=== PATIENT | female | born 1990 | race Caucasian/White ===

== ENCOUNTER 2021-04-07 09:19 | Outpatient (REF) | payer OTHER, SELFPAY ==
[2021-04-07 10:43] LABS: MANUAL DIFF FLAG NO
[2021-04-07 10:48] LABS: Basophils Percent Auto 0.7 % (0-2); Eosinophils Absolute Auto 0.2 X10*3/uL (0.0-0.4); Eosinophils Percent Auto 2.5 % (0-4); Hematocrit 40.3 % (37-47); Hemoglobin 13.5 g/dl (12.0-16.0); Imm Gran Abs Auto 0.02 X10*3/uL (0.00-0.03); Imm Gran Pct Auto 0.3 % (0.0-0.4); Lymphocytes Absolute Auto 2.1 X10*3/uL (1.2-4.9); Lymphocytes Percent Auto 34.8 % (20-40); Mean Corpuscular HGB Conc 33.5 g/dl (31.0-35.0); Mean Corpuscular Hemoglobin 29.3 pg (27.0-33.0); Mean Corpuscular Volume 87.6 fL (80-98); Mean Platelet Volume 10.5 fL (9.4-12.3); Monocytes Absolute Auto 0.3 X10*3/uL (0.1-1.2); Monocytes Percent Auto 5.6 % (2-11); Neutrophils Absolute Auto 3.3 X10*3/uL (2.0-8.3); Neutrophils Percent Auto 56.1 % (45-73); Platelet Count 287 X10*3/uL (160-400); Red Cell Distribution Width 13.2 % (11.0-16.0); White Blood Count 5.9 X10*3/uL (4.8-10.8)
[2021-04-07 10:55] LABS: Estimated Average Glucose 97 mg/dL; Hemoglobin A1C 111.9952 umol/L
[2021-04-07 11:05] LABS: Alanine Aminotransferase 15 U/L (0-31); Albumin Level 4.8 g/dL (3.5-5.0); Alkaline Phosphatase 85 U/L (39-117); Anion Gap 15 (12-20); Aspartate Amino Transferase 20 U/L (5-31); Bilirubin Total 0.5 mg/dL (0.0-1.0); Blood Urea Nitrogen 10 mg/dL (9-16); C Reactive Protein 0.38 mg/dL (< or = 0.50); Carbon Dioxide 23 mmol/L (22-29); Chloride 101 mmol/L (96-108); Cholesterol 258 mg/dL; Estimated Glomerular Filt Rate > 60; Glucose Random 85 mg/dL (60-115); HDL Cholesterol 49 mg/dL; LDL Cholesterol Calculated 189 mg/dl; Potassium 4.3 mmol/L (3.3-5.1); Sodium 135 mmol/L (135-145); Triglycerides 103 mg/dL
[2021-04-07 11:29] LABS: Vitamin D 25-OH Total 28.2 ng/mL (>30)
[2021-04-07 11:38] LABS: Erythrocyte Sedimentation Rate 16 MM/HR (0-20)
[2021-04-09 08:13] LABS: HBsAGNum1 0.17 S/CO (0.00-0.99); Hepatitis B Surface Antigen Negative (Negative)
[2021-04-09 08:14] LABS: ~HepC Num1 0.23 S/CO (0.00-0.79); ~Hepatitis C Antibody Nonreactive (Nonreactive)
[2021-04-09 08:29] LABS: ~Hepatitis B Surface Antibody REACTIVE (Nonreactive)
[2021-04-09 08:42] LABS: Folate 9.4 ng/mL (> or = 4.0); Vitamin B12 425 pg/mL (200-900)
[2021-04-09 09:35] LABS: HIV AB/AG Nonreactive (Nonreactive); HIV Num 1 0.04 S/CO (0.00-0.99)
[2021-04-09 23:32] LABS: Anti Nuclear Antibody Pattern Mitotic, Centrosome; Anti Nuclear Antibody Screen POSITIVE (NEGATIVE)
== END 2021-04-07 09:20 | disposition home or self-care (01) ==
LOC: HO.LAB 09:19
PROVIDERS: PCP Internal Medicine; Visit Provider Internal Medicine
DX: F32.1 Major depressive disorder, single episode, moderate (principal); F51.04 Psychophysiologic insomnia; M54.41 Lumbago with sciatica, right side; R53.82 Chronic fatigue, unspecified
CPT/HCPCS: 36415; 80053; 80061; 82306; 82607; 82746; 83036; 84443; 85025; 85652; 86038; 86039; 86140; 86706; 86803; 87340; 87389

== ENCOUNTER 2022-09-20 10:40 | Emergency (ER) | payer OTHER, SELFPAY ==
[2022-09-20 10:55] VITALS: BP 111/60; PULSE 73; RESP 16; TEMP 36.7; O2SAT 97; BMI 38.7
--- NOTE | 2022-09-20 11:26 | ED_ITS ---
HPI - General Adult General Chief complaint: General Medical Stated complaint: Inhaled Diesel Fumes Time Seen by Provider: 09/20/22 11:16 Source: patient and family Mode of arrival: ambulatory Limitations: no limitations History of Present Illness HPI narrative: 32-year-old female came in after patient smelled diesel fuel inhalation at work. Came in for evaluation after fell dizzy and almost going to pass out after she smelled the exhaust of diesel operating generator at work, patient was at her small office with no window in the room, patient had to go outside felt slightly better came in for further evaluation of her symptoms. Related Data Allergies Allergy/AdvReac Type Severity Reaction Status Date / Time No Known Allergies Allergy Verified 09/20/22 11:25 Review of Systems Review of Systems: All other systems are reviewed and are negative Constitutional: Reports as per HPI and Reports no additional constitutional complaints Eyes: Reports as per HPI and Reports no additional eye complaints Reports system reviewed and no additional complaints, except as documented Cardiovascular: Reports as per HPI and Reports no additional cardiovascular complaints Respiratory: Reports as per HPI and Reports no additional respiratory complaints Gastrointestinal: Reports as per HPI and Reports no additional gastrointestinal complaints Genitourinary: Reports no additional female genitourinary complaints Musculoskeletal: Reports no additional musculoskeletal complaints Skin/Breast: Reports system reviewed and no additional complaints, except as docu Psychiatric: Reports no additional psychiatric complaints Endocrine: Reports no additional endocrine complaints Hematologic/Lymphatic: Reports no additional hematologic/lymphatic complaints Allergic/Immunologic: Reports no additional allergic/immunologic complaints Reports system reviewed and no additional complaints, except as documented and Reports Abnormal speech present [facility] Social History Social History Advance Directives: No Advance Directives Information Provided: No Physical Exam ED Vital Signs: Vital Signs - 24 hr 09/20/22 10:55 Temperature 98.0 F Pulse Rate 73 Respiratory Rate 16 Blood Pressure 111/60 Pulse Oximetry 97 Oxygen Delivery Method Room Air BMI result Body Mass Index 38.7 Vital signs have been reviewed as appeared to be correct. Blood pressure normal. Heart rate normal. Respiration rate normal. Temperature normal. Oxygen saturation normal. Appearance: Alert. Oriented X3. No acute distress. Head: Normal external exam. Normocephalic. Atraumatic. No Lilly signs noted. No raccoon eyes noted Eyes: PERRLA. EOMI. Conjunctiva and sclera normal. Eyelids normal. ENT: TM's Normal. Pharynx normal. Uvula midline. Moist mucous membranes. No trismus noted. No drooling noted. No muffled voice noted. Neck: Normal inspection. Neck supple. FROM. No adenopathy. Thyroid Normal. No meningeal signs. No neck mass noted. CVS: Normal heart rate and rhythm. Heart sound normal. No murmurs noted. Pulses normal throughout. Respiratory: No respiratory distress. Painless inspiration. Breath sounds normal. No wheezes/rales/rhonchi noted. Chest nontender. No accessory muscle usage noted or decreased air movement noted. Abdomen: Soft and nontender. Bowel sounds normal in all 4 quadrants. No distention noted. No organomegaly noted. No visible injury noted. Back: No CVA tenderness. Full range of motion noted. Skin: Skin warm and dry. Normal skin color. Normal skin turgor. No rashes/lesions/lacerations noted. Extremities: No lower extremity edema. Extremities exhibit normal range of motion. Extremities nontender. Neuro: Oriented X 3. Cranial nerve exam: II-XII are grossly intact No motor deficit. No sensory deficit. Reflexes normal. Course Course Course Narrative: 32-year-old female came in for evaluation of dizziness after inhalation of diesel generator exhaust, normal carbon monoxide was no smoke inhalation, patient has been asymptomatic while she was in the emergency department on 2 L of nasal cannula. No respiratory distress no difficulty breathing. Medical Decision Making Differential Diagnosis Differential Diagnoses: The differential diagnosis associated with the presentation includes (Carbon monoxide poison, suffocation, irritation of upper respiratory track.) Discharge Plan Discharge Clinical Impression: Inhalation injury due to chemical Patient Disposition: Home, Self-Care Instructions: Smoke Inhalation (ED)
[2022-09-20 12:19] LABS: Carbon Monoxide Refer to POC result
[2022-09-20 12:19] LABS: MANUAL DIFF FLAG NO
[2022-09-20 12:21] LABS: Basophils Absolute Auto 0.1 X10*3/uL (0.0-0.2); Basophils Percent Auto 0.8 % (0-2); Eosinophils Absolute Auto 0.1 X10*3/uL (0.0-0.4); Hematocrit 38.7 % (37.0-47.0); Hemoglobin 13.1 g/dl (12.0-16.0); Imm Gran Abs Auto 0.01 X10*3/uL (0.00-0.03); Imm Gran Pct Auto 0.2 % (0.0-0.4); Lymphocytes Absolute Auto 2.1 X10*3/uL (1.2-4.9); Lymphocytes Percent Auto 33.6 % (20-40); Mean Corpuscular HGB Conc 33.9 g/dl (31.0-35.0); Mean Corpuscular Hemoglobin 29.3 pg (27.0-33.0); Mean Corpuscular Volume 86.6 fL (80.0-98.0); Monocytes Absolute Auto 0.4 X10*3/uL (0.1-1.2); Monocytes Percent Auto 6.9 % (2-11); Neutrophils Absolute Auto 3.5 x10*3/uL (2.0-8.3); Neutrophils Percent Auto 56.5 % (45-73); Platelet Count 274 X10*3/uL (160-400); Red Blood Count 4.47 X10*6/uL (4.20-5.50); White Blood Count 6.1 X10*3/uL (4.8-10.8)
[2022-09-20 12:22] LABS: Carbon Monoxide POC 2.6 %
[2022-09-20 12:38] LABS: Anion Gap 10 (12-20); Blood Urea Nitrogen 10 mg/dL (9-16); Calcium 9.5 mg/dL (8.4-10.2); Carbon Dioxide 28 mmol/L (22-29); Chloride 106 mmol/L (96-108); Creatinine Clr Calc Pharmacy 113.1; Estimated Glomerular Filt Rate > 60; Glucose Random 89 mg/dL (60-115); Potassium 4.2 mmol/L (3.3-5.1); Sodium 140 mmol/L (135-145)
[2022-09-20 12:42] LABS: HCG Quantitative < 2 mIU/mL
[2022-09-20 13:29] VITALS: BP 116/81; PULSE 71; RESP 18; O2SAT 96
== END 2022-09-20 13:32 | disposition home or self-care (01) ==
PROVIDERS: Emergency Provider Emergency Medicine
DX: T58.01XA Toxic effect of carbon monoxide from motor vehicle exhaust, accidental (unintentional), initial encounter (principal); Y92.9 Unspecified place or not applicable; Z79.899 Other long term (current) drug therapy
CPT/HCPCS: 36415; 80048; 82375; 84702; 85025; 99283

== ENCOUNTER 2023-03-02 21:45 | Observation (INO) | payer OTHER, SELFPAY ==
--- NOTE | ~2023-03-02 | US_ITS ---
EXAMINATION: US ABDOMEN LIMITED CLINICAL INFORMATION: Cholecystitis. COMPARISON: None available. TECHNIQUE: Real-time imaging of the right upper quadrant abdominal viscera. FINDINGS: PANCREAS: Most of the pancreas obscured by overlying gas.. LIVER: The liver is normal in size. The liver contour is normal. Parenchymal echogenicity is increased.. No focal hepatic lesion. There is no intrahepatic biliary duct dilatation seen. GALLBLADDER: There are multiple echogenic gallstones and echogenic bile in the neck of the gallbladder. Gallbladder wall thickness measures 0.3-1.2). No pericholecystic fluid seen. COMMON BILE DUCT: Normal in caliber measuring 0.5 cm in diameter. RIGHT KIDNEY: Normal. No hydronephrosis. No renal calculi or focal parenchymal lesions. The kidney measures 10.1 cm in maximum dimension. FREE FLUID: None. US/US abdomen limited IMPRESSION: 1. Cholelithiasis with echogenic bile in the neck of the gallbladder. There is mild wall thickening. No pericholecystic fluid collection. 2. Rest of the limited right upper quadrant ultrasound is unremarkable..
--- NOTE | ~2023-03-02 | CT_ITS ---
EXAMINATION: CT ABDOMEN AND PELVIS WITH CONTRAST CLINICAL INFORMATION: Abdominal pain COMPARISON: None available. TECHNIQUE: Multidetector volumetric images were obtained from the superior aspect of the liver through the pubic symphysis following administration 85 mL of Omnipaque 350 intravenous contrast. Sagittal and coronal reformatted images were obtained on the technologist's workstation. Oral contrast: No This CT examination was performed using dose optimization techniques as appropriate, variously including the following: *Automated exposure control *Adjustment of mA and/or kV according to patient size (this includes techniques or standardized protocols for targeted exams where dose is matched to indication/reason for exam; i.e. extremities or head) *Use of iterative reconstruction technique DLP: 654 mGy-cm FINDINGS: LUNG BASES: There is dependent bibasilar atelectasis. The heart size is normal.. LIVER, GALLBLADDER, AND BILIARY TREE: The liver is normal in size, shape, and attenuation. No focal hepatic lesion or biliary ductal dilatation is present. The gallbladder is distended with diffuse gallbladder wall thickening and pericholecystic fluid collection. The enhancing 1 cm nodule in the neck of the gallbladder. No radiopaque calculi seen. The CBD is normal caliber. PANCREAS: Unremarkable. SPLEEN: Unremarkable. ADRENAL GLANDS: Unremarkable. KIDNEYS AND URETERS: The kidneys are normal in size, shape, and attenuation. No hydronephrosis, hydroureter, or calculi seen. No perinephric stranding. BLADDER: Unremarkable. GASTROINTESTINAL TRACT: There is scattered stool and gas seen throughout the colon without distention. The small bowel loops are normal caliber. Appendix is not visualized. No free air or free fluid seen. ABDOMINAL WALL: No significant hernia is appreciated. LYMPH NODES: Normal. VASCULAR: Unremarkable. PELVIC VISCERA: Unremarkable. OSSEOUS STRUCTURES: Unremarkable. CT/CT abdomen pelvis w IV con IMPRESSION: Suspect acalculus cholecystitis. In addition there is enhancing nodule in neck of the gallbladder wall. Mild constipation without obstruction. Appendix is not seen. Fleischner guidelines were followed.
[2023-03-02 21:51] VITALS: BP 126/84; PULSE 83; RESP 18; TEMP 36.8; O2SAT 96; BMI 37.6
[2023-03-02 22:12] LABS: MANUAL DIFF FLAG NO
[2023-03-02 22:15] LABS: Basophils Absolute Auto 0.1 X10*3/uL (0.0-0.2); Basophils Percent Auto 0.4 % (0-2); Eosinophils Percent Auto 0.1 % (0-4); Hematocrit 40.9 % (37.0-47.0); Hemoglobin 14.1 g/dl (12.0-16.0); Imm Gran Abs Auto 0.04 X10*3/uL (0.00-0.03); Imm Gran Pct Auto 0.3 % (0.0-0.4); Lymphocytes Absolute Auto 1.4 X10*3/uL (1.2-4.9); Lymphocytes Percent Auto 10.8 % (20-40); Mean Corpuscular HGB Conc 34.5 g/dl (31.0-35.0); Monocytes Absolute Auto 0.4 X10*3/uL (0.1-1.2); Monocytes Percent Auto 2.7 % (2-11); Neutrophils Absolute Auto 11.1 x10*3/uL (2.0-8.3); Neutrophils Percent Auto 85.7 % (45-73); Platelet Count 371 X10*3/uL (160-400); Red Blood Count 4.87 X10*6/uL (4.20-5.50); Red Cell Distribution Width 13.1 % (11.0-16.0); White Blood Count 12.9 X10*3/uL (4.8-10.8)
[2023-03-02 22:18] LABS: Appearance Urine Clear; Color Urine Yellow; Glucose Urine UA Negative (Negative); Leukocyte Esterase Urine Negative (Negative); Nitrite Urine Negative (Negative); PH 5.5 (5.0-9.0); Specific Gravity - Urine 1.025 (1.005-1.025); UMIC TRIGGER UACC YES; Urine Blood Moderate (2+) (Negative); Urine Ketones 80 mg/dL (Negative); Urine Protein Trace mg/dL (Neg-Trace)
[2023-03-02 22:20] LABS: UPreg QC Valid YES; Urine Pregnancy NEGATIVE (NEGATIVE)
[2023-03-02 22:23] LABS: Bacteria Urine None Seen (None Seen); Squamous Epithelial Cell Urine 0-2 /HPF (0-2); WBC Urine 0-5 /HPF (0-5)
[2023-03-02 22:39] LABS: Alanine Aminotransferase 17 U/L (0-31); Albumin Level 4.4 g/dL (3.5-5.0); Alkaline Phosphatase 111 U/L (39-117); Anion Gap 17 (12-20); Aspartate Amino Transferase 21 U/L (5-31); Bilirubin Total 0.5 mg/dL (0.0-1.0); Blood Urea Nitrogen 6 mg/dL (9-16); Calcium 10.2 mg/dL (8.4-10.2); Carbon Dioxide 22 mmol/L (22-29); Chloride 99 mmol/L (96-108); Creatinine Clr Calc Pharmacy 91.6; Estimated Glomerular Filt Rate > 60; Glucose Random 123 mg/dL (60-115); Potassium 4.4 mmol/L (3.3-5.1); Sodium 134 mmol/L (135-145); Total Protein 8.6 g/dL (6.5-8.0)
[2023-03-03] VITALS (21 sets, daily range): BP systolic 104–144; BP diastolic 61–88; PULSE 68–99; RESP 14–20; TEMP 36.1–37.3; O2SAT 92–99
--- NOTE | 2023-03-03 03:29 | ED_ITS ---
HPI - Abdominal Pain General Chief Complaint: Abdominal Pain Stated Complaint: abd pain/constipated/dehydrated Time Seen by Provider: 03/03/23 02:48 History of Present Illness HPI narrative: Patient is a 32-year-old female present today with having abdominal pain. The abdominal pain is diffuse over the entire abdomen. Had a history of IBS. Also had some nausea vomiting. No diarrhea. No fever no chills. Patient does not think she is . No pain on urination. Patient denies any flank pain. No cough no congestion officer symptoms no chest pain. No history of abdominal surgery in the past. question related to fatty food prior to a pain started. Related Data Allergies Allergy/AdvReac Type Severity Reaction Status Date / Time No Known Allergies Allergy Verified 09/20/22 11:25 Review of Systems Review of Systems Positive abdominal pain Yes all other systems are reviewed and are negative PMFSH Past Medical History Attestation statement: The following information was validated with the patient. Social History Social History Alcohol intake: never Smoked in Last 30 Days: No Use of substances other than those prescribed or required for medical reasons: No Advance Directives: No Advance Directives Information Provided: No Patient : No Physical Exam ED Vital Signs: Vital Signs - 24 hr 03/02/23 21:51 03/03/23 02:30 03/03/23 03:39 Temperature 98.2 F 98.4 F Pulse Rate 83 68 Respiratory Rate 18 18 16 Blood Pressure 126/84 144/86 H Pulse Oximetry 96 99 Oxygen Delivery Method Room Air Room Air 03/03/23 05:33 03/03/23 05:34 03/03/23 06:19 Temperature 98.7 F 98.4 F 98.3 F Pulse Rate 77 74 72 Respiratory Rate 16 18 Blood Pressure 142/78 H 135/77 122/78 Pulse Oximetry 99 97 Oxygen Delivery Method Room Air Room Air BMI result Body Mass Index 37.6 Appearance: Alert. Oriented X3. No acute distress. Eyes: Pupils equal, round and reactive to light. ENT: Pharynx normal. Neck: Normal inspection. Neck supple. No lymph nodes noted. No crepitus CVS: Normal heart rate and rhythm. Pulses normal. Normal S1 and S2 Respiratory: No respiratory distress. Breath sounds normal. No Wheezing. No rales Abdomen: Soft, mild epigastric pain, no rebound, no guarding. No rigidity. No distention. good BS x4 Skin: Skin warm and dry. Normal skin color. Normal skin turgor. Extremities: No lower extremity edema. Neurovascular intact to all extremities. No Lacerations. No Rash Neuro: Oriented X 3. No motor deficit. No sensory deficit. Moving all extermities. No slurred speech Medical Decision Making Medical Decision Making [facility] Narrative: positive abdominal pain diffuse over the entire abdomen history of IBS. Patient's LFTs were normal. CT scan showed possible acalculous cholecystitis. Patient's ultrasound is consistent with having cholecystitis. Antibiotic was started. Cultures obtained. Patient's case discussed with surgery. Will admit patient for possible surgery. Patient's urine showed no signs of infection. test was negative unlikely to be related issues. Differential Diagnosis Differential Diagnoses: The differential diagnosis associated with the presentation includes obstruction, abscess, perforation, diverticulitis, cholecystitis Admission/Observation Consideration of admission/observation: Escalation of care including admission/observation considered Consult Healthcare Provider Management of the patient was discussed with: Founding Partner surgery Lab Data [facility] Lab Attestation statement: I reviewed the patient's lab results. 03/02/23 22:07 03/02/23 22:07 Labs: Lab Results 03/02/23 03/02/23 03/02/23 Range/Units 22:05 22:05 22:07 WBC 12.9 H (4.8-10.8) X10*3/uL RBC 4.87 (4.20-5.50) X10*6/uL Hgb 14.1 (12.0-16.0) g/dl Hct 40.9 (37.0-47.0) % MCV 84.0 (80.0-98.0) fL MCH 29.0 (27.0-33.0) pg MCHC 34.5 (31.0-35.0) g/dl RDW 13.1 (11.0-16.0) % Plt Count 371 D (160-400) X10*3/uL MPV 10.0 (9.4-12.3) fL Immature Gran % (Auto) 0.3 (0.0-0.4) % Neut % (Auto) 85.7 H (45-73) % Lymph % (Auto) 10.8 L (20-40) % [place] % (Auto) 2.7 (2-11) % Eos % (Auto) 0.1 (0-4) % Baso % (Auto) 0.4 (0-2) % Lymph # (Auto) 1.4 (1.2-4.9) X10*3/uL [place] # (Auto) 0.4 (0.1-1.2) X10*3/uL Eos # (Auto) 0.0 (0.0-0.4) X10*3/uL Baso # (Auto) 0.1 (0.0-0.2) X10*3/uL Abs Immat Gran (auto) 0.04 H (0.00-0.03) X10*3/uL Absolute Neuts (auto) 11.1 H (2.0-8.3) x10*3/uL Absolute Nucleated RBC 0.000 (0.0-0.012) X10*3/uL Nucleated RBC % (auto) 0.0 (0.0-0.2) /100WBC Sodium (135-145) mmol/L Potassium (3.3-5.1) mmol/L Chloride (96-108) mmol/L Carbon Dioxide (22-29) mmol/L Anion Gap (12-20) BUN (9-16) mg/dL Creatinine (0.5-1.4) mg/dL Estim Creat Clear Calc Estimated GFR Random Glucose (60-115) mg/dL Calcium (8.4-10.2) mg/dL Total Bilirubin (0.0-1.0) mg/dL AST (5-31) U/L ALT (0-31) U/L Alkaline Phosphatase (39-117) U/L Total Protein (6.5-8.0) g/dL Albumin (3.5-5.0) g/dL Urine Color Yellow Urine Appearance Clear Urine pH 5.5 (5.0-9.0) Ur Specific [place] 1.025 (1.005-1.025) Urine Protein Trace (Neg-Trace) mg/dL Urine Glucose (UA) Negative (Negative) mg/dL Urine Ketones 80 (Negative) mg/dL Urine Blood Moderate (2+) H (Negative) Urine Nitrite Negative (Negative) Ur Leukocyte Esterase Negative (Negative) Urine RBC 11-20 H (0-2) /HPF Urine WBC 0-5 (0-5) /HPF Ur Squamous Epith Cells 0-2 (0-2) /HPF Urine Bacteria None Seen (None Seen) Hyaline Casts 3-5 (0-2) /LPF Urine Test NEGATIVE (NEGATIVE) 03/02/23 Range/Units 22:07 WBC (4.8-10.8) X10*3/uL RBC (4.20-5.50) X10*6/uL Hgb (12.0-16.0) g/dl Hct (37.0-47.0) % MCV (80.0-98.0) fL MCH (27.0-33.0) pg MCHC (31.0-35.0) g/dl RDW (11.0-16.0) % Plt Count (160-400) X10*3/uL MPV (9.4-12.3) fL Immature Gran % (Auto) (0.0-0.4) % Neut % (Auto) (45-73) % Lymph % (Auto) (20-40) % [place] % (Auto) (2-11) % Eos % (Auto) (0-4) % Baso % (Auto) (0-2) % Lymph # (Auto) (1.2-4.9) X10*3/uL [place] # (Auto) (0.1-1.2) X10*3/uL Eos # (Auto) (0.0-0.4) X10*3/uL Baso # (Auto) (0.0-0.2) X10*3/uL Abs Immat Gran (auto) (0.00-0.03) X10*3/uL Absolute Neuts (auto) (2.0-8.3) x10*3/uL Absolute Nucleated RBC (0.0-0.012) X10*3/uL Nucleated RBC % (auto) (0.0-0.2) /100WBC Sodium 134 L (135-145) mmol/L Potassium 4.4 (3.3-5.1) mmol/L Chloride 99 (96-108) mmol/L Carbon Dioxide 22 (22-29) mmol/L Anion Gap 17 (12-20) BUN 6 L (9-16) mg/dL Creatinine 0.85 (0.5-1.4) mg/dL Estim Creat Clear Calc 91.6 Estimated GFR > 60 Random Glucose 123 H (60-115) mg/dL Calcium 10.2 D (8.4-10.2) mg/dL Total Bilirubin 0.5 (0.0-1.0) mg/dL AST 21 (5-31) U/L ALT 17 (0-31) U/L Alkaline Phosphatase 111 (39-117) U/L Total Protein 8.6 H (6.5-8.0) g/dL Albumin 4.4 (3.5-5.0) g/dL Urine Color Urine Appearance Urine pH (5.0-9.0) Ur Specific [place] (1.005-1.025) Urine Protein (Neg-Trace) mg/dL Urine Glucose (UA) (Negative) mg/dL Urine Ketones (Negative) mg/dL Urine Blood (Negative) Urine Nitrite (Negative) Ur Leukocyte Esterase (Negative) Urine RBC (0-2) /HPF Urine WBC (0-5) /HPF Ur Squamous Epith Cells (0-2) /HPF Urine Bacteria (None Seen) Hyaline Casts (0-2) /LPF Urine Test (NEGATIVE) Medications Administered Discontinued Medications Generic Name Dose Route Start Last Admin Trade Name Freq PRN Reason Stop Dose Admin Hydromorphone HCl 0.5 mg 03/03/23 03:22 03/03/23 03:39 Hydromorphone Hcl 0.5 Mg/0.5 Ml Syringe IVPUSH 03/03/23 03:23 0.5 mg ONCE ONE Administration Protocol Sodium Chloride 1,000 mls @ 999 mls/hr 03/03/23 03:30 03/03/23 05:44 Ns IV 03/03/23 04:30 Infused .Q1H1M ROB Infusion Ceftriaxone Sodium 2 gm/ 50 mls @ 100 mls/hr 03/03/23 04:51 03/03/23 05:42 Sodium Chloride IV 03/03/23 05:20 100 mls/hr ONCE ONE Administration Iohexol 85 ml 03/03/23 04:05 03/03/23 04:05 Iohexol 350 Mg/Ml 100 Ml Infus..Btl IV 03/03/23 04:06 85 ml ONCE ONE Administration Ondansetron HCl 4 mg 03/03/23 03:22 03/03/23 03:38 Ondansetron Hcl 4 Mg/2 Ml Vial IVPUSH 03/03/23 03:23 4 mg ONCE ONE Administration Discharge Plan Discharge Clinical Impression: Cholecystitis Patient Disposition: Admitted As Inpatient
[2023-03-03] MEDS: ondansetron HCL 4 MG/2 ML VIAL IVPUSH (03:38)
[2023-03-03] MEDS: HYDROmorphone HCl 0.5 MG/0.5 ML SYRINGE IVPUSH ×2 (03:39→07:29)
[2023-03-03] MEDS: 0.9 % Sodium Chloride 1,000 ML 999 ML IV (03:39)
[2023-03-03] MEDS: iohexoL 350 MG/ML 100 ML INFUS..BTL 85 ML IV (04:05)
[2023-03-03] MEDS: cefTRIAXone sodium 2 GM in 0.9 % Sodium Chloride 50 ML IV (05:42)
--- NOTE | 2023-03-03 05:48 | PC.NURSE ---
patient is having all labs to be drawn and patient will receive all antibiotics patient pain was to a 09/17 patient will continue to be monitored for safety
--- NOTE | 2023-03-03 06:33 | PC.NURSE ---
patient had all labs and blood work to be sent to the lab patient was able to tolerate all meds that was ordered with no issues
--- NOTE | 2023-03-03 07:36 | PHA.MEDREC ---
Pharmacy Consult ? Medication Reconciliation Pharmacy has completed the medication reconciliation.
--- NOTE | 2023-03-03 08:00 | PC.NURSE ---
patient a&ox3, lungs clear, pt c/o 01/15 abd pain- pt medicated for pain per order, pt has been NPO since yesterday morning per pt, pt is aware she is to continue to be NPO for OR. vitals stable, family at bedside, call hill within reach, will continue to monitor.
--- NOTE | 2023-03-03 08:33 | PM.HPGS ---
History of Present Illness History of Present Illness Date of Service: 03/03/23 Chief complaint: abd pain/constipated/dehydrated Narrative: Destinee Alexander is a 32 year old female who presented to the ED with complaints of abdominal pain. She reports she developed some mild central abdominal pain on . This was associated with bloating and constipation. She was recently diagnosed with IBS and she attributed the pain to that. The pain became different yesterday morning and migrated to the epigastric region and she vomited multiple times last night. She was unable to tolerate even water prompting her to seek care in the ED. Work up included CT scan/ABD US which showed gallstones, gallbladder wall thickening and stone/sludge in the gallbladder neck. She had a leukocytosis of 12.9. LFTs WNL. She reports continued pain this morning but somewhat improved following pain meds. Review of Systems Constitutional: Constitutional: Denies chills and Denies fever(s) ENT: Denies dizziness Cardiovascular: Cardiovascular: Denies dyspnea Respiratory: Respiratory: Denies cough and Denies dyspnea Gastrointestinal: Gastrointestinal: Reports as per HPI, Denies diarrhea and Denies hematemesis Genitourinary: Genitourinary: Denies dysuria Integumentary/Breasts: Skin/Breast: Denies rash and Denies jaundice Neurologic: Denies dizziness PMFSH Past Medical History Medical History (Updated 03/03/23 @ 08:41 by Anali Betancourt PA-C) IBS (irritable bowel syndrome) Social History Social History Alcohol intake: never Smoked in Last 30 Days: No Use of substances other than those prescribed or required for medical reasons: No Advance Directives: No Advance Directives Information Provided: No Patient : No Meds Allergies Allergy/AdvReac Type Severity Reaction Status Date / Time No Known Allergies Allergy Verified 09/20/22 11:25 Home Medications Medication Instructions Recorded Confirmed Last Taken Type omeprazole 20 mg capsule,delayed 20 mg PO DAILY@0630 03/03/23 03/03/23 03/02/23 History release Physical Exam Vital Signs: Vital Signs: Last Vital Signs Temp 98.4 F 03/03/23 07:29 Pulse 84 03/03/23 07:29 Resp 18 03/03/23 07:29 BP 108/63 03/03/23 07:29 Pulse Ox 95 03/03/23 07:29 O2 Del Method Room Air 03/03/23 07:29 BMI result Body Mass Index 37.6 Const: General: comfortable, no acute distress and alert Orientation/consciousness: patient oriented x3 Resp: Effort & Inspection: normal respiratory effort Cardio: Rate: regular rate GI: Inspection: No distended Palpation (GI): Soft to palpation, Tenderness to palpation present (GI) in the epigastrum (moderate); Almanzar's sign negative and with no rebound tenderness, no guarding and not rigid Percussion: Yes normal to percussion Skin: General skin exam: no rashes or lesions noted Neuro: General: patient oriented x3 and moves all extremities Extrem: General: Yes no clubbing, cyanosis or edema Results Results Labs: Short CBC 03/02/23 Range/Units 22:07 WBC 12.9 H (4.8-10.8) X10*3/uL Hgb 14.1 (12.0-16.0) g/dl Hct 40.9 (37.0-47.0) % Plt Count 371 D (160-400) X10*3/uL BMP 03/02/23 22:07 Sodium 134 L Potassium 4.4 Chloride 99 Carbon Dioxide 22 BUN 6 L Creatinine 0.85 Calcium 10.2 D Liver Function 03/02/23 Range/Units 22:07 Total Bilirubin 0.5 (0.0-1.0) mg/dL AST 21 (5-31) U/L ALT 17 (0-31) U/L Alkaline Phosphatase 111 (39-117) U/L Albumin 4.4 (3.5-5.0) g/dL Urine 03/02/23 03/02/23 Range/Units 22:05 22:05 Urine Color Yellow Urine Appearance Clear Urine pH 5.5 (5.0-9.0) Ur Specific [place] 1.025 (1.005-1.025) Urine Protein Trace (Neg-Trace) mg/dL Urine Glucose (UA) Negative (Negative) mg/dL Urine Test NEGATIVE (NEGATIVE) Abdomen CT scan report/results: report reviewed and image reviewed Assessment and Plan (1) Acute calculous cholecystitis: Status: Acute Plan 32 year old female who presented with epigastric abd pain, vomiting with epigastric tenderness and imaging showing gallbladder wall thickening. Clinical picture suggestive of acute cholecystitis. She continues to have pain this morning despite antibiotics and analgesics. Given the gallstone lodged at the gallbladder neck, it was recommended to proceed with laparoscopic cholecystitis, possible open. Risks, benefits, alternatives of the procedure were reviewed with the patient including but not limited to bleeding, infection, numbness, pain, poor healing, injury to the liver, bowel or bile ducts, leak, retained stones. The patient understands and wishes to proceed.? Arrangements will be made for this.?All questions were answered. Cont NPO status, IVF. Time Spent With Patient Time: Total time managing care of this patient today ____ minutes. Quality Stroke Does the patient have a stroke diagnosis?: No VTE Prior VTE?: No VTE Risk Level:: Surgical - low VTE Device Contraindication: N/A - Device Ordered VTE Drug Contraindication: Treatment Not Indicated Procedures Date of Service Date of Service: 03/03/23
[2023-03-03] MEDS: Lactated Ringers 1,000 ML 100 ML IVCONT (09:19)
--- NOTE | 2023-03-03 09:36 | PC.NURSE ---
LR administered per provider order, pt's pain reassessed stating pain decreased to 3/10, pt lying comfortably in bed, call hill placed within reach.
[2023-03-03] MEDS: Morphine Sulfate 4 MG/ML CARTRIDGE IVPUSH (10:15)
--- NOTE | 2023-03-03 10:20 | PC.NURSE ---
pt alert and oriented, pt had a pain increase from 3/10 to an 8/10, pain medications administered per provider order, pt tolerated medication administration well, will continue to monitor.
--- NOTE | 2023-03-03 11:48 | PC.NURSE ---
pt to OR with OR transport at [id number]
--- NOTE | 2023-03-03 12:58 | HO.ANESPROP2 ---
HPI - Anesthesia Eval Consult details Narrative: for emergency cholycystectomy PMFSH Active Problems Active Problems: All Active Problems (Updated 03/03/23 @ 11:58 by Valeria Galindo) Cholecystitis (Acute) Acute calculous cholecystitis (Acute) Past Medical History Medical History (Updated 03/03/23 @ 11:58 by Valeria Galindo) Environmental allergies IBS (irritable bowel syndrome) Family History Family history of problems with anesthesia: No Surgical History Surgical History (Updated 03/03/23 @ 11:58 by Valeria Galindo) No pertinent past surgical history History of Problems with Anesthesia: No Social History Social History Alcohol intake: never Patient Tobacco Use Status: Never used Tobacco Smoked in Last 30 Days: No Use of substances other than those prescribed or required for medical reasons: No Are you DNR?: No Advance Directives: No Advance Directives Information Provided: No Patient : No Meds Allergies Allergy/AdvReac Type Severity Reaction Status Date / Time No Known Allergies Allergy Verified 03/03/23 11:58 Active Medications: Current Medications Lactated Ringer's (Lr) 1,000 mls @ 100 mls/hr IVCONT .Q10H ROB Last Admin: 03/03/23 09:19 Dose: 100 mls/hr Morphine Sulfate (Morphine Sulfate 4 Mg/Ml Cartridge) 4 mg IVPUSH Q4H PRN; Protocol PRN Reason: Pain, Severe (Pain Scale 7-10) Last Admin: 03/03/23 10:15 Dose: 4 mg Home Medications Medication Instructions Recorded Confirmed Last Taken Type omeprazole 20 mg capsule,delayed 20 mg PO DAILY@0630 03/03/23 03/03/23 03/02/23 History release Exam Exam Date and Time: March 03, 2023 1258 Height,Weight and Vital Signs: Height 5 ft Weight 87.4 kg Last Vital Signs Temp 99.1 F 03/03/23 11:58 Pulse 85 03/03/23 11:58 Resp 16 03/03/23 11:58 BP 122/80 03/03/23 11:58 Pulse Ox 95 03/03/23 11:58 O2 Del Method Room Air 03/03/23 11:58 Pertinent Lab Results Pertinent Lab Results: Laboratory Tests 03/02/23 03/02/23 03/02/23 22:05 22:05 22:07 WBC 12.9 H RBC 4.87 Hgb 14.1 Hct 40.9 MCV 84.0 MCH 29.0 MCHC 34.5 RDW 13.1 Plt Count 371 D MPV 10.0 Immature Gran % (Auto) 0.3 Neut % (Auto) 85.7 H Lymph % (Auto) 10.8 L Wagoner % (Auto) 2.7 Eos % (Auto) 0.1 Baso % (Auto) 0.4 Lymph # (Auto) 1.4 Wagoner # (Auto) 0.4 Eos # (Auto) 0.0 Baso # (Auto) 0.1 Abs Immat Gran (auto) 0.04 H Absolute Neuts (auto) 11.1 H Absolute Nucleated RBC 0.000 Nucleated RBC % (auto) 0.0 Sodium Potassium Chloride Carbon Dioxide Anion Gap BUN Creatinine Estim Creat Clear Calc Estimated GFR Random Glucose Lactic Acid Calcium Total Bilirubin AST ALT Alkaline Phosphatase Total Protein Albumin Urine Color Yellow Urine Appearance Clear Urine pH 5.5 Ur Specific Wild Horse 1.025 Urine Protein Trace Urine Glucose (UA) Negative Urine Ketones 80 Urine Blood Moderate (2+) H Urine Nitrite Negative Ur Leukocyte Esterase Negative Urine RBC 11-20 H Urine WBC 0-5 Ur Squamous Epith Cells 0-2 Urine Bacteria None Seen Hyaline Casts 3-5 Urine Test NEGATIVE 03/02/23 03/03/23 22:07 06:17 WBC RBC Hgb Hct MCV MCH MCHC RDW Plt Count MPV Immature Gran % (Auto) Neut % (Auto) Lymph % (Auto) Wagoner % (Auto) Eos % (Auto) Baso % (Auto) Lymph # (Auto) Wagoner # (Auto) Eos # (Auto) Baso # (Auto) Abs Immat Gran (auto) Absolute Neuts (auto) Absolute Nucleated RBC Nucleated RBC % (auto) Sodium 134 L Potassium 4.4 Chloride 99 Carbon Dioxide 22 Anion Gap 17 BUN 6 L Creatinine 0.85 Estim Creat Clear Calc 91.6 Estimated GFR > 60 Random Glucose 123 H Lactic Acid 1.0 Calcium 10.2 D Total Bilirubin 0.5 AST 21 ALT 17 Alkaline Phosphatase 111 Total Protein 8.6 H Albumin 4.4 Urine Color Urine Appearance Urine pH Ur Specific Wild Horse Urine Protein Urine Glucose (UA) Urine Ketones Urine Blood Urine Nitrite Ur Leukocyte Esterase Urine RBC Urine WBC Ur Squamous Epith Cells Urine Bacteria Hyaline Casts Urine Test Airway Mallampati Class: I TM Dist: >3cm Neck ROM: Full Loose/Missing/Broken Teeth: No Heart: rr Lungs: cta Assessment and Plan Final Anesthetic Review Family History of Problems with Anesthesia: No History of Problems with Anesthesia: No NPO: Yes ASA Class: I and Emergency Final Preanesthetic Review: No Changes in Pt Med Stat, Meds/Allgs Chart Reviewed and Consent Obtained/Reviewed Patient Risk: Low Procedure Risk: Low Anesthetic Plan Anesthetic Plan: GA Disposition: Standard PACU
--- NOTE | 2023-03-03 13:33 | W.PM.OPN ---
Operative Note Operative Note Date of Service: 03/03/23 Narrative: Preoperative diagnosis: [] Acute cholecystitis Postop diagnosis: [] Acute phlegmonous cholecystitis Procedure [] laparoscopic cholecystectomy Surgeon: [] Chai Transmitter Engineer In Charge: [] khanh Betancourt Type of Anesthesia: [] General Indication for surgery: [] Large thickened phlegmonous inflamed gallbladder. Markedly intrahepatic gallbladder. Corpulent abdomen. Findings: [] Patient is brought to the operating room, placed on the operating table in a supine position, and after adequate level of general anesthesia was induced, the patient's abdomen was prepped and draped in usual sterile fashion. Using a supraumbilical curvilinear incision, Wiley technique was used to insufflate the abdominal cavity to 15 mm of CO2. Upper midline and right subcostal ports were placed under direct laparoscopic view, and the patient was placed in reverse Trendelenburg position, and tilted to the left. A markedly turgid phlegmonous cholecystitis was encountered which required decompressive aspiration in order to grasp the gallbladder with laparoscopic graspers. Gallbladder was retracted superiorly and laterally. Soft omental and gastric adhesions were swept off the gallbladder, where it is hilum was approached. Cystic artery and cystic duct were identified, skeletonized circumferentially and traced directly to the gallbladder. Critical view was obtained. Each was clipped proximally x2, distally x1, and transected. Gallbladder which was very intrahepatic was then cauterized from the gallbladder fossa using Bovie. Specimen was placed in an Endo-Catch bag, and retrieved through the umbilical port. Abdominal cavity was copiously irrigated, and secured hemostasis. All ports were removed under direct laparoscopic view. Wounds were closed in the following manner; umbilical wound has fascia reapproximated using interrupted 0 Vicryl sutures. Skin wounds were closed using subcuticular 4-0 Vicryl sutures followed by Steri-Strips and sterile dressings. Wounds were infiltrated 0.5% Marcaine at completion. Sponge, needle, and instrument counts were reported to be correct. Patient tolerated the procedure well and emerged from anesthesia stable condition. EBL minimal
--- NOTE | 2023-03-10 09:20 | PM.DS ---
DS: Providers Provider Date of Service: 03/03/23 Date of admission: 03/03/23 13:39 Date of discharge: 03/03/23 Primary care physician: [facility] Attending physician on admission: Simon Paula Attending physician on discharge: Simon Paula DS: Diagnosis Discharge Diagnosis (1) Acute calculous cholecystitis: Status: Acute DS: Summary Hospital Course Hospital Course: HPI AT ADMISSION: Destinee Alexander is a 32 year old female who presented to the ED with complaints of abdominal pain. She reports she developed some mild central abdominal pain on . This was associated with bloating and constipation. She was recently diagnosed with IBS and she attributed the pain to that. The pain became different yesterday morning and migrated to the epigastric region and she vomited multiple times last night. She was unable to tolerate even water prompting her to seek care in the ED. Work up included CT scan/ABD US which showed gallstones, gallbladder wall thickening and stone/sludge in the gallbladder neck. She had a leukocytosis of 12.9. LFTs WNL. She reports continued pain this morning but somewhat improved following pain meds. HOSPITAL COURSE: She was admitted to the surgical service for further treatment of the acute cholecystitis. It was recommended to proceed with laparoscopic cholecystectomy possible open. She was added onto the OR schedule. On 03/03/23, a laparoscopic cholecystectomy was performed by Dr. Paula without complication. Operative findings showed a large, thickened, phlegmonous inflamed gallbladder that was markedly intrahepatic. The patient tolerated the procedure well. She was doing well in recovery with good pain control and tolerating a diet. She felt ready for discharge. She was discharged to home in stable condition on 03/03/23. She is to follow up in the office in 1 week. Status at Discharge Functional status at discharge: independent ambulation Time Spent with Patient Time attestation: Total time managing care of this patient today ____ minutes. Discharge coordination time: Less than 30 minutes Quality: Safe Use of Opioids Does Pt have an Active Cancer Diagnosis on the Problem List?: No Quality: Stroke Does the patient have a stroke diagnosis?: No Physical Exam Vital Signs: Vital Signs: Last Vital Signs Temp 97 F 03/03/23 16:07 Pulse 86 03/03/23 16:07 Resp 14 03/03/23 16:07 BP 121/83 03/03/23 16:07 Pulse Ox 96 03/03/23 16:07 O2 Del Method Room Air 03/03/23 16:07 O2 Flow Rate 2 03/03/23 14:34 BMI result Body Mass Index 37.6 Const: General: comfortable, no acute distress and alert Orientation/consciousness: patient oriented x3 Resp: Effort & Inspection: normal respiratory effort GI: Inspection: No distended and Yes incision (clean, intact) Palpation (GI): Soft to palpation, Tenderness to palpation present (GI) (mild incisional), no guarding and not rigid Percussion: Yes normal to percussion Skin: General skin exam: no rashes or lesions noted Neuro: General: patient oriented x3 and moves all extremities DS: Data Data Completed and Pending Completed studies during hospitalization [Text1]: Pending at discharge 03/03/23 13:18 Surgical [PTH] Routine Discharge Plan Discharge Anticipated Discharge Date/Time: 03/03/23 13:45 Patient Disposition: Home, Self-Care Referrals: [facility] [Primary Care Provider] - 1 Week Simon Paula MD [Physician] - 1 Week Discharge Medications: New docusate sodium [Colace] 100 mg capsule 100 mg PO BID PRN (Reason: constipation) Qty: 30 0RF oxycodone-acetaminophen [Percocet] 5-325 mg tablet 1 tab PO Q4H PRN (Reason: pain (scale score 7-10)) Qty: 20 0RF Rx Instructions: Partial Fill upon patient request. Continued omeprazole 20 mg capsule,delayed release(DR/EC) 20 mg PO DAILY@0630 Discharge Orders: Discharge Order (Routine); Ordered 03/03/23 Ordered By: Anali Betancourt Diet: Low fat, low cholesterol Activity on Discharge: No heavy lifting Stand Alone Forms: Patient Portal Discharge page Activity Restrictions/Additional Instructions: Apply an ice pack for short intervals (20 minutes on, followed by at least 20 minutes off) for the first 2 days. Do not apply heat. Do not use creams, lotions, or topical antibiotics. These can cause infection or allergic reaction. Ok to shower 48 hours after your surgery. Remove dressings in 2 days and replace as needed. You have steri strips (small white cloth strips) covering your incision- these will fall off ~1 week. Follow up in office with Dr. Paula in 1 week. ([phone]) No heavy lifting (>10lbs) or strenuous activity! Call Your Doctor If: -Your temperature exceeds 101.5? F -You experience excessive pain or swelling -You have an unexpected reaction to medication -You have excessive bleeding -You experience continued vomiting/nausea -Your incision begins to separate -Your incision shows signs of infection such as increased redness, swelling, excessive pain, drainage (light blood or clear fluid is normal) or heat Care Plan Goals: Return to baseline health and resume normal activities following recovery period. Health Concerns: acute cholecystitis Plan of Treatment: s/p laparoscopic cholecystectomy Pain control; ice pack to incisions for 2 days Follow up in office in 1 week Assessment: Doing well post op Patient Instructions: Laparoscopic Cholecystectomy (DC) Discharge Date/Time: 03/03/23 16:43
== END 2023-03-03 16:43 | disposition home or self-care (01) ==
LOC: HO.ED 03-03 13:41 → HO.EDOVER 03-03 13:44 → HO.S3 03-03 14:44
PROVIDERS: Surgery; Admitting Provider Physician Assistant Surgical; Emergency Provider Emergency Medicine Emergency Medical Services; Visit Provider Physician Assistant Surgical
PROC: 0FT44ZZ Resection of Gallbladder, Percutaneous Endoscopic Approach (ICD-10-PCS; CPT 47562; principal; 2023-03-03 12:30)
DX: K80.00 Calculus of gallbladder with acute cholecystitis without obstruction (principal); R10.9 Unspecified abdominal pain
CPT/HCPCS: 47562; 36415; 74177; 76705; 80053; 81001; 81025; 83605; 85025; 87040; 88304; 96361; 96365; 96375; 96376; 99221; 99285; J0131; J0690; J0696; J1170; J2250; J2270; J2405; J3010; Q9967

== ENCOUNTER → 2023-03-12 13:50 | Outpatient (BNVA) | payer OTHER, SELFPAY | PROVIDERS: Visit Provider Surgery ==

== ENCOUNTER 2024-08-13 12:11 | Outpatient (REF) | payer OTHER, SELFPAY ==
[2024-08-13 13:11] LABS: MANUAL DIFF FLAG NO
[2024-08-13 13:20] LABS: Basophils Absolute Auto 0.1 X10*3/uL (0.0-0.2); Basophils Percent Auto 1.2 % (0-2); Eosinophils Absolute Auto 0.4 X10*3/uL (0.0-0.4); Eosinophils Percent Auto 6.8 % (0-4); Hematocrit 39.4 % (37.0-47.0); Hemoglobin 13.7 g/dl (12.0-16.0); Imm Gran Abs Auto 0.01 X10*3/uL (0.00-0.03); Imm Gran Pct Auto 0.2 % (0.0-0.4); Lymphocytes Absolute Auto 2.2 X10*3/uL (1.2-4.9); Lymphocytes Percent Auto 36.7 % (20-40); Mean Corpuscular HGB Conc 34.8 g/dl (31.0-35.0); Mean Corpuscular Hemoglobin 30.2 pg (27.0-33.0); Mean Corpuscular Volume 86.8 fL (80.0-98.0); Mean Platelet Volume 10.4 fL (9.4-12.3); Monocytes Absolute Auto 0.4 X10*3/uL (0.1-1.2); Monocytes Percent Auto 6.1 % (2-11); Neutrophils Absolute Auto 2.9 x10*3/uL (2.0-8.3); Platelet Count 328 X10*3/uL (160-400); Red Blood Count 4.54 X10*6/uL (4.20-5.50); Red Cell Distribution Width 13.2 % (11.0-16.0); White Blood Count 5.9 X10*3/uL (4.8-10.8)
[2024-08-13 13:35] LABS: Estimated Average Glucose 108 mg/dL; Hemoglobin A1C 124.7733 umol/L; Hemoglobin A1c % 5.4 % (<6.0); Total Hemoglobin (HGBA1C) 3486.9981 umol/L
[2024-08-13 13:42] LABS: Alanine Aminotransferase 27 U/L (0-31); Albumin Level 4.4 g/dL (3.5-5.0); Alkaline Phosphatase 98 U/L (39-117); Anion Gap 12 (12-20); Aspartate Amino Transferase 27 U/L (5-31); Bilirubin Total 0.3 mg/dL (0.0-1.0); Blood Urea Nitrogen 11 mg/dL (9-16); Calcium 9.8 mg/dL (8.4-10.2); Carbon Dioxide 26 mmol/L (22-29); Chloride 105 mmol/L (96-108); Cholesterol 252 mg/dL (<200); Estimated Glomerular Filt Rate > 60; Glucose Random 100 mg/dL (60-115); HDL Cholesterol 41 mg/dL (>40); LDL Cholesterol Calculated 175 mg/dL (<100); Sodium 139 mmol/L (135-145); Total Protein 7.9 g/dL (6.5-8.0); Triglycerides 182 mg/dL (<150)
[2024-08-13 13:58] LABS: HCG Quantitative < 2 mIU/mL
[2024-08-14 14:43] LABS: CT PCR NOT DETECTED (Not Detect.); NG PCR NOT DETECTED (Not Detect.)
[2024-08-16 08:23] LABS: HBS Num1 658.75 mIU/mL (0-7.99); HBsAGNum1 0.63 S/CO (0.00-0.99); HIV AB/AG Nonreactive (Nonreactive); HIV Num 1 0.06 S/CO (0.00-0.99); Hepatitis B Core Antibody Nonreactive (Nonreactive); Hepatitis B Surface Antigen Negative (Negative); ~HepC Num1 0.16 S/CO (0.00-0.79); ~Hepatitis B Surface Antibody REACTIVE (Nonreactive); ~Hepatitis C Antibody Nonreactive (Nonreactive)
[2024-08-16 15:13] LABS: Anti Nuclear Antibody Screen NEGATIVE (NEGATIVE)
[2024-08-17 17:04] LABS: Follicle Stimulating Hormone 1.7 mIU/mL; Prolactin Undiluted 177.3 ng/mL
[2024-08-24 01:30] LABS: Estradiol Ultra Sensitive 7 pg/mL
== END 2024-08-13 12:12 | disposition home or self-care (01) ==
LOC: HO.HHCL 12:11
PROVIDERS: Nurse Practitioner Family; Visit Provider Nurse Practitioner Family
DX: Z00.00 Encounter for general adult medical examination without abnormal findings (principal); N91.1 Secondary amenorrhea; R53.82 Chronic fatigue, unspecified; E66.811 Obesity, class 1; Z13.1 Encounter for screening for diabetes mellitus
CPT/HCPCS: 36415; 80053; 80061; 82670; 83001; 83036; 84146; 84443; 84702; 85025; 86038; 86704; 86706; 86803; 87340; 87389; 87491; 87591

== ENCOUNTER 2024-08-20 14:37 | Outpatient (REF) | payer OTHER, SELFPAY | END 2024-08-20 14:38 | disposition home or self-care (01) | LOC: HO.US 14:37 | PROVIDERS: PCP Nurse Practitioner Family; Visit Provider Nurse Practitioner Family | DX: N91.1 Secondary amenorrhea (principal) | CPT/HCPCS: 76830; 76856 ==

== ENCOUNTER 2024-08-26 11:30 | Outpatient (REF) | payer OTHER, SELFPAY ==
--- NOTE | ~2024-08-26 | MR_ITS ---
EXAMINATION: MR BRAIN WITHOUT AND WITH CONTRAST CLINICAL INFORMATION: Secondary abdomen area. Prolactin level 177.3 COMPARISON: None available. TECHNIQUE: Multiplanar, multisequence MRI of the brain was obtained before and after the intravenous administration of 4.5 mL Gadavist. FINDINGS: The sella is expanded and protrudes into the left sphenoid sinus. There is a 1.1 x 1.4 x 1.4 cm left paracentral hypoenhancing mass occupying almost the entire pituitary gland. Trace rightward deviation of the infundibulum. The suprasellar cistern is normal. The optic chiasm and prechiasmatic optic nerves are normal. The cavernous sinuses are normal. No abnormal intracranial enhancement. No acute intracranial hemorrhage or infarct. No edema, midline shift or hydrocephalus. No acute extra-axial fluid collections. The osseous structures are unremarkable. The pineal gland and remaining midline structures are unremarkable. No orbital pathology. The paranasal sinuses and mastoid air cells are clear. 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 -No acute intracranial abnormality. Electronically signed by: Carrillo Celeste MD 08/26/2024 01:18 PM [facility] [place]
[2024-08-26] MEDS: gadobutroL 7.5 ML VIAL IVPUSH (12:57)
== END 2024-08-26 11:31 | disposition home or self-care (01) ==
LOC: HO.MRI 11:30
PROVIDERS: PCP Nurse Practitioner Family; Visit Provider Nurse Practitioner Family
DX: E22.1 Hyperprolactinemia (principal)
CPT/HCPCS: 70553; A9585

== ENCOUNTER 2024-09-21 09:51 | Outpatient (AMB) | payer OTHER, SELFPAY ==
--- NOTE | 2024-09-21 10:15 | MHC.OFFVIS ---
Vital Signs 09/21/24 10:17 Height 5 ft Weight 197 lb 5.019 oz BMI 38.5 BP 100/68 Blood Pressure Location Rt brachial Position Sitting Pulse 101 H Pulse Source Pulse Oximeter Intake Visit Reasons: Hyperprolactinemia Intake Note: New patient present today for Hyperprolactinemia. Manager Of Sustainability Required: No Accompanied by: Self / Same As Patient Allergies No Known Allergies Allergy (Verified 09/21/24 10:18) Medication List - Last Reconciled 09/21/24 by Oanh Meza MD cabergoline 0.25 mg PO .1xw HPI Comments Details: 34-year-old female coming in today for initial evaluation of hyperprolactinemia and pituitary microadenoma. Labs from 08/13/2024 showed prolactin level elevated at 177.3. Estradiol level of 7 which is low, with a low normal FSH of 1.7. Normal kidney function. TSH normal at 0.6. Lab work was done as she had not had a menstrual cycle for some time . Pituitary MRI from 08/26/2024 showed a pituitary macroadenoma with a 1.4 cm hypoenhancing mass occupying almost the entire pituitary gland. Trace rightward deviation of the infundibulum. Optic chiasm is normal. Cavernous sinus normal. Started on cabergoline 0.25 mg every Friday started 09/03/24. By PCP. She is tolerating it well without any nausea or vomiting. Vision changes: none Headache: once a week or in 2 weeks, not bothered by it Nipple discharge: none , no breast soreness [employer] House[employer] history: Menarche: 9 years of age LMP:2020, 3 years Pregnancies : no In a relationship with cis male but not sexually active currently used to use condoms Was on OCP for seven years stopped in , her periods used to be light on that Change in sense of smell: no Change in ring size: feels increased due to gained weight Change in shoe size: none Reports some fatigue, hot flushes on cheeks. Reports hair loss . Reports occasional loose stools. Patient currently denies heat or cold intolerance, palpitation, mood changes, changes in appearance of eyes or vision changes, tremors, increased diaphoresis or dry skin. ? Easy bruising: yes Proximal muscle weakness: none No DM, HTN Left wrist 2005 while playing basket ball Nausea: none Vomiting:none Lightheadedness: none Weight: GAined 50 lbs in the past 5 years No history of heart disease , valvulopathy Works in HR at [employer] Lives with partner Physical exam General: sitting comfortably in no acute distress HEENT: normocephalic/atraumatic, EOM intact, visual oakley grossly intact Neck: supple, symmetrical, no thyromegaly Cardiac: normal heart sounds Pulm: normal breath sounds B/L, no added breath sounds Abd: not distended, no tenderness Extremities: no edema, no signs of myxedema Neuro: AAO x3, Speech: normal, no facial droop, moving all 4 extremities Laboratory Tests 03/02/23 08/13/24 22:05 12:18 Creatinine 0.82 Estimated GFR > 60 TSH 0.60 Estradiol Ultra LCMSMS 7 FSH 1.7 Prolactin Undiluted 177.3 H Beta HCG, Quant < 2 Urine Test NEGATIVE MR BRAIN WITHOUT AND WITH CONTRAST 08/26/24 CLINICAL INFORMATION: Secondary abdomen area. Prolactin level 177.3 COMPARISON: None available. TECHNIQUE: Multiplanar, multisequence MRI of the brain was obtained before and after the intravenous administration of 4.5 mL Gadavist. FINDINGS: The sella is expanded and protrudes into the left sphenoid sinus. There is a 1.1 x 1.4 x 1.4 cm left paracentral hypoenhancing mass occupying almost the entire pituitary gland. Trace rightward deviation of the infundibulum. The suprasellar cistern is normal. The optic chiasm and prechiasmatic optic nerves are normal. The cavernous sinuses are normal. No abnormal intracranial enhancement. No acute intracranial hemorrhage or infarct. No edema, midline shift or hydrocephalus. No acute extra-axial fluid collections. The osseous structures are unremarkable. The pineal gland and remaining midline structures are unremarkable. No orbital pathology. The paranasal sinuses and mastoid air cells are clear. 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 -No acute intracranial abnormality. Electronically signed by: Carrillo Celeste MD 08/26/2024 01:18 PM [facility] Medical History (Updated 09/21/24 @ 10:51 by Oanh Meza MD) Pituitary macroadenoma Hyperprolactinemia Environmental allergies IBS (irritable bowel syndrome) Surgical History History of laparoscopic cholecystectomy (~03/03/23) Family History Mother Non Hodgkin's lymphoma Father No known health problems Social History Alcohol intake: never Patient Tobacco Use Status: Never used Tobacco Physical Exam Vital Signs: BMI result Body Mass Index 38.5 Assessment & Plan Assessment & Plan (1) Hyperprolactinemia: Code(s): E22.1 - Hyperprolactinemia Category: Medical Plan: 34-year-old female here today for initial evaluation of hyperprolactinemia and pituitary microadenoma. Labs from 08/13/2024 showed prolactin level elevated at 177.3. Estradiol level of 7 which is low, with a low normal FSH of 1.7. Normal kidney function. TSH normal at 0.6. Lab work was done as she had not had a menstrual cycle for some time . Pituitary MRI from 08/26/2024 showed a pituitary macroadenoma with a 1.4 cm hypoenhancing mass occupying almost the entire pituitary gland. Trace rightward deviation of the infundibulum. Optic chiasm is normal. Cavernous sinus normal. Given this is a macroadenoma, we will refer to Ophthalmology for visual field testing. Grossly visual oakley are intact today. In terms of functioning, elevated prolactin level greater than 100 consistent with the size of this adenoma. 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 She does not have any bothersome nipple discharge, she is not trying to get however given no menstrual cycles, we agree with treatment with Cabergoline. Usually this starting doses 0.25 mg twice a week, patient has only been prescribed this to take once a week. For now I will complete testing with a full pituitary panel for evaluation for both hypo secretion and hyper secretion as well as a 24 hour urine cortisol level and then plan to increase her dose of Cabergoline to 0. 25 mg twice a week. We should keep in mind the testing is being done while patient is already on prolactin but I do not think there is much utility in stopping the medication to do a baseline set of blood work. Prolactin levels are repeated in about 6-8 weeks to see if they are downtrending. We will plan to repeat her MRI in 6 months from initiation of treatment which would be in February 2025. Plan: -continue cabergoline 0.25 mg once a week with plan to increase to 0.25 mg twice a week once testing is complete -obtain pituitary panel as well as 24 hour urine cortisol and creatinine levels -plan to repeat labs prior to next appointment in 8 with a prolactin level as well as estradiol and FSH and LH -ophthalmology referral placed for evaluation of visual oakley -MRI pituitary would be repeated February 2025 -follow up in 8 weeks Patient was counseled today regarding side effects of cabergoline including nausea, orthostatic hypotension. Patient does take the medication in the evening with a meal to avoid these. Also counseled regarding side effects of impulse control disorder and cardiac valvulopathy. Given low dosage we will not obtain echocardiogram in her. Normal kidney function noted prior to starting medication. Patient was also counseled regarding gnosticism of menses and increased chance of and to use reliable contraceptive method if she is trying to prevent . Was also counseled to inform us if she has a positive test. Although available evidence suggests cabergoline use early in does not cause harm to the fetus, it is recommended that dopamine agonist therapy be discontinued once is discovered (ES [Melcherelle 2010]; TERA [Amparo 2020]). (2) Pituitary macroadenoma: Code(s): D35.2 - Benign neoplasm of pituitary gland Category: Medical Plan: See above Plan I spent 60 minutes in reviewing the record, seeing the patient and documenting in the medical record. Orders: Orders Cortisol, Free 24Hr Urine Today D35.2 - Benign neoplasm of pituitary gland, E22.1 - Hyperprolactinemia Creatinine, 24 Hr Group Today D35.2 - Benign neoplasm of pituitary gland, E22.1 - Hyperprolactinemia Cortisol Random Today D35.2 - Benign neoplasm of pituitary gland, E22.1 - Hyperprolactinemia DHEA Sulfate Today D35.2 - Benign neoplasm of pituitary gland, E22.1 - Hyperprolactinemia Prolactin Today D35.2 - Benign neoplasm of pituitary gland, E22.1 - Hyperprolactinemia Prolactin Dilution Study Today D35.2 - Benign neoplasm of pituitary gland, E22.1 - Hyperprolactinemia Follicle Stimulating Hormone Today D35.2 - Benign neoplasm of pituitary gland, E22.1 - Hyperprolactinemia Basic Metabolic Panel Today D35.2 - Benign neoplasm of pituitary gland, E22.1 - Hyperprolactinemia Adrenocorticotropic Hormone Today D35.2 - Benign neoplasm of pituitary gland, E22.1 - Hyperprolactinemia Estradiol Ultra Sensitive Today D35.2 - Benign neoplasm of pituitary gland, E22.1 - Hyperprolactinemia Free T4 (Free Thyroxine) Today D35.2 - Benign neoplasm of pituitary gland, E22.1 - Hyperprolactinemia Lutenizing Hormone Today D35.2 - Benign neoplasm of pituitary gland, E22.1 - Hyperprolactinemia Human Growth Hormone Today D35.2 - Benign neoplasm of pituitary gland, E22.1 - Hyperprolactinemia IGF-1 (Somatomedin C) Today D35.2 - Benign neoplasm of pituitary gland, E22.1 - Hyperprolactinemia Thyroid Stimulating Hormone Today D35.2 - Benign neoplasm of pituitary gland, E22.1 - Hyperprolactinemia Testosterone, Free/Total Today D35.2 - Benign neoplasm of pituitary gland, E22.1 - Hyperprolactinemia Referrals Ophthalmology Referral D35.2 - Benign neoplasm of pituitary gland, E22.1 - Hyperprolactinemia Patient Instructions: Do fasting 8 AM blood work Do 24 hour urine collection 24 hr urine collection instructions You have been asked to collect your urine for 24 hours to assess for cortisol excretion. You must choose a 24 hour period of time when you will be home. The morning of the first day, DISCARD the FIRST morning void and then note the time. You will collect every single void from then on for 24 hours. For example, if you wake up at 6am and urinate, flush down that void. You will then collect every drop of urine all day and all night through 6am the following day. You will urinate one last time at 6am for the collection. The jug of urine must be kept in the refrigerator until you bring it to the lab. I will reach out with results See eye doctor Coding Level of Care Code New Pt Level 4 (16955) Complex EM visit Add On G2211 Diagnoses Hyperprolactinemia E22.1 Pituitary macroadenoma D35.2 Time Spent (min) 60
[2024-09-21 10:17] VITALS: BP 100/68; PULSE 101; BMI 38.5
== END 2024-09-21 11:12 | disposition home or self-care (01) ==
PROVIDERS: PCP Nurse Practitioner Family; Visit Provider Student in an Organized Health Care Education/Training Program
DX: E22.1 Hyperprolactinemia (principal); D35.2 Benign neoplasm of pituitary gland
CPT/HCPCS: 99204

== ENCOUNTER 2024-09-24 09:19 | Outpatient (REF) | payer OTHER, SELFPAY ==
[2024-09-24 10:09] LABS: Anion Gap 9 (12-20); Blood Urea Nitrogen 15 mg/dL (9-16); Carbon Dioxide 22 mmol/L (22-29); Chloride 110 mmol/L (96-108); Estimated Glomerular Filt Rate > 60; Glucose Random 100 mg/dL (60-115); Potassium 4.1 mmol/L (3.3-5.1); Sodium 137 mmol/L (135-145)
[2024-09-24 10:24] LABS: Creatinine, mg/dL 71.14
[2024-09-24 10:25] LABS: Free T4 (Free Thyroxine) 1.04 ng/dL (0.71-1.85); Thyroid Stimulating Hormone 1.01 uIU/mL (0.32-4.0)
[2024-09-24 10:50] LABS: Creatinine, 24Hr Urine 1.1 G/Day (1.0-2.0); Total Volume 24 Hour Urine 1500 mL
[2024-09-25 22:34] LABS: DHEA Sulfate 92 mcg/dL (19-237)
[2024-09-29 21:58] LABS: Cortisol Free, 24 Hr Urine 17.3 mcg/24 h (4.0-50.0); Creatinine, 24 Hr Urine 1.12 g/24 h (0.50-2.15); Total Volume, 24 Hr Urine 1500 mL
[2024-09-30 15:34] LABS: IGF-1 (Somatomedin C) 151 ng/mL (53-331); IGF-1 Z Score (Female) 0.1 SD (-2.0 - +2.0)
[2024-10-01 05:24] LABS: Adrenocorticotropic Hormone 15 pg/mL (6-50)
[2024-10-01 18:13] LABS: Testosterone, Free 1.9 pg/mL (0.1-6.4); Testosterone, Total 13 ng/dL (2-45)
[2024-10-02 02:24] LABS: Estradiol Ultra Sensitive 8 pg/mL
[2024-10-05 14:48] LABS: Follicle Stimulating Hormone 5.3 mIU/mL; Lutenizing Hormone 0.6 mIU/mL
== END 2024-09-24 09:20 | disposition home or self-care (01) ==
LOC: HO.LAB 09:19
PROVIDERS: PCP Nurse Practitioner Family; Visit Provider Student in an Organized Health Care Education/Training Program
DX: E22.1 Hyperprolactinemia (principal); D35.2 Benign neoplasm of pituitary gland
CPT/HCPCS: 36415; 80048; 82024; 82530; 82533; 82570; 82627; 82670; 83001; 83002; 83003; 84146; 84305; 84402; 84403; 84439; 84443

== ENCOUNTER 2024-11-03 09:10 | Outpatient (REF) | payer OTHER, SELFPAY ==
--- OUTSIDE RECORDS SUMMARY | 2024-11-03 10:15 | XMS_ITS | Clinical Summary ---
Author Organization [employer] Address [address] [facility] [address] [place] [address] Care Team Providers Care Associate Faculty Name Role Phone Aurea Johnson CARTON REPAIRER Primary Care Provider [phone] Allergies No known active allergies Medications omeprazole OTC (PriLOSEC OTC) 20 MG EC tablet Take 1 tablet (20 mg) by mouth before breakfast. Do not crush, chew, or split. 30 tablet 11 02/19/2023 Active cabergoline (Dostinex) 0.5 MG tablet Take 0.5 tablets (0.25 mg) by mouth 1 (one) time per week. 2 tablet 2 09/03/2024 Active Active Problems Problem Noted Date Diagnosed Date Exercise counseling 10/01/2024 Assessment & Plan (10/03/2024 3:18 PM EST): At least 150 minutes of moderate-intensity physical activity per week, or an equivalent combination of moderate- and vigorous-intensity activity Dietary counseling 10/01/2024 Assessment & Plan (10/03/2024 3:19 PM EST): Eat 3 meals a day, especially breakfast Eat healthy and focus on healthyfood choices daily fruits, vegetables, grains, low fat milk, low carbohydrate and fat Maintain healthy weight as this will lower your risk for many health problems. Eat different types of protein foods in your diet. This can include seafood, lean meats, poultry, beans, peas, lentils, nuts, seeds, soy products, and eggs. Limit foods and beverages higher in added sugars, saturated fat, and sodium Food allergy 10/01/2024 Prolactinoma 09/06/2024 Assessment & Plan (10/03/2024 3:11 PM EST): Continue to take medication as prescribed Keep all medical appointments Inform your provider if having challenges in getting an healthcare or medical appointment Assessment & Plan (09/09/2024 4:09 PM EST): Plan Patient education on prolactinoma Prolactin, Undiluted ng/mL 177.3 Abnormal Start cabergoline 0.5 mg weekly Patient teaching possible side effects of medication Keep appointment with education associate Recheck prolactin level trend in 4 weeks Follow up in 4 weeks Panic 08/24/2024 Health care maintenance 08/18/2024 Assessment & Plan (08/18/2024 10:13 PM EST): Obese Secondary amenorrhea Elevated prolactin HCG negative Plan Transvaginal and Pelvic US MRI brain Referral to toaster operator and neurosurgery Diet and exercise intake counselor STI screening Follow up in 4 weeks to review lab and imaging To schedule pap smear at next visit Hyperprolactinemia 08/18/2024 Assessment & Plan (08/18/2024 2:00 PM EST): Prolactin 177.3 ng/mL 08/14/2024 D/dx prolactinoma, PCOS Plan Referral to neurosurgeon Referral book sorter MRI brain Hx of cholecystectomy 08/18/2024 Secondary amenorrhea 08/13/2024 Assessment & Plan (08/18/2024 1:56 PM EST): No period for over 2 years HCG negative Plan Transvaginal US Pelvic US Chronic fatigue 08/13/2024 Obesity (BMI 30.0-34.9) 08/13/2024 Assessment & Plan (10/03/2024 3:13 PM EST): Discuss weight loss medication with patient, agreed to get more information and discuss at next visit Dietary and exercise counseling Encounters Date Type Department Care Team Description 10/01/2024 1:45 PM EST Office Visit [facility] [address] [place] [phone] Aurea Johnson FNP Food allergy (Primary Dx); Prolactinoma (CMS/HCC); Dietary counseling; Exercise counseling; Obesity (BMI 30.0-34.9) 09/21/[address] [address] Marianela Atkins MA Chart Prep 09/14/[address] [address] Sánchez Ely, LIZ 09/07/[address] [address] Montserrat Harrington, LIZ 09/03/2024 1:45 PM EST Office Visit [address] [address] Aurea Johnson FNP Prolactinoma ([facility]/HCC) (Primary Dx) 09/03/2024 Travel 08/31/[address] [address] Aurea Johnson FNP patient survey 08/31/[address] [address] Marianela Atkins MA Chart Prep 08/30/[address] [address] Sharon Bond NP 08/25/2024 Telephone [facility] [address] [place] [phone] Aurea Johnson FNP 08/18/[address] [address] Aurea Johnson FNP Call Back Request 08/13/2024 10:30 AM EST Office Visit [address] [address] Aurea Johnson FNP Secondary amenorrhea (Primary Dx); Health care maintenance; Hyperprolactinemia (CMS/HCC) 08/13/2024 Orders Only [address] [address] Sharon Bond NP Secondary amenorrhea (Primary Dx); Chronic fatigue; Obesity (BMI 30.0-34.9); Healthcare maintenance 08/12/[address] [facility] [address] [place] [address] Marianela Atkins MA Chart Prep from Last 3 Months Immunizations Name Administration Dates Next Due HPV, Quadrivalent 06/10/2013 Hep B, Unspecified 09/05/2016,06/10/2013 Influenza Injectable Quadriv alant Preservative Free IIV4 MDCK 07/10/2022 Influenza injectable quadrivalent preservative f ree 07/02/2021 MMR 09/05/2016,06/10/2013 Tdap 07/02/2021 Family History Medical History Relation Name Comments non hodgkin Mother Diabetes Paternal Grandmother Relation Name Status Comments Mother Paternal Grandmother Social History Tobacco Use Types Packs/Day Years Used Date Smoking Tobacco: Never Passive Smoke Exposure: Never Smokeless Tobacco: Never Tobacco Cessation:Counseling Given: Not Answered Depression Answer Date Recorded Patient Health Questionnaire-9 Score 7 08/13/2024 Patient Health Questionnaire-9 Score 7 08/13/2024 Last PHQ-9: Questionnaire Data Not on file 1 10/14/2023 Housing Stability Answer Date Recorded What is your housing situation today? I have arvind alegre 07/22/[address] you li ve. Do you have problems with any of the following? None of the above 07/22/2024 Food Insecurity Answer Date Recorded Within the past 12 months, y ou worried that your food would run out before you got money to buy more: Never True 07/22/2024 Within the past 12 months,th e food you bought just didn't last and you didn't have enough money to get more: Never True Transportation Answer Date Recorded In the past 12 months, has l ack of transportation kept you from medical appts, meetings, work or from getting things needed for daily living? No 07/22/2024 Utilities Answer Date Recorded In the past 12 months, has t he electric, gas, oil or water company threatened to shut off services in your home? No 07/22/2024 Depression Answer Date Recorded Patient Health Questionnaire-2 Score 2 08/13/2024 Internet Access Answer Date Recorded Internet Access Q1 Yes 07/22/2024 Internet Access Q2 Not on file 07/22/2024 Comments Unknown Sex and Gender Information Value Date Recorded Sex Assigned at Female 07/08/2022 10:38 AM EDT Legal Sex Female 10:38 AM EDT Gender Identity Female 07/08/2022 10:38 AM EDT Sexual Orientation Don't know 07/08/2022 10 :38 AM EDT Last Filed Vital Signs Vital Sign Reading Time Taken Comments Blood Pressure 120/71 10/01/2024 1:50 PM EST Pulse 78 10/01/2024 1:50 PM EST Temperature 36.7 ??C (98 ??F) 10/01/2024 1:50 PM EST Respiratory Rate 16 10/01/2024 1:50 PM EST Oxygen Saturation 97% 10/01/2024 1:50 PM EST Inhaled Oxygen Concentration - - Weight 90.9 kg (200 lb 6.4 oz) 10/01/2024 1:50 P M EST Height 152.4 cm (5') 10/01/2024 1:50 PM EST Body Mass Index 39.14 10/01/2024 1:50 PM EST Plan of Treatment Upcoming Encounters Date Type Department Care Team (Late st Contact Info) Description 11/26/2024 1:30 PM EDT Office Visit [facility] [address] [place], [place] [phone] Aurea Johnson FNP [address] [place], [place] [phone] Health Maintenance Due Date Last Done Comments Family Planning (PISQ) 2003 Pap Smear 2009 HPV Vaccines (2 - 3-dose series) 07/08/2013 06/10/2013 Hepatitis B Vaccines (3 of 3 - 19+ 3-dose series) 10/31/2016 09/05/2016, 06/10/2013 Cervical Cancer Screening 2018 HPV/Cotest 2018 COVID-19 Vaccine (3 - 2023-2 5 season) 2024 01/24/2021, 01/03/2021 Influenza Vaccine (#1) 2024 , 07/02/2021 SDOH Screening 07/22/2025 07/22/2024 Depression Screening 08/13/2025 08/13/2024, 08/13/2024 Alcohol/Substance Use Screening 10/01/2025 10/01/2024 Tobacco Screening 10/01/2025 10/01/2024 DTaP/Tdap/Td Vaccines (2 - T d or Tdap) 07/02/2031 07/02/2021 Zoster Vaccines (1 of 2) 2038 RSV Patients and Patients Aged 60 years or older (1 - 1-dose 75+ series) 2063 HIV Screening Completed 08/13/2024, 04/07/2021 Hepatitis C Screening Completed 08/13/2024 , 04/07/2021 HIB Vaccines Aged Out No longer eligi ble based on patient's age to complete this topic Hepatitis A Vaccines Aged Out No long er eligible based on patient's age to complete this topic IPV Vaccines Aged Out No longer eligi ble based on patient's age to complete this topic Meningococcal Vaccine Aged Out No randy gregorio eligible based on patient's age to complete this topic Pneumococcal Vaccine: Pediatrics (0 to 5 Years) and At-Risk Patients (6 to 49) Years) Aged Out No longer eligible b ased on patient's age to complete this topic RSV under 20 months Aged Out No longe r eligible based on patient's age to complete this topic Rotavirus Vaccines Aged Out No longer eligible based on patient's age to complete this topic Procedures Procedure Name Priority Date/Time Associated Diagnosis Comments PROLACTIN Routine 09/24/2024 9:44 AM EST Secondary amenorrhea PROLACTIN, DILUTION STUDY Routine 09/24/2024 9:44 AM EST Secondary amenorrhea GROWTH HORMONE (GH) Routine 09/24/2024 9 :44 AM EST Secondary amenorrhea LH Routine 09/24/2024 9:44 AM EST Secondary amenorrhea FSH Routine 09/24/2024 9:44 AM EST Secondary amenorrhea ESTRADIOL Routine 09/24/2024 9:44 AM EST Secondary amenorrhea TESTOSTERONE, FREE (DIALYSIS) AND TOTAL,MS Routine 09/24/2024 9:44 AM EST Secondary amenorrhea ACTH, PLASMA Routine 09/24/2024 9:44 AM EST Secondary amenorrhea IGF 1, LC/MS Routine 09/24/2024 9:44 AM EST Secondary amenorrhea DHEA SULFATE Routine 09/24/2024 9:44 AM EST Secondary amenorrhea CORTISOL RANDOM Routine 09/24/2024 9:44 AM EST Secondary amenorrhea TSH Routine 09/24/2024 9:44 AM EST Secondary amenorrhea T4, FREE Routine 09/24/2024 9:44 AM EST Secondary amenorrhea BASIC METABOLIC PANEL Routine 09/24/2024 9:44 AM EST Secondary amenorrhea CORTISOL FREE, URINE, 24 HOUR Routine 09/24/2024 9:22 AM EST Secondary amenorrhea CREATININE, 24 HR GROUP Routine 09/24/2024 8:30 AM EST Secondary amenorrhea MR BRAIN W AND WO CONTRAST STAT 08/26/2024 11:29 AM EST Hyperprolactinemia (CMS/HCC) US PELVIS TRANSVAGINAL Routine 2:56 PM EST Secondary amenorrhea POCT URINALYSIS DIPSTICK Routine 08/13/2024 12:36 PM EST Health care maintenance HEPATITIS B SURFACE ANTIGEN, EIA Routine 08/13/2024 12:18 PM EST Healthcare maintenance HEPATITIS B CORE AB TOTAL Routine 08/13/2024 12:18 PM EST Healthcare maintenance HEPATITIS B SURFACE ANTIBODY, QUALITATIVE Routine 08/13/2024 12:18 PM EST Healthcare maintenance LIPID PANEL, STANDARD Routine 08/13/2024 12:18 PM EST Healthcare maintenance COMPREHENSIVE METABOLIC PANEL Routine 08/13/2024 12:18 PM EST Chronic fatigue Obesity (BMI 30.0-34.9) HEMOGLOBIN A1C Routine 08/13/2024 12:18 PM EST Chronic fatigue Obesity (BMI 30.0-34.9) CBC WITH AUTO DIFFERENTIAL Routine 08/13/2024 12:18 PM EST Chronic fatigue HIV 1/2 ANTIGEN/ANTIBODY, FOURTH GENERATION W/RFL Routine 08/13/2024 12:18 PM EST Healthcare maintenance HEPATITIS C AB W/REFL TO HCV RNA, QN, PCR Routine 08/13/2024 12:18 PM EST Healthcare maintenance PROLACTIN, DILUTION STUDY Routine 08/13/2024 12:18 PM EST Secondary amenorrhea ESTRADIOL Routine 08/13/2024 12:18 PM EST Secondary amenorrhea FSH Routine 08/13/2024 12:18 PM EST Secondary amenorrhea JENS SCREEN, IFA, W/REFL TITER AND PATTERN Routine 08/13/2024 12:18 PM EST Secondary amenorrhea HCG, TOTAL, QN Routine 08/13/2024 12:18 PM EST Secondary amenorrhea TSH W/REFLEX TO FT4 Routine 08/13/2024 1 2:18 PM EST Secondary amenorrhea POCT , URINE Routine 08/13/2024 12:03 PM EST Secondary amenorrhea CHLAMYDIA/N. GONORRHOEAE RNA, TMA, UROGENITAL Routine 08/13/2024 12:00 AM EST Health care maintenance from Last 3 Months Results * Prolactin, Dilution Study (09/24/2024 9:44 AM EST) Only the most recent of2 resultswithin the time period is included. Prolactin, Undiluted 30.0 ng/mL [facility] Prolactin, Diluted TNP ng/mL [facility] Comment:TEST(S) NOT PERFORME D: PROLACTIN, DILUTEDUNABLE TO REPORTInitial testing necessitateda repeat, but there wasinsufficient sample to perform.THIS TEST WAS PERFORMED AT:[employer] [place] [place] [phone] VIZCARRA MD 09/24/2024 9:44 AM EST 09/24/2024 9:44 AM EST Generic External Data Provider LAB BLOOD ORDERAB LES Final Result Performing Organization Address [facility] de Phone Number [facility] [address] [place] [phone] * Cortisol Random (09/24/2024 9:44 AM EST) Cortisol Random 10.0 ug/dL [facility] Comment:Reference Range*: Be fore 10 am 6.2-19.4 ug/dL After 5 pm 2.3-11.9 ug/dL*Please interpret above results accordingly.This test was performed using the [employer] chemiluminescentmethod. Values obtained from different assay methods cannotbe used interchangeably.Patients receiving fludrocortisone, prednisolone orprednisone may show artificially elevated cortisol valuesdue to cross-reactivity. 09/24/2024 9:44 AM EST 09/24/2024 9:44 AM EST Generic External Data Provider LAB BLOOD ORDERAB LES Final Result Performing Organization Address [facility] Co de Phone Number [facility] [address] [place] [phone] * Prolactin (09/24/2024 9:44 AM EST) Prolactin TNP [facility] Comment:DUPLICATE 09/24/2024 9:44 AM EST 09/24/2024 9:44 AM EST us Generic External Data Provider LAB BLOOD ORDERAB LES Final Result Performing Organization Address [facility] Co de Phone Number [facility] [address] [place] [phone] * IGF-1, LC/MS (09/24/2024 9:44 AM EST) IGF 1, LC/MS 151 53 - 331 ng/mL [facility] Z Score (Male) TNP [facility] Z Score (Female) 0.1 -2.0 - 2.0 SD [facility] Comment:This test was develo ped and its analytical performancecharacteristics have been determined by [employer].It has not been cleared or approved by FDA. This assay hasbeen validated pursuant to the CLIA regulations and is usedfor clinical purposes.THIS TEST WAS PERFORMED AT:[employer] [id number] [facility] [place] [address]ZGXWKROBB ALVAREZ MD,PHD,ADAL 09/24/2024 9:44 AM EST 09/24/2024 9:44 AM EST Generic External Data Provider LAB BLOOD ORDERAB LES Final Result Performing Organization Address [facility] Co de Phone Number [facility] [address] [place] [phone] * Growth Hormone (GH) (09/24/2024 9:44 AM EST) Growth Hormone TNP ng/mL [facility] Comment:UNABLE TO REPORTInit ial testing necessitateda repeat, but there wasinsufficient sample to perform.THIS TEST WAS PERFORMED AT:[employer] [address] [address]KYIWCCHRISSY VIZCARRA MD 09/24/2024 9:44 AM EST 09/24/2024 9:44 AM EST Generic External Data Provider LAB BLOOD ORDERAB LES Final Result Performing Organization Address [facility] de Phone Number [facility] [address] [place] [phone] * DHEA Sulfate (09/24/2024 9:44 AM EST) DHEA Sulfate 92 19 - 237 mcg/dL [facility] Comment:THIS TEST WAS PERFOR MED AT:[employer] [address] [phone] VIZCARRA MD 09/24/2024 9:44 AM EST 09/24/2024 9:44 AM EST [facility] External Data Provider LAB BLOOD ORDERAB LES Final Result Performing Organization Address [facility] [address] [place] [phone] * Estradiol (09/24/2024 9:44 AM EST) Only the most recent of2 resultswithin the time period is included. Estradiol Ultra Sensitive 8 pg/mL [facility] Comment:Female Reference Ran ges for Estradiol, Ultrasensitive (pg/mL): Follicular Phase: 39-375 Luteal Phase: 48-440 Postmenopausal Phase: < or = 10This test was developed and its analytical performancecharacteristics have been determined by [employer].It has not been cleared or approved by FDA. This assay hasbeen validated pursuant to the CLIA regulations and is usedfor clinical purposes.THIS TEST WAS PERFORMED AT:[employer] [id number] KEVIN GOME[place] [address]PCIMCROBB ALVAREZ MD,PHD,ADAL 09/24/2024 9:44 AM EST 09/24/2024 9:44 AM EST Generic External Data Provider LAB BLOOD ORDERAB LES Final Result Performing Organization Address [facility] de Phone Number [facility] [address] [place] [phone] * ACTH, Plasma (09/24/2024 9:44 AM EST) ACTH, Plasma 15 6 - 50 pg/mL [facility] Comment:Reference range appl ies only to specimens collectedbetween 7am-10am.THIS TEST WAS PERFORMED AT:[id number] [place] [address]LLRHCZCSAQIB SMITH MD,PHD 09/24/2024 9:44 AM EST 09/24/2024 9:44 AM EST us Generic External Data Provider LAB BLOOD ORDERAB LES Final Result [facility] [address] [place] [phone] * Testosterone, Free (Dialysis) And Total, MS (09/24/2024 9:44 AM EST) Testosterone, Total 13 2 - 45 ng/dL [facility] Comment:For additional infor andie, please refer tohttp://education.[employer])/faq/JylvnMoquifzuygteWBNHLUHVL142(This link is being provided for informational/educational purposes only.)This test was developed and its analytical performancecharacteristics have been determined by [employer] [place], [place]. It hasnot been cleared or approved by the U.S. Food and DrugAdministration. This assay has been validated pursuantto the CLIA regulations and is used for clinicalpurposes. Testosterone, Free 1.9 0.1 - 6.4 pg/mL [facility] Comment:This test was develo ped and its analytical performancecharacteristics have been determined by [employer] [place], [place]. It hasnot been cleared or approved by the U.S. Food and DrugAdministration. This assay has been validated pursuantto the CLIA regulations and is used for clinicalpurposes.THIS TEST WAS PERFORMED AT:[employer]/[id number] [place] [address]WGJJOJISAQIB SMITH MD,PHD 09/24/2024 9:44 AM EST 09/24/2024 9:44 AM EST us Generic External Data Provider LAB BLOOD ORDERAB LES Final Result Performing Organization Address [facility] Co de Phone Number [facility] [address] [place] [phone] * TSH (09/24/2024 9:44 AM EST) Thyroid Stimulating Hormone 1.01 0.32 - 4.0 uIU/mL [facility] Comment:TSH 3rd Generation ( [facility]) 09/24/2024 9:44 AM EST 09/24/2024 9:44 AM EST Generic External Data Provider LAB BLOOD ORDERAB LES Final Result Performing Organization Address [facility] de Phone Number [facility] [address] [place] [phone] * T4, Free (09/24/2024 9:44 AM EST) Free T4 (Free Thyroxine) 1.04 0.71 - 1.85 ng/dL [facility] 09/24/2024 9:44 AM EST 09/24/2024 9:44 AM EST Generic External Data Provider LAB BLOOD ORDERAB LES Final Result Performing Organization Address [facility] de Phone Number [facility] [address] [place] [phone] * LH (09/24/2024 9:44 AM EST) Lutenizing Hormone 0.6 mIU/mL [facility] Comment:Reference Range Fol licular Phase 1.9-12.5 Mid-Cycle Peak 8.7-76.3 Luteal Phase 0.5-16.9 Postmenopausal 10.0-54.7THIS TEST WAS PERFORMED AT:[employer] [address] [phone] VIZCARRA MD 09/24/2024 9:44 AM EST 09/24/2024 9:44 AM EST Generic External Data Provider LAB BLOOD ORDERAB LES Final Result Performing Organization Address [facility] de Phone Number [facility] [address] [place] [phone] * FSH (09/24/2024 9:44 AM EST) Only the most recent of2 resultswithin the time period is included. Pathologist [facility] Follicle Stimulating Hormone 5.3 mIU/mL [facility] Comment:Reference Range Foll icular Phase 2.5-10.2 Mid-cycle Peak 3.1-17.7 Luteal Phase 1.5- 9.1 Postmenopausal 23.0-116.3THIS TEST WAS PERFORMED AT:[employer] [address] [address]PHQZQCHRISSY VIZCARRA MD 09/24/2024 9:44 AM EST 09/24/2024 9:44 AM EST [facility] External Data Provider LAB BLOOD ORDERAB LES Final Result Performing Organization Address [facility] de Phone Number [facility] [address] [place] [phone] * (ABNORMAL) Basic Metabolic Panel (09/24/2024 9:44 AM EST) Pathologist [facility] Sodium 137 135 - 145 mmol/L [facility] Potassium 4.1 3.3 - 5.1 mmol/L [facility] Chloride 110(H) 96 - 108 mmol/L [facility] Carbon Dioxide 22 22 - 29 mmol/L [facility] Anion Gap 9(L) 12 - 20 [facility] Urea Nitrogen (BUN) 15 9 - 16 mg/dL [facility] Creatinine, Serum 0.77 0.5 - 1.4 mg/dL [facility] Estimated Glomerular Filt Rate >60 [facility] Comment:Chronic Kidney Disea se: Estimated GFR < 60 mL/min/1.96m6Bhjwnp Kidney Disease: Estimated GFR < 15 mL/min/1.73m2 Glucose 100 60 - 115 mg/dL [facility] Calcium 9.0 8.4 - 10.2 mg/dL [facility] 09/24/2024 9:44 AM EST 09/24/2024 9:44 AM EST us Generic External Data Provider LAB BLOOD ORDERAB LES Final Result [facility] [address] [place] [phone] * Cortisol, Free, 24 Hour Urine (09/24/2024 9:22 AM EST) Cortisol, Free, 24 hr Urine 17.3 4.0 - 50.0 mcg/24 h [facility] Comment:This test was develo ped and its analytical performancecharacteristics have been determined by [employer].It has not been cleared or approved by FDA. This assay hasbeen validated pursuant to the CLIA regulations and is usedfor clinical purposes. Creatinine, Urine 1.12 0.50 - 2.15 g/24 h [facility] Comment:THIS TEST WAS PERFOR MED AT:[employer] [id number] [place] [address]ZHQVYROBB ALVAREZ MD,PHD,ADAL Total Volume 1500 mL [facility] 09/24/2024 9:22 AM EST 09/24/2024 10:04 AM EST Narrative [facility] - 09/29/2024 9:58 PM EST [id number] us Generic External Data Provider LAB BLOOD ORDERAB LES Final Result Performing Organization Address [facility] de Phone Number [facility] [address] [place] [phone] * CREATININE, 24 HR GROUP (09/24/2024 8:30 AM EST) Creatinine, 24 Hour Urine 1.1 1.0 - 2.0 G/Day [facility] Creatinine, Urine 71.14 [facility] Urine Total Volume 24 Hour 1,500 mL [facility] 09/24/2024 8:30 AM EST 09/24/2024 9:59 AM EST Narrative [facility] - 09/24/2024 10:50 AM EST [id number] us Generic External Data Provider LAB URINE ORDERAB LES Final Result Performing Organization Address [facility] de Phone Number [facility] [address] [place] [phone] * Mr Brain w/ and w/o Contrast (08/26/2024 11:29 AM EST) Anatomical Region Laterality Modality Brain Magnetic Resonan ce 08/26/2024 11:2 9 AM EST Narrative 08/26/2024 1:21 PM EST ? [facility] ?[address] ?[place] [address] ? Magnetic Resonance Report ? Signed ? Patient: Benjamin,Destinee L ?MR#: [id number] ?? [id number] ? : 1990 ?Acct:[id number] ? Age/Sex: 34 / F ?ADM Date: 12/19/24 ? Loc: HO.MRI ? Attending Dr: Aurea Martinezo CARTON REPAIRER ? Ordering Physician: ElizabethAurea CARTON REPAIRER ?? Date of Service: 08/26/24 ?? Procedure(s): MR head/brain wo/w con ?? Accession Number(s): [id number] ? cc: Aurea Johnson CARTON REPAIRER ? EXAMINATION: ?? MR BRAIN WITHOUT AND WITH CONTRAST ? CLINICAL INFORMATION: ?? Secondary abdomen area. Prolactin level 177.3 ? COMPARISON: ?? None available. ? TECHNIQUE: ?? Multiplanar, multisequence MRI of the brain was obtained before and ?? after the intravenous administration of 4.5 mL Gadavist. ? FINDINGS: ?? The sella is expanded and protrudes into the left sphenoid sinus. There ?? is a 1.1 x 1.4 x 1.4 cm left paracentral hypoenhancing mass occupying ?? almost the entire pituitary gland. Trace rightward deviation of the ?? infundibulum. The suprasellar cistern is normal. The optic chiasm and ?? prechiasmatic optic nerves are normal. The cavernous sinuses are normal. ? No abnormal intracranial enhancement. ? No acute intracranial hemorrhage or infarct. ? No edema, midline shift or hydrocephalus. ?? No acute extra-axial fluid collections. ? The osseous structures are unremarkable. ? The pineal gland and remaining midline structures are unremarkable. ? No orbital pathology. ?? The paranasal sinuses and mastoid air cells are clear. ? MR/MR head/brain wo/w con ?? IMPRESSION: ?? -1.4 cm hypoenhancing mass occupying almost the entire pituitary gland ?? most compatible with a microadenoma. ? -No acute intracranial abnormality. ? Electronically signed by: ??Carrillo Celeste MD ??08/26/2024 01:18 PM EST RP ? Dictated By: ?Carrillo Celeste MD ? Signed By: ?<Electronically signed by Carrillo Celeste MD in OV> ? 08/26/24 1318 ? DD/ 1129 ? TD/TT: 08/26/24 1230 ? [employer] Founder: ? Procedure Note Lenny Kemp - 08/26/[address] [address] Magnetic Resonance Report Signed Patient: Destinee Alexander LMR#: [id number] : 1990Acct:[id number] Age/Sex: 34 / FADM Date: 08/26/24 Loc: HO.MRI Attending Dr: Aurea ARRIOLA Ordering Physician: Aurea Johnson Date of Service: 08/26/24 Procedure(s): MR head/brain wo/w con Accession Number(s): [id number] cc: Aurea Johnson EXAMINATION: MR BRAIN WITHOUT AND WITH CONTRAST CLINICAL INFORMATION: Secondary abdomen area. Prolactin level 177.3 COMPARISON: None available. TECHNIQUE: Multiplanar, multisequence MRI of the brain was obtained before and after the intravenous administration of 4.5 mL Gadavist. FINDINGS: The sella is expanded and protrudes into the left sphenoid sinus. There is a 1.1 x 1.4 x 1.4 cm left paracentral hypoenhancing mass occupying almost the entire pituitary gland. Trace rightward deviation of the infundibulum. The suprasellar cistern is normal. The optic chiasm and prechiasmatic optic nerves are normal. The cavernous sinuses are normal. No abnormal intracranial enhancement. No acute intracranial hemorrhage or infarct. No edema, midline shift or hydrocephalus. No acute extra-axial fluid collections. The osseous structures are unremarkable. The pineal gland and remaining midline structures are unremarkable. No orbital pathology. The paranasal sinuses and mastoid air cells are clear. 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 -No acute intracranial abnormality. Electronically signed by: Carrillo Celeste MD 08/26/2024 01:18 PM EST Dictated By: Carrillo Celeste MD Signed By: <Electronically signed by Carrillo Celeste MD in OV> 08/26/24 1318 DD/ 1129 TD/TT: 08/26/24 1230 [employer] Founder: us Aurea ARRIOLA IMG MRI PROCEDURES Final Resul t * US Pelvis Transvaginal (08/20/2024 2:56 PM EST) Anatomical Region Laterality Modality Pelvis Ultrasound 08/20/2024 2:5 6 PM EST Narrative 09/29/2024 5:39 AM EST ? [facility] ?[address] ?[place] [address] ? Ultrasound Report ? Signed ? Patient: Benjamin,Destinee L ?MR#: [id number] ?? [id number] ? : 1990 ?Acct:[id number] ? Age/Sex: 34 / F ?ADM Date: 08/20/24 ? Loc: HO.US ? Attending Dr: Aurea ARRIOLA ? Ordering Physician: Aurea Johnson ?? Date of Service: 08/20/24 ?? Procedure(s): US pelvic and transvaginal ?? Accession Number(s): [id number] ? cc: Aurea Johnson ? EXAMINATION: ? US PELVIS ? CLINICAL INFORMATION: ? Amenorrhea, last menstrual period 2 years ago. ? COMPARISON: ?? CT abdomen and pelvis of 03/03/2023. ? TECHNIQUE: ?? Ultrasound of the pelvis is performed using both transabdominal and ?? transvaginal transducers along with Doppler. Transvaginal imaging is ?? performed due to inadequate visualization transabdominally. ? FINDINGS: ?? Anteverted uterus measures 4.8 x 2.4 x 2.6 cm. ? Endometrial thickness is 2 mm. ? Right ovary measures 1.1 x 1.2 x 0.9 cm, volume 0.6 mL. ? Left ovary measures 2.1 x 1.2 x 1.1 cm, volume 1.4 mL. ? Minimal amount of fluid in the endocervical canal. ? A 0.7 x 0.7 x 0.6 cm right adnexal cyst appears simple. ? Limited visualization due to bowel gas. ? US/US pelvic and transvaginal ?? IMPRESSION: ?? 1. Endometrial thickness is 2 mm. ? 2.A 0.7 x 0.7 x 0.6 cm right adnexal cyst appears simple. ? Electronically signed by: ??Jenn Jenkins MD ??09/29/2024 05:36 AM EST ?? RP ? Dictated By: ?Jenn Jenkins MD ? Signed By: ?<Electronically signed by Jenn Jenkins MD in OV> ? 09/29/24 0536 ? DD/ 1456 ? TD/TT: 08/20/24 1508 ? [employer] Founder: ? Procedure Note Donotuseinterpreter, Image - 09/29/[address] [address] Ultrasound Report Signed Patient: Destinee Alexander LMR#: [id number] : 1990Acct:[id number] Age/Sex: 34 / FADM Date: 08/20/24 Loc: HO.US Attending Dr: Aurea ARRIOLA Ordering Physician: Aurea Johnson Date of Service: 08/20/24 Procedure(s): US pelvic and transvaginal Accession Number(s): [id number] cc: Aurea Johnson EXAMINATION: US PELVIS CLINICAL INFORMATION: Amenorrhea, last menstrual period 2 years ago. COMPARISON: CT abdomen and pelvis of 03/03/2023. TECHNIQUE: Ultrasound of the pelvis is performed using both transabdominal and transvaginal transducers along with Doppler. Transvaginal imaging is performed due to inadequate visualization transabdominally. FINDINGS: Anteverted uterus measures 4.8 x 2.4 x 2.6 cm. Endometrial thickness is 2 mm. Right ovary measures 1.1 x 1.2 x 0.9 cm, volume 0.6 mL. Left ovary measures 2.1 x 1.2 x 1.1 cm, volume 1.4 mL. Minimal amount of fluid in the endocervical canal. A 0.7 x 0.7 x 0.6 cm right adnexal cyst appears simple. Limited visualization due to bowel gas. US/US pelvic and transvaginal IMPRESSION: 1. Endometrial thickness is 2 mm. 2.A 0.7 x 0.7 x 0.6 cm right adnexal cyst appears simple. Electronically signed by: Jenn Jenkins MD 09/29/2024 05:36 AM EST Dictated By: Jenn Jenkins MD Signed By: <Electronically signed by Jenn Jenkins MD in OV> 09/29/24 0536 DD/ 1456 TD/TT: 08/20/24 1508 [employer] Founder: Aurea Michaelwoo MONSONP IMG US PROCEDURES Final Result * (ABNORMAL) POCT Urinalysis (08/13/2024 12:36 PM EST) Pathologist [facility] Color, UA Yellow Clarity, UA Clear Glucose, UA Negative Bilirubin, UA Negative Ketones, UA Negative Spec Grav, UA 1.025 Blood, UA Positive(A) Negative, None Detected Comment:Trace-lysed pH, UA 6.5 Protein, UA Negative Urobilinogen, UA 0.2 Leukocytes, UA Negative Negative, Rare, Trace Nitrite, UA Negative Negative, None Detected QC Media Lot # [id number] Lot# Expiration Date Urine 08/13/2024 12:3 6 PM EST Aurea Johnson [facility] POINT OF CARE TEST ENTER/EDIT ORDERABLES Final Result * TSH W/Reflex to FT4 (08/13/2024 12:18 PM EST) Pathologist [facility] TSH reflex Free T4 0.60 0.32 - 4.0 uIU/mL [facility] Blood Venous blood specimen / Unknown 08/13/2024 12:18 PM EST 08/13/2024 12:55 PM EST Sharon Bond NP LAB BLOOD ORDERABLES Final Resul t [facility] [address] [place] [phone] * (ABNORMAL) CBC auto differential (08/13/2024 12:18 PM EST) Pathologist [facility] White Blood Count 5.9 4.8 - 10.8 X10*3/uL [facility] Red Blood Count 4.54 4.20 - 5.50 X10*6/uL [facility] Hemoglobin 13.7 12.0 - 16.0 g/dl [facility] Hematocrit 39.4 37.0 - 47.0 % [facility] Mean Corpuscular Volume 86.8 80.0 - 98.0 fL [facility] Mean Corpuscular Hemoglobin 30.2 27.0 - 33.0 pg [facility] Mean Corpuscular HGB Conc 34.8 31.0 - 35.0 g/dl [facility] Red Cell Distribution Width 13.2 11.0 - 16.0 % [facility] Platelet Count 328 160 - 400 X10*3/uL [facility] Mean Platelet Volume 10.4 9.4 - 12.3 fL [facility] Neutrophils Percent Auto 49.0 45 - 73 % [facility] Imm Gran Pct Auto 0.2 0.0 - 0.4 % [facility] Lymphocytes Percent Auto 36.7 20 - 40 % [facility] Monocytes Percent Auto 6.1 2 - 11 % [facility] Eosinophils Percent Auto 6.8(H) 0 - 4 % [facility] Basophils Percent Auto 1.2 0 - 2 % [facility] NRBC Pct Auto 0.0 0.0 - 0.2 /100WBC [facility] Neutrophils Absolute Auto 2.9 2.0 - 8.3 x10*3/uL [facility] Imm Gran Abs Auto 0.01 0.00 - 0.03 X10*3/uL [facility] Lymphocytes Absolute Auto 2.2 1.2 - 4.9 X10*3/uL [facility] Monocytes Absolute Auto 0.4 0.1 - 1.2 X10*3/uL [facility] Eosinophils Absolute Auto 0.4 0.0 - 0.4 X10*3/uL [facility] Basophils Absolute Auto 0.1 0.0 - 0.2 X10*3/uL [facility] NRBC Abs Auto 0.000 0.0 - 0.012 X10*3/uL [facility] Blood Venous blood specimen / Unknown 08/13/2024 12:18 PM EST 08/13/2024 12:55 PM EST us Sharon Bond IDENTIFICATION TECHNICIAN LAB BLOOD ORDERABLES Final Resul t Performing Organization Address [facility] Co de Phone Number [facility] [address] [place] [phone] * Hepatitis C Antibody with Reflex to HCV, RNA, Quantitative, Real-Time PCR (08/13/2024 12:18 PM EST) Hepatitis C Antibody Nonreactive Nonreactive [facility] Comment:Antibodies to HCV no t detected; does not exclude early acuteHCV infection. Blood Venous blood specimen / Unknown 08/13/2024 12:18 PM EST 08/13/2024 12:55 PM EST us Sharon Bond NP LAB BLOOD ORDERABLES Final Resul t Performing Organization Address [facility] de Phone Number [facility] [address] [place] [phone] * Hepatitis B surface antigen, EIA (08/13/2024 12:18 PM EST) Hepatitis B Surface Ag Negative Negative [facility] Blood Venous blood specimen / Unknown 08/13/2024 12:18 PM EST 08/13/2024 12:55 PM EST us Sharon Bond NP LAB BLOOD ORDERABLES Final Resul t Performing Organization Address [facility] Co de Phone Number [facility] [address] [place] [phone] * Hepatitis B Core Antibody, Total (08/13/2024 12:18 PM EST) Hepatitis B Core Antibody Nonreactive Nonreactive [facility] Blood Venous blood specimen / Unknown 08/13/2024 12:18 PM EST 08/13/2024 12:55 PM EST us Sharon Bond NP LAB BLOOD ORDERABLES Final Resul t Performing Organization Address [facility] Co de Phone Number [facility] [address] [place] [phone] * HIV-1/2 Antigen and Antibodies, Fourth Generation, with Reflexes (08/13/2024 12:18 PM EST) Pathologist [facility] HIV AB/AG Nonreactive Nonreactive [facility] Comment:HIV-1 p24 Ag and/or HIV-1/HIV-2 Ab not detected.A test result that is nonreactive does not exclude thepossibility of exposure to or infection with HIV-1 and/orHIV-2. Nonreactive results in this assay for individualswith prior exposure to HIV-1 and/or HIV-2 may be due toantigen and antibody levels that are below the limit ofdetection of this assay.The [employer] HIV Ag/Ab Combo assay result andsupplemental assay results should be interpreted inconjunction with the patient's clinical presentation,history and other laboratory results. If the results areinconsistent with clinical evidence, additional testing issuggested to confirm the result. Blood Venous blood specimen / Unknown 08/13/2024 12:18 PM EST 08/13/2024 12:55 PM EST us Sharon Bond NP LAB BLOOD ORDERABLES Final Resul t Performing Organization Address [facility]/ZIP Co de Phone Number [facility] [address] [place] [phone] * Hepatitis B Surface Antibody, Qualitative (08/13/2024 12:18 PM EST) [facility] ~Hepatitis B Surface Antibody REACTIVE Nonreactive [facility] Comment:REACTIVE: > 11.99 mI U/mL Blood Venous blood specimen / Unknown 08/13/2024 12:18 PM EST 08/13/2024 12:55 PM EST Sharon Bond NP LAB BLOOD ORDERABLES Final Resul t Performing Organization Address [facility] Co de Phone Number [facility] [address] [place] [phone] * JENS Screen,IFA, with Reflex to Titer and Pattern (08/13/2024 12:18 PM EST) Anti Nuclear Antibody Screen NEGATIVE NEGATIVE [facility] Comment:JENS IFA is a first l ine screen for detecting thepresence of up to approximately 150 autoantibodies invarious autoimmune diseases. A negative JENS IFA resultsuggests an JENS-associated autoimmune disease is notpresent at this time, but is not definitive. If thereis high clinical suspicion for Sjogren's syndrome,testing for anti-SS-A/Ro antibody should be considered.Anti-Juana-1 antibody should be considered for clinicallysuspected inflammatory myopathies.AC-0: NegativeInternational Consensus on JENS Patterns(https://doi.org/10.1515/lifv-2181-1100)For additional information, please refer tohttp://education.[employer]/faq/ITJ823(This link is being provided for informational/educational purposes only.)THIS TEST WAS PERFORMED AT:[employer] [place] [phone] VIZCARRA MD JENS Titer TNP [facility] JENS Pattern [facility] JENS TITER 2 (REF LAB) [facility] JENS Pattern 2 [facility] JENS TITER 3 [facility] JENS PATTERN 3 [facility] Blood Venous blood specimen / Unknown 08/13/2024 12:18 PM EST 08/13/2024 12:55 PM EST us Sharon Bond NP LAB BLOOD ORDERABLES Final Resul t [facility] [address] [place] [phone] * hCG, Total, Quantitative (08/13/2024 12:18 PM EST) HCG Quantitative <2 mIU/mL [facility] Comment:Weeks post LMP Appro ximate hCG(Last Menstrual Period) Range (mIU/ml)3 - 4 weeks 9 - 1304 - 5 weeks 75 - 2,6005 - 6 weeks 850 - 20,8006 - 7 weeks 4000 - 100,2007 - 12 weeks 11,500 - 289,11265 - 16 weeks 18,300 - 137,03595 - 29 weeks (2nd trimester) 1,400 - 53,85880 - 41 weeks (3rd trimester) 940 - 60,000The Dominguez B- hCG assay is used for the early detection ofpregnancy; it cannot be used to diagnose any conditionunrelated to . If a B-hCG level is not supportedby the clinical evidence, results should be confirmed by analternative method (qualitative urine hCG, for example). Blood Venous blood specimen / Unknown 08/13/2024 12:18 PM EST 08/13/2024 12:55 PM EST us Sharon Bond NP LAB BLOOD ORDERABLES Final Resul t Performing Organization Address [facility] de Phone Number [facility] [address] [place] [phone] * Hemoglobin A1c (08/13/2024 12:18 PM EST) Hemoglobin A1c 5.4 <6.0 % [facility] Comment:Hemoglobin A1C Refer ence Range Adults: 4.8 - 6.0 % Non diabetic: < 6.0 % Goal: < 7.0 %Additional Action Suggested: > 8.0 %Note: Hemoglobin A1c results are invalid for patients with abnormal amounts of HbF. Blood transfusions may impact the HbA1c concentration in the patient sample. Estimated Average Glucose 108 mg/dL [facility] Comment:eAG = Estimated ave rage glucose which is %A1C expressed asaverage glucose, using the formula of the X5I-ZinctqbAaunori Glucose study (ADAG), Diabetes Care, Vol.31,#8,Apr. 2007 Blood Venous blood specimen / Unknown 08/13/2024 12:18 PM EST 08/13/2024 12:55 PM EST us Sharon Bond NP LAB BLOOD ORDERABLES Final Resul t Performing Organization Address [facility] Co de Phone Number [facility] [address] [place] [phone] * (ABNORMAL) Lipid Panel, Standard (08/13/2024 12:18 PM EST) Triglycerides 182(H) <150 mg/dL [facility] Comment:Desirable Triglyceri de: less than 150 mg/dLBorderline High Triglyceride 150-199 mg/dLHigh Triglyceride: 200-499 mg/dLVery High Triglyceride: greater than or equal to 5OO mg/dL Cholesterol 252(H) <200 mg/dL [facility] Comment:Desirable Cholestero l: less than 200 mg/dLBorderline High Cholesterol: 200-239 mg/dLHigh Cholesterol: greater than 239 mg/dL LDL Cholesterol Calculated 175(H) <100 mg/dL [facility] Comment:Desirable LDL: less than 100 mg/dLNear Optimal/Above Optimal LDL: 110- 129 mg/dLBorderline High LDL: 130-159 mg/dLHigh LDL: 160-189 mg/dLVery High LDL: greater than or equal to 190 mg/dL HDL Cholesterol 41 >40 mg/dL [facility] Comment:Desirable HDL: great er than 40 mg/dL Note: This HDL assay may give artificially low results in patients with liver disease. Blood Venous blood specimen / Unknown 08/13/2024 12:18 PM EST 08/13/2024 12:55 PM EST us Sharon Bond IDENTIFICATION TECHNICIAN LAB BLOOD ORDERABLES Final Resul t [facility] [address] [place] [phone] * Comprehensive Metabolic Panel (08/13/2024 12:18 PM EST) Sodium 139 135 - 145 mmol/L [facility] Potassium 4.0 3.3 - 5.1 mmol/L [facility] Chloride 105 96 - 108 mmol/L [facility] Carbon Dioxide 26 22 - 29 mmol/L [facility] Anion Gap 12 12 - 20 [facility] Urea Nitrogen (BUN) 11 9 - 16 mg/dL [facility] Creatinine, Serum 0.82 0.5 - 1.4 mg/dL [facility] Estimated Glomerular Filt Rate >60 [facility] Comment:Chronic Kidney Disea se: Estimated GFR < 60 mL/min/1.75g5Ibawzd Kidney Disease: Estimated GFR < 15 mL/min/1.73m2 Glucose 100 60 - 115 mg/dL [facility] Calcium 9.8 8.4 - 10.2 mg/dL [facility] Bilirubin, Total 0.3 0.0 - 1.0 mg/dL [facility] Aspartate Amino Transferase 27 5 - 31 U/L [facility] Alanine Aminotransferase 27 0 - 31 U/L [facility] Total Protein 7.9 6.5 - 8.0 g/dL [facility] Albumin Level 4.4 3.5 - 5.0 g/dL [facility] Alkaline Phosphatase 98 39 - 117 U/L [facility] Blood Venous blood specimen / Unknown 08/13/2024 12:18 PM EST 08/13/2024 12:55 PM EST Sharon Bond IDENTIFICATION TECHNICIAN LAB BLOOD ORDERABLES Final Resul t [facility] [address] [place] [phone] * POCT Urine (08/13/2024 12:03 PM EST) [facility] Preg Test, Ur Negative Negative, Indeterminate, None Detected, Invalid, Specimen unsatisfactory for evaluation, Weakly Positive QC Media Lot # [id number] Lot# Expiration Date [id number] Urine 08/13/2024 12:0 3 PM EST Aurea Johnson CARTON REPAIRER POINT OF CARE TEST ENTER/EDIT ORDERABLES Final Result * Chlamydia/N. Gonorrhoeae RNA, TMA, Urogenitial (08/13/2024 12:00 AM EST) [facility] CT PCR NOT DETECTED Not Detect. [facility] Comment:A not detected test result does not exclude the possibilityof infection because test results can be affected byimproper specimen collection, concurrent antibiotic therapy,or the number of organisms in the specimen which may bebelow the sensitivity of the test. As with many diagnostictests, results from the Xpert CT/NG assay should beinterpreted in conjunction with other laboratory andclinical data available to the clinician.Xpert CT/NG performance has not been evaluated in patientsless than 14 years of age. The assay should not be used forthe evaluationof suspected sexual abuse or for other medico-legalindications. Additional testing is recommended in anycircumstance when false positive or false negative resultscould lead to adverse medical, social or psychologicalconsequences. NG PCR NOT DETECTED Not Detect. [facility] Comment:A not detected test result does not exclude the possibilityof infection because test results can be affected byimproper specimen collection, concurrent antibiotic therapy,or the number of organisms in the specimen which may bebelow the sensitivity of the test. As with many diagnostictests, results from the Xpert CT/NG assay should beinterpreted in conjunction with other laboratory andclinical data available to the clinician.Xpert CT/NG performance has not been evaluated in patientsless than 14 years of age. The assay should not be used forthe evaluationof suspected sexual abuse or for other medico-legalindications. Additional testing is recommended in anycircumstance when false positive or false negative resultscould lead to adverse medical, social or psychologicalconsequences. Urine (Urine, Random) 08/13/2024 08/13/2024 Narrative [facility] - 08/14/2024 2:44 PM EST Urine us Aurea MONSONP LAB MICROBIOLOGY - GENERAL ORD ERABLES Final Result [facility] [address] [place] [phone] from Last 3 Months Insurance [facility] PPO Care Teams Associate Faculty Relationship Specialty Start Date End Date Aurea Johnson FNP [address] [place] [phone] PCP - General Family Medicine 07/02/24
--- OUTSIDE RECORDS SUMMARY | 2024-11-03 10:15 | XMS_ITS | Encounter Summary ---
Author Organization [employer] Address [address] [place] [address] Care Team Providers Care Telephone Sales Representative Name Role Phone Gabriel Johnsonupe SUPERVISOR SANDBLASTER Primary Care Provider [phone] Encounter Details Date Type Department Care Team ([facility] st Contact Info) Description 08/13/2024 Orders Only [facility] MEDICINE [address], [place] [phone] Sharon Bond NP [address] [place], [place] [phone] Secondary amenorrhea (Primary Dx); Chronic fatigue; Obesity (BMI 30.0-34.9); Healthcare maintenance Social History Tobacco Use Types Packs/Day Years Used Date Smoking Tobacco: Never Passive Smoke Exposure: Never Smokeless Tobacco: Never Depression Answer Date Recorded Patient Health Questionnaire-9 [...] Don't know 07/08/2022 10 :38 AM EDT documented as of this encounter Plan of Treatment Upcoming Encounters Date Type Department Care Team ([facility] st Contact Info) Description 11/26/2024 1:30 PM EDT Office Visit [facility] MEDICINE [address], [place] [phone] Aurea Johnson FNP [address] [place] [phone] documented as of this encounter Procedures Procedure Name Priority Date/Time Associated Diagnosis Comments PROLACTIN, DILUTION STUDY Routine 09/24/2024 9:44 AM EST Secondary amenorrhea CORTISOL RANDOM Routine 09/24/2024 9:44 AM EST Secondary amenorrhea PROLACTIN Routine 09/24/2024 9:44 AM EST Secondary amenorrhea IGF 1, LC/MS Routine 09/24/2024 9:44 AM EST Secondary amenorrhea GROWTH HORMONE (GH) Routine 09/24/2024 9 :44 AM EST Secondary amenorrhea DHEA SULFATE Routine 09/24/2024 9:44 AM EST Secondary amenorrhea ESTRADIOL Routine 09/24/2024 9:44 AM EST Secondary amenorrhea ACTH, PLASMA Routine 09/24/2024 9:44 AM EST Secondary amenorrhea TESTOSTERONE, FREE (DIALYSIS) AND TOTAL,MS Routine 09/24/2024 9:44 AM EST Secondary amenorrhea TSH Routine 09/24/2024 9:44 AM EST Secondary amenorrhea T4, FREE Routine 09/24/2024 9:44 AM EST Secondary amenorrhea LH Routine 09/24/2024 9:44 AM EST Secondary amenorrhea FSH Routine 09/24/2024 9:44 AM EST Secondary amenorrhea BASIC METABOLIC PANEL Routine 09/24/2024 9:44 AM EST Secondary amenorrhea CORTISOL FREE, URINE, 24 HOUR Routine 09/24/2024 9:22 AM EST Secondary amenorrhea CREATININE, 24 HR GROUP Routine 09/24/2024 8:30 AM EST Secondary amenorrhea PROLACTIN, DILUTION STUDY Routine 08/13/2024 12:18 PM EST Secondary amenorrhea TSH W/REFLEX TO FT4 Routine 08/13/2024 1 2:18 PM EST Secondary amenorrhea CBC WITH AUTO DIFFERENTIAL Routine 08/13/2024 12:18 PM EST Chronic fatigue HEPATITIS C AB W/REFL TO HCV RNA, QN, PCR Routine 08/13/2024 12:18 PM EST Healthcare maintenance HEPATITIS B SURFACE ANTIGEN, EIA Routine 08/13/2024 12:18 PM EST Healthcare maintenance HEPATITIS B CORE AB TOTAL Routine 08/13/2024 12:18 PM EST Healthcare maintenance ESTRADIOL Routine 08/13/2024 12:18 PM EST Secondary amenorrhea HIV 1/2 ANTIGEN/ANTIBODY, FOURTH GENERATION W/RFL Routine 08/13/2024 12:18 PM EST Healthcare maintenance HEPATITIS B SURFACE ANTIBODY, QUALITATIVE Routine 08/13/2024 12:18 PM EST Healthcare maintenance JENS SCREEN, IFA, W/REFL TITER AND PATTERN Routine 08/13/2024 12:18 PM EST Secondary amenorrhea HCG, TOTAL, QN Routine 08/13/2024 12:18 PM EST Secondary amenorrhea HEMOGLOBIN A1C Routine 08/13/2024 12:18 PM EST Chronic fatigue Obesity (BMI 30.0-34.9) FSH Routine 08/13/2024 12:18 PM EST Secondary amenorrhea LIPID PANEL, STANDARD Routine 08/13/2024 12:18 PM EST Healthcare maintenance COMPREHENSIVE METABOLIC PANEL Routine 08/13/2024 12:18 PM EST Chronic fatigue Obesity (BMI 30.0-34.9) documented in this encounter Results * Prolactin (09/24/2024 9:44 AM EST) Prolactin TNP [facility] Comment:DUPLICATE 09/24/2024 9:44 AM EST 09/24/2024 9:44 AM EST us Generic External Data Provider LAB BLOOD ORDERAB LES Final Result [facility] [address] [place] [phone] * Prolactin, Dilution Study (09/24/2024 9:44 AM EST) Prolactin, Undiluted 30.0 ng/mL [facility] Prolactin, Diluted TNP ng/mL [facility] Comment:TEST(S) NOT PERFORME D: PROLACTIN, DILUTEDUNABLE TO REPORTInitial testing necessitateda repeat, but there wasinsufficient sample to perform.THIS TEST WAS PERFORMED AT:[facility] [address] Heather VIZCARRA MD 09/24/2024 9:44 AM EST 09/24/2024 9:44 AM EST Generic External Data Provider LAB BLOOD ORDERAB LES Final Result Performing Organization Address [facility] Co de Phone Number [facility] [address] [place] [phone] * Growth Hormone (GH) (09/24/2024 9:44 AM EST) Growth Hormone TNP ng/mL [facility] Comment:UNABLE TO REPORTInit ial testing necessitateda repeat, but there wasinsufficient sample to perform.THIS TEST WAS PERFORMED AT:[facility] [address] STEVEN VIZCARRA MD 09/24/2024 9:44 AM EST 09/24/2024 9:44 AM EST Generic External Data Provider LAB BLOOD ORDERAB LES Final Result Performing Organization Address [facility] de Phone Number [facility] [address] [place] [phone] * LH (09/24/2024 9:44 AM EST) Lutenizing Hormone 0.6 mIU/mL [facility] Comment:Reference Range Foll icular Phase 1.9-12.5 Mid-Cycle Peak 8.7-76.3 Luteal Phase 0.5-16.9 Postmenopausal 10.0-54.7THIS TEST WAS PERFORMED AT:[facility] [address] STEVEN VIZCARRA MD 09/24/2024 9:44 AM EST 09/24/2024 9:44 AM EST Generic External Data Provider LAB BLOOD ORDERAB LES Final Result Performing Organization Address [facility] Co de Phone Number [facility] [address] [place] [phone] * FSH (09/24/2024 9:44 AM EST) Follicle Stimulating Hormone 5.3 mIU/mL [facility] Comment:Reference Range Foll icular Phase 2.5-10.2 Mid-cycle Peak 3.1-17.7 Luteal Phase 1.5- 9.1 Postmenopausal 23.0-116.3THIS TEST WAS PERFORMED AT:[facility] [address] [id number] VIZCARRA MD 09/24/2024 9:44 AM EST 09/24/2024 9:44 AM EST Generic External Data Provider LAB BLOOD ORDERAB LES Final Result Performing Organization Address [facility] de Phone Number [facility] [address] [place] [phone] * Estradiol (09/24/2024 9:44 AM EST) Estradiol Ultra Sensitive 8 pg/mL [facility] Comment:Female Reference Ran ges for Estradiol, Ultrasensitive (pg/mL): Follicular Phase: 39-375 Luteal Phase: 48-440 Postmenopausal Phase: < or = 10This test was developed and its analytical performancecharacteristics have been determined by [employer].It has not been cleared or approved by FDA. This assay hasbeen validated pursuant to the CLIA regulations and is usedfor clinical purposes.THIS TEST WAS PERFORMED AT:[facility] [id number] KEVIN GOMEZ [id number] ALVAREZ MD,PHD,ADAL 09/24/2024 9:44 AM EST 09/24/2024 9:44 AM EST us Generic External Data Provider LAB BLOOD ORDERAB LES Final Result Performing Organization Address City/[facility]/ZIP Co de Phone Number [facility] [address] [place], [place] [phone] * Testosterone, Free (Dialysis) And Total, MS (09/24/2024 9:44 AM EST) Pathologist [facility] Testosterone, Total 13 2 - 45 ng/dL [facility] Comment:For additional infor luis miguelmerlene, please refer [email or web address].BLOVES/faq/[email or web address](This link is being provided for informational/educational purposes only.)This test was developed and its analytical performancecharacteristics have been determined by [employer] [place], [place]. It hasnot been cleared or approved by the U.S. Food and DrugAdministration. This assay has been validated pursuantto the CLIA regulations and is used for clinicalpurposes. Testosterone, Free 1.9 0.1 - 6.4 pg/mL [facility] Comment:This test was develo ped and its analytical performancecharacteristics have been determined by [employer]. It hasnot been cleared or approved by the U.S. Food and DrugAdministration. This assay has been validated pursuantto the CLIA regulations and is used for clinicalpurposes.THIS TEST WAS PERFORMED AT:[facility] [id number] [place] [id number] SMITH MD,PHD 09/24/2024 9:44 AM EST 09/24/2024 9:44 AM EST Generic External Data Provider LAB BLOOD ORDERAB LES Final Result Performing Organization Address City/[facility]/ZIP Co de Phone Number [facility] [address] [place] [phone] * ACTH, Plasma (09/24/2024 9:44 AM EST) Pathologist [facility] ACTH, Plasma 15 6 - 50 pg/mL [facility] Comment:Reference range appl ies only to specimens collectedbetween 7am-10am.THIS TEST WAS PERFORMED AT:[facility]/SANCHEZ [id number] [place] [address]MJZIPLLSAQIB SMITH MD,PHD 09/24/2024 9:44 AM EST 09/24/2024 9:44 AM EST Generic External Data Provider LAB BLOOD ORDERAB LES Final Result Performing Organization Address [facility] de Phone Number [facility] [address] [place] [phone] * IGF-1, LC/MS (09/24/2024 9:44 AM EST) IGF 1, LC/MS 151 53 - 331 ng/mL [facility] Z Score (Male) TNP [facility] Z Score (Female) 0.1 -2.0 - 2.0 SD [facility] Comment:This test was develo ped and its analytical performancecharacteristics have been determined by [employer].It has not been cleared or approved by FDA. This assay hasbeen validated pursuant to the CLIA regulations and is usedfor clinical purposes.THIS TEST WAS PERFORMED AT:[facility]/SANCHEZ [id number] [facility] [place] [address]SZURVROBB ALVAREZ MD,PHD,ADAL 09/24/2024 9:44 AM EST 09/24/2024 9:44 AM EST Generic External Data Provider LAB BLOOD ORDERAB LES Final Result Performing Organization Address [facility] Co de Phone Number [facility] [address] [place] [phone] * DHEA Sulfate (09/24/2024 9:44 AM EST) DHEA Sulfate 92 19 - 237 mcg/dL [facility] Comment:THIS TEST WAS PERFOR MED AT:[employer] [place] [id number] VIZCARRA MD 09/24/2024 9:44 AM EST 09/24/2024 9:44 AM EST Generic External Data Provider LAB BLOOD ORDERAB LES Final Result Performing Organization Address [facility] Co de Phone Number [facility] [address] [place] [phone] * Cortisol Random (09/24/2024 9:44 AM EST) Cortisol Random 10.0 ug/dL [facility] Comment:Reference Range*: Be fore 10 am 6.2-19.4 ug/dL After 5 pm 2.3-11.9 ug/dL*Please interpret above results accordingly.This test was performed using the [employer] chemiluminescentmethod. Values obtained from different assay methods cannotbe used interchangeably.Patients receiving fludrocortisone, prednisolone orprednisone may show artificially elevated cortisol valuesdue to cross-reactivity. 09/24/2024 9:44 AM EST 09/24/2024 9:44 AM EST us Generic External Data Provider LAB BLOOD ORDERAB LES Final Result Performing Organization Address [facility] Co de Phone Number [facility] [address] [place] [phone] * TSH (09/24/2024 9:44 AM EST) Thyroid Stimulating Hormone 1.01 0.32 - 4.0 uIU/mL [facility] Comment:TSH 3rd Generation ( [facility]) 09/24/2024 9:44 AM EST 09/24/2024 9:44 AM EST Generic External Data Provider LAB BLOOD ORDERAB LES Final Result Performing Organization Address [facility] Co de Phone Number [facility] [address] [place] [phone] * T4, Free (09/24/2024 9:44 AM EST) Free T4 (Free Thyroxine) 1.04 0.71 - 1.85 ng/dL [facility] 09/24/2024 9:44 AM EST 09/24/2024 9:44 AM EST us Generic External Data Provider LAB BLOOD ORDERAB LES Final Result Performing Organization Address [facility]/ZIP Co de Phone Number [facility] [address] [place] [phone] * (ABNORMAL) Basic Metabolic Panel (09/24/2024 9:44 AM EST) Pathologist [facility] Sodium 137 135 - 145 mmol/L [facility] Potassium 4.1 3.3 - 5.1 mmol/L [facility] Chloride 110(H) 96 - 108 mmol/L [facility] Carbon Dioxide 22 22 - 29 mmol/L [facility] Anion Gap 9(L) 12 - 20 [facility] Urea Nitrogen (BUN) 15 9 - 16 mg/dL [facility] Creatinine, Serum 0.77 0.5 - 1.4 mg/dL [facility] Estimated Glomerular Filt Rate >60 [facility] Comment:Chronic Kidney Disea se: Estimated GFR < 60 mL/min/1.96l4Ubxthu Kidney Disease: Estimated GFR < 15 mL/min/1.73m2 Glucose 100 60 - 115 mg/dL [facility] Calcium 9.0 8.4 - 10.2 mg/dL [facility] 09/24/2024 9:44 AM EST 09/24/2024 9:44 AM EST Generic External Data Provider LAB BLOOD ORDERAB LES Final Result Performing Organization Address [facility]/ZIP Co de Phone Number [facility] [address] [place] [phone] * Cortisol, Free, 24 Hour Urine (09/24/2024 9:22 AM EST) Cortisol, Free, 24 hr Urine 17.3 4.0 - 50.0 mcg/24 h [facility] Comment:This test was develo ped and its analytical performancecharacteristics have been determined by [employer].It has not been cleared or approved by FDA. This assay hasbeen validated pursuant to the CLIA regulations and is usedfor clinical purposes. Creatinine, Urine 1.12 0.50 - 2.15 g/24 h [facility] Comment:THIS TEST WAS PERFOR MED AT:[facility] [id number] [place] [id number] ALVAREZ MD,PHD,ADAL Total Volume 1500 mL [facility] 09/24/2024 9:22 AM EST 09/24/2024 10:04 AM EST [facility] - 09/29/2024 9:58 PM EST [id number] us Generic External Data Provider LAB BLOOD ORDERAB LES Final Result Performing Organization Address [facility] Co de Phone Number [facility] [address] [place] [phone] * CREATININE, 24 HR GROUP (09/24/2024 8:30 AM EST) Creatinine, 24 Hour Urine 1.1 1.0 - 2.0 G/Day [facility] Creatinine, Urine 71.14 [facility] Urine Total Volume 24 Hour 1,500 mL [facility] 09/24/2024 8:30 AM EST 09/24/2024 9:59 AM EST Narrative [facility] - 09/24/2024 10:50 AM EST [id number] us Generic External Data Provider LAB URINE ORDERAB LES Final Result [facility] [address] [place] [phone] * Hepatitis B surface antigen, EIA (08/13/2024 12:18 PM EST) Hepatitis B Surface Ag Negative Negative [facility] Blood Venous blood specimen / Unknown 08/13/2024 12:18 PM EST 08/13/2024 12:55 PM EST us Sharon Bond NP LAB BLOOD ORDERABLES Final Resul t Performing Organization Address [facility] Co de Phone Number [facility] [address] [place] [phone] * Hepatitis B Core Antibody, Total (08/13/2024 12:18 PM EST) Hepatitis B Core Antibody Nonreactive Nonreactive [facility] Blood Venous blood specimen / Unknown 08/13/2024 12:18 PM EST 08/13/2024 12:55 PM EST Sharon Bond NP LAB BLOOD ORDERABLES Final Resul t Performing Organization Address [facility] Number [facility] [address] [place] [phone] * Hepatitis B Surface Antibody, Qualitative (08/13/2024 12:18 PM EST) ~Hepatitis B Surface Antibody REACTIVE Nonreactive [facility] Comment:REACTIVE: > 11.99 mI U/mL Blood Venous blood specimen / Unknown 08/13/2024 12:18 PM EST 08/13/2024 12:55 PM EST Sharon Bond NP LAB BLOOD ORDERABLES Final Resul t Performing Organization Address [facility] Co de Phone Number [facility] [address] [place] [address] [phone] * (ABNORMAL) Lipid Panel, Standard (08/13/2024 12:18 PM EST) Triglycerides 182(H) <150 mg/dL [facility] Comment:Desirable Triglyceri de: less than 150 mg/dLBorderline High Triglyceride 150-199 mg/dLHigh Triglyceride: 200-499 mg/dLVery High Triglyceride: greater than or equal to 5OO mg/dL Cholesterol 252(H) <200 mg/dL [facility] Comment:Desirable Cholestero l: less than 200 mg/dLBorderline High Cholesterol: 200-239 mg/dLHigh Cholesterol: greater than 239 mg/dL LDL Cholesterol Calculated 175(H) <100 mg/dL [facility] Comment:Desirable LDL: less than 100 mg/dLNear Optimal/Above Optimal LDL: 110- 129 mg/dLBorderline High LDL: 130-159 mg/dLHigh LDL: 160-189 mg/dLVery High LDL: greater than or equal to 190 mg/dL HDL Cholesterol 41 >40 mg/dL [facility] Comment:Desirable HDL: great er than 40 mg/dL Note: This HDL assay may give artificially low results in patients with liver disease. Blood Venous blood specimen / Unknown 08/13/2024 12:18 PM EST 08/13/2024 12:55 PM EST us Sharon Bond NP LAB BLOOD ORDERABLES Final Resul t [facility] [address] [place] [phone] * Comprehensive Metabolic Panel (08/13/2024 12:18 PM EST) Sodium 139 135 - 145 mmol/L [facility] Potassium 4.0 3.3 - 5.1 mmol/L [facility] Chloride 105 96 - 108 mmol/L [facility] Carbon Dioxide 26 22 - 29 mmol/L [facility] Anion Gap 12 12 - 20 [facility] Urea Nitrogen (BUN) 11 9 - 16 mg/dL [facility] Creatinine, Serum 0.82 0.5 - 1.4 mg/dL [facility] Estimated Glomerular Filt Rate >60 [facility] Comment:Chronic Kidney Disea se: Estimated GFR < 60 mL/min/1.27n4Lybjvb Kidney Disease: Estimated GFR < 15 mL/min/1.73m2 Glucose 100 60 - 115 mg/dL [facility] Calcium 9.8 8.4 - 10.2 mg/dL [facility] Bilirubin, Total 0.3 0.0 - 1.0 mg/dL [facility] Aspartate Amino Transferase 27 5 - 31 U/L [facility] Alanine Aminotransferase 27 0 - 31 U/L [facility] Total Protein 7.9 6.5 - 8.0 g/dL [facility] Albumin Level 4.4 3.5 - 5.0 g/dL [facility] Alkaline Phosphatase 98 39 - 117 U/L [facility] Blood Venous blood specimen / Unknown 08/13/2024 12:18 PM EST 08/13/2024 12:55 PM EST us Sharon Bond CAD ADMINISTRATOR LAB BLOOD ORDERABLES Final Resul t [facility] [address], [place] [phone] * Hemoglobin A1c (08/13/2024 12:18 PM EST) Hemoglobin A1c 5.4 <6.0 % [facility] Comment:Hemoglobin A1C Refer ence Range Adults: 4.8 - 6.0 % Non diabetic: < 6.0 % Goal: < 7.0 %Additional Action Suggested: > 8.0 %Note: Hemoglobin A1c results are invalid for patients with abnormal amounts of HbF. Blood transfusions may impact the HbA1c concentration in the patient sample. Estimated Average Glucose 108 mg/dL [facility] Comment:eAG = Estimated ave rage glucose which is %A1C expressed asaverage glucose, using the formula of the G4X-WuteieiKlxjalx Glucose study (ADAG), Diabetes Care, Vol.31,#8,Apr. 2007 Blood Venous blood specimen / Unknown 08/13/2024 12:18 PM EST 08/13/2024 12:55 PM EST us Sharon Bond CAD ADMINISTRATOR LAB BLOOD ORDERABLES Final Resul t [facility] [address] [place] [phone] * (ABNORMAL) CBC auto differential (08/13/2024 12:18 PM EST) White Blood Count 5.9 4.8 - 10.8 X10*3/uL [facility] Red Blood Count 4.54 4.20 - 5.50 X10*6/uL [facility] Hemoglobin 13.7 12.0 - 16.0 g/dl [facility] Hematocrit 39.4 37.0 - 47.0 % [facility] Mean Corpuscular Volume 86.8 80.0 - 98.0 fL [facility] Mean Corpuscular Hemoglobin 30.2 27.0 - 33.0 pg [facility] Mean Corpuscular HGB Conc 34.8 31.0 - 35.0 g/dl [facility] Red Cell Distribution Width 13.2 11.0 - 16.0 % [facility] Platelet Count 328 160 - 400 X10*3/uL [facility] Mean Platelet Volume 10.4 9.4 - 12.3 fL [facility] Neutrophils Percent Auto 49.0 45 - 73 % [facility] Imm Gran Pct Auto 0.2 0.0 - 0.4 % [facility] Lymphocytes Percent Auto 36.7 20 - 40 % [facility] Monocytes Percent Auto 6.1 2 - 11 % [facility] Eosinophils Percent Auto 6.8(H) 0 - 4 % [facility] Basophils Percent Auto 1.2 0 - 2 % [facility] NRBC Pct Auto 0.0 0.0 - 0.2 /100WBC [facility] Neutrophils Absolute Auto 2.9 2.0 - 8.3 x10*3/uL [facility] Imm Gran Abs Auto 0.01 0.00 - 0.03 X10*3/uL [facility] Lymphocytes Absolute Auto 2.2 1.2 - 4.9 X10*3/uL [facility] Monocytes Absolute Auto 0.4 0.1 - 1.2 X10*3/uL [facility] Eosinophils Absolute Auto 0.4 0.0 - 0.4 X10*3/uL [facility] Basophils Absolute Auto 0.1 0.0 - 0.2 X10*3/uL [facility] NRBC Abs Auto 0.000 0.0 - 0.012 X10*3/uL [facility] Blood Venous blood specimen / Unknown 08/13/2024 12:18 PM EST 08/13/2024 12:55 PM EST us Sharon Bond NP LAB BLOOD ORDERABLES Final Resul t [facility] [address] [place] [phone] * HIV-1/2 Antigen and Antibodies, Fourth Generation, with Reflexes (08/13/2024 12:18 PM EST) HIV AB/AG Nonreactive Nonreactive [facility] Comment:HIV-1 p24 Ag and/or HIV-1/HIV-2 Ab not detected.A test result that is nonreactive does not exclude thepossibility of exposure to or infection with HIV-1 and/orHIV-2. Nonreactive results in this assay for individualswith prior exposure to HIV-1 and/or HIV-2 may be due toantigen and antibody levels that are below the limit ofdetection of this assay.The [employer] HIV Ag/Ab Combo assay result andsupplemental assay results should be interpreted inconjunction with the patient's clinical presentation,history and other laboratory results. If the results areinconsistent with clinical evidence, additional testing issuggested to confirm the result. Blood Venous blood specimen / Unknown 08/13/2024 12:18 PM EST 08/13/2024 12:55 PM EST us Sharon Varun CAD ADMINISTRATOR LAB BLOOD ORDERABLES Final Resul t Performing Organization Address City/[facility]/ZIP Co de Phone Number [facility] [address] [place] [address] [phone] * Hepatitis C Antibody with Reflex to HCV, RNA, Quantitative, Real-Time PCR (08/13/2024 12:18 PM EST) Hepatitis C Antibody Nonreactive Nonreactive [facility] Comment:Antibodies to HCV no t detected; does not exclude early acuteHCV infection. Blood Venous blood specimen / Unknown 08/13/2024 12:18 PM EST 08/13/2024 12:55 PM EST us Sharon Bond CAD ADMINISTRATOR LAB BLOOD ORDERABLES Final Resul t Performing Organization Address [facility] Co de Phone Number [facility] [address] [place] [phone] * (ABNORMAL) Prolactin, Dilution Study (08/13/2024 12:18 PM EST) Prolactin, Undiluted 177.3(A) ng/mL [facility] Prolactin, Diluted SEE NOTE ng/mL [facility] Comment:Result confirmed by 1:100 dilution. No high dosehook effect detected. Reference Range Females Non- 3.0-30.0 10.0-209.0 Postmenopausal 2.0-20.0Prolactin dilution studies are done to determine ifthere is a high-dose hook effect (i.e. a non-linearassay response due to a very high concentration ofProlactin). This is reported to occur at Prolactinconcentrations at or above 30,000 ng/mL.This test is not recommended for identifyingmacroprolactin. The [facility], Prolactin, Total and Monomeric is therecommended test (Order code [id number]).THIS TEST WAS PERFORMED AT:[facility] [address] [id number] VIZCARRA MD Blood Venous blood specimen / Unknown 08/13/2024 12:18 PM EST 08/13/2024 12:55 PM EST us Sharon Bond CAD ADMINISTRATOR LAB BLOOD ORDERABLES Final Resul t Performing Organization Address [facility] Co de Phone Number [facility] [address] [place] [phone] * Estradiol (08/13/2024 12:18 PM EST) Estradiol Ultra Sensitive 7 pg/mL [facility] Comment:Female Reference Ran ges for Estradiol, Ultrasensitive (pg/mL): Follicular Phase: 39-375 Luteal Phase: 48-440 Postmenopausal Phase: < or = 10This test was developed and its analytical performancecharacteristics have been determined by [employer].It has not been cleared or approved by FDA. This assay hasbeen validated pursuant to the CLIA regulations and is usedfor clinical purposes.THIS TEST WAS PERFORMED AT:[facility] [id number] [facility] [place] [address]YZOOAROBB ALVAREZ MD,PHD,ADAL Blood Venous blood specimen / Unknown 08/13/2024 12:18 PM EST 08/13/2024 12:55 PM EST us Sharon Bond NP LAB BLOOD ORDERABLES Final Resul t Performing Organization Address [facility] Co de Phone Number [facility] [address] [place] [phone] * FSH (08/13/2024 12:18 PM EST) Follicle Stimulating Hormone 1.7 mIU/mL [facility] Comment:Reference Range Foll icular Phase 2.5-10.2 Mid-cycle Peak 3.1-17.7 Luteal Phase 1.5- 9.1 Postmenopausal 23.0-116.3THIS TEST WAS PERFORMED AT:[facility] [address] [id number] VIZCARRA MD Blood Venous blood specimen / Unknown 08/13/2024 12:18 PM EST 08/13/2024 12:55 PM EST us Sharon Bond NP LAB BLOOD ORDERABLES Final Resul t Performing Organization Address [facility] Co de Phone Number [facility] [address] [place] [phone] * JENS Screen,IFA, with Reflex to Titer and Pattern (08/13/2024 12:18 PM EST) Anti Nuclear Antibody Screen NEGATIVE NEGATIVE [facility] Comment:JENS IFA is a first [...] clinicallysuspected inflammatory myopathies.AC-0: NegativeInternational Consensus on JENS Patterns(https://doi.org/10.1515/rbhy-6514-3402)For additional information, please refer tohttp://education.MovieSet/faq/OWD534(This link is being provided for informational/educational purposes only.)THIS TEST WAS PERFORMED AT:[employer] [place] [id number] VIZCARRA MD JENS Titer TNP [facility] JENS Pattern [facility] JENS TITER 2 (REF LAB) [facility] JENS Pattern 2 [facility] JENS TITER 3 [facility] JENS PATTERN 3 [facility] Blood Venous blood specimen / Unknown 08/13/2024 12:18 PM EST 08/13/2024 12:55 PM EST us Sharon Bond NP LAB BLOOD ORDERABLES Final Resul t Performing Organization Address City/[facility]/ZIP Co de Phone Number [facility] [address] [place] [phone] [phone] * hCG, Total, Quantitative (08/13/2024 12:18 PM EST) HCG Quantitative <2 mIU/mL [facility] Comment:Weeks post LMP Appro ximate hCG(Last Menstrual Period) Range (mIU/ml)3 - 4 weeks 9 - 1304 - 5 weeks 75 - 2,6005 - 6 weeks 850 - 20,8006 - 7 weeks 4000 - 100,2007 - 12 weeks 11,500 - 289,64649 - 16 weeks 18,300 - 137,36943 - 29 weeks (2nd trimester) 1,400 - 53,07654 - 41 weeks (3rd trimester) 940 - [...] ORDERABLES Final Resul t Performing Organization Address City/[facility]/ZIP Co de Phone Number [facility] [address] [place] [phone] * TSH W/Reflex to FT4 (08/13/2024 12:18 PM EST) TSH reflex Free T4 0.60 0.32 - 4.0 uIU/mL [facility] Blood Venous blood specimen / Unknown 08/13/2024 12:18 PM EST 08/13/2024 12:55 PM EST Sharon Bond NP LAB BLOOD ORDERABLES Final Resul t Performing Organization Address City/[facility]/ZIP Co de Phone Number [facility] [address] [place] [phone] documented in this encounter Visit Diagnoses Diagnosis Secondary amenorrhea- Primary Absence of menstruation Chronic fatigue Other malaise and fatigue Obesity (BMI 30.0-34.9) Healthcare maintenance documented in this encounter Additional Health Concerns Assessment Noted Time PHQ-9 Depression Total Score: 7 08/13/20 24 11:41 AM EST documented as of this encounter Care Teams Telephone Sales Representative Relationship Specialty Start Date End Date Aurea Johnson FNP [address] [place] [phone] PCP - General Family Medicine 07/02/24 documented as of this encounter
[2024-11-04 03:44] LABS: Follicle Stimulating Hormone 3.9 mIU/mL; Lutenizing Hormone 5.3 mIU/mL; Prolactin 5.1 ng/mL
[2024-11-10 00:03] LABS: Estradiol Ultra Sensitive 82 pg/mL
== END 2024-11-03 09:11 | disposition home or self-care (01) ==
LOC: HO.LAB 09:10
PROVIDERS: PCP Nurse Practitioner Family; Visit Provider Student in an Organized Health Care Education/Training Program
DX: D35.2 Benign neoplasm of pituitary gland (principal); E22.1 Hyperprolactinemia
CPT/HCPCS: 36415; 82670; 83001; 83002; 84146

== ENCOUNTER 2024-11-09 11:23 | Outpatient (AMB) | payer OTHER, SELFPAY ==
--- NOTE | 2024-11-09 11:26 | MHC.OFFVIS ---
Vital Signs 11/09/24 11:27 Height 5 ft Weight 197 lb 12.074 oz BMI 38.6 BP 120/80 Blood Pressure Location Lt brachial Position Sitting Pulse 77 Pulse Source Pulse Oximeter Pulse Oximetry (%) 96 Oxygen Delivery Method Room Air Intake Visit Reasons: Hyperprolactinemia Intake Note: Patient present today for Hyperprolactinemia office visit. Tongue Binder Required: No Accompanied by: Self / Same As Patient Allergies No Known Allergies Allergy (Verified 11/09/24 11:32) HPI Comments Details: 34-year-old female coming in today for follow up of hyperprolactinemia and pituitary microadenoma. HPI from initial visit Labs from 08/13/2024 showed prolactin level elevated at 177.3. Estradiol level of 7 which is low, with a low normal FSH of 1.7. Normal kidney function. TSH normal at 0.6. Lab work was done as she had not had a menstrual cycle for some time . Pituitary MRI from 08/26/2024 showed a pituitary macroadenoma with a 1.4 cm hypoenhancing mass occupying almost the entire pituitary gland. Trace rightward deviation of the infundibulum. Optic chiasm is normal. Cavernous sinus normal. Started on cabergoline 0.25 mg every Friday started 09/03/24. By PCP. She is tolerating it well without any nausea or vomiting. Vision changes: none Headache: once a week or in 2 weeks, not bothered by it Nipple discharge: none , no breast soreness System Support Administrator history: Menarche: 9 years of age LMP:2020, 3 years Pregnancies : no In a relationship with cis male but not sexually active currently used to use condoms Was on OCP for seven years stopped in , her periods used to be light on that Change in sense of smell: no Change in ring size: feels increased due to gained weight Change in shoe size: none Reports some fatigue, hot flushes on cheeks. Reports hair loss . Reports occasional loose stools. Patient currently denies heat or cold intolerance, palpitation, mood changes, changes in appearance of eyes or vision changes, tremors, increased diaphoresis or dry skin. ? Easy bruising: yes Proximal muscle weakness: none No DM, HTN Left wrist 2005 while playing basket ball Nausea: none Vomiting:none Lightheadedness: none Weight: GAined 50 lbs in the past 5 years No history of heart disease , valvulopathy Works in [employer] with partner Interval history Currently on cabergoline 0.25 mg twice weekly. Friday and Friday Increased on last appointment 09/21/2024. Repeat labs 09/24/2024: Showed prolactin had come down to 30 pg/mL, estradiol was low at 8 within inappropriately normal FSH of 5.3 and LH of 0.6. and otherwise normal pituitary panel. Another set of labs done 11/03/2024 shows prolactin now down to 5.1 pg/mL. Estradiol level pending, normal FSH LH. LMP: 11/06/24 : first period back. No nausea , vomiting, lightheadenss, dizziness Feels have been having low mood Physical exam General: sitting comfortably in no acute distress HEENT: normocephalic/atraumatic, EOM intact, visual oakley grossly intact Neck: supple, symmetrical, no thyromegaly Cardiac: normal heart sounds Pulm: normal breath sounds B/L, no added breath sounds Abd: not distended, no tenderness Extremities: no edema, no signs of myxedema Neuro: AAO x3, Speech: normal, no facial droop, moving all 4 extremities Laboratory Tests 03/02/23 08/13/24 22:05 12:18 Creatinine 0.82 Estimated GFR > 60 TSH 0.60 Estradiol Ultra LCMSMS 7 FSH 1.7 Prolactin Undiluted 177.3 H Beta HCG, Quant < 2 Urine Test NEGATIVE Laboratory Tests 08/13/24 09/24/24 09/24/24 12:18 09:22 09:44 TSH 1.01 Free T4 1.04 Estradiol Ultra LCMSMS 7 8 FSH 1.7 5.3 Luteinizing Hormone 0.6 Prolactin Undiluted 177.3 H 30.0 Prolactin Total Testosterone 13 Fr Testosterone Dialys 1.9 DHEA Sulfate 92 Somatomedin-C 151 Somato-C Z-Score Female 0.1 Random Cortisol 10.0 ACTH 15 Urine Total Volume 1500 Ur Creatinine 24 Hour 1.12 Ur Free Cortisol 24 Hr 17.3 11/03/24 09:26 TSH Free T4 Estradiol Ultra LCMSMS FSH 3.9 Luteinizing Hormone 5.3 Prolactin Undiluted Prolactin 5.1 Total Testosterone Fr Testosterone Dialys DHEA Sulfate Somatomedin-C Somato-C Z-Score Female Random Cortisol ACTH Urine Total Volume Ur Creatinine 24 Hour Ur Free Cortisol 24 Hr MR BRAIN WITHOUT AND WITH CONTRAST 08/26/24 CLINICAL INFORMATION: Secondary abdomen area. Prolactin level 177.3 COMPARISON: None available. TECHNIQUE: Multiplanar, multisequence MRI of the brain was obtained before and after the intravenous administration of 4.5 mL Gadavist. FINDINGS: The sella is expanded and protrudes into the left sphenoid sinus. There is a 1.1 x 1.4 x 1.4 cm left paracentral hypoenhancing mass occupying almost the entire pituitary gland. Trace rightward deviation of the infundibulum. The suprasellar cistern is normal. The optic chiasm and prechiasmatic optic nerves are normal. The cavernous sinuses are normal. No abnormal intracranial enhancement. No acute intracranial hemorrhage or infarct. No edema, midline shift or hydrocephalus. No acute extra-axial fluid collections. The osseous structures are unremarkable. The pineal gland and remaining midline structures are unremarkable. No orbital pathology. The paranasal sinuses and mastoid air cells are clear. 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 -No acute intracranial abnormality. Electronically signed by: Carrillo Celeste MD 08/26/2024 01:18 PM [facility] Medical History (Updated 09/21/24 @ 10:51 by Oanh Meza MD) Pituitary macroadenoma Hyperprolactinemia Environmental allergies IBS (irritable bowel syndrome) Surgical History History of laparoscopic cholecystectomy (~03/03/23) Family History Mother Non Hodgkin's lymphoma Father No known health problems Social History Alcohol intake: never Patient Tobacco Use Status: Never used Tobacco Physical Exam Vital Signs: Last Vital Signs Pulse 77 11/09/24 11:27 BP 120/80 11/09/24 11:27 Pulse Ox 96 11/09/24 11:27 Oxygen Delivery Method Room Air 11/09/24 11:27 BMI result Body Mass Index 38.6 Assessment & Plan Assessment & Plan (1) Hyperprolactinemia: Code(s): E22.1 - Hyperprolactinemia Category: Medical Plan: 34-year-old female here today for initial evaluation of hyperprolactinemia and pituitary microadenoma. Labs from 08/13/2024 showed prolactin level elevated at 177.3. Estradiol level of 7 which is low, with a low normal FSH of 1.7. Normal kidney function. TSH normal at 0.6. Lab work was done as she had not had a menstrual cycle for some time . Pituitary MRI from 08/26/2024 showed a pituitary macroadenoma with a 1.4 cm hypoenhancing mass occupying almost the entire pituitary gland. Trace rightward deviation of the infundibulum. Optic chiasm is normal. Cavernous sinus normal. Given this is a macroadenoma, we had placed a referral to Ophthalmology for visual field testing. Grossly visual oakley are intact on my exam. However patient has not heard back from Ophthalmology. Again given contact today and sent message to staff follow up on the status of this referral. She was started on cabergoline 0.25 mg once a week in August, and I increased it to twice weekly in September 2024. Prolactin level has come down to 5 pg/mL on most recent labs done in October 2024. Patient also started having her periods, after 3 years of no menstruation. 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 Otherwise pituitary panel was unremarkable, 24 hour urine cortisol level was normal. She does not have any bothersome nipple discharge, she is not trying to get however given no menstrual cycles, we agree with continuing treatment with Cabergoline. We will plan to repeat her MRI in 6 months from initiation of treatment which would be in February 2025. I also discussed with the patient today that there has been a shift in guidelines since 2022 where in a young female with pituitary adenoma, transsphenoidal resection is also an option especially given the low risk of complications and higher rates of remission. Patient is interested in meeting with Neurosurgery to discuss her options. I did tell her that since she is tolerating the Cabergoline rather well, with not any significant side effects that are specific to the medication though she is having some increased depression, medical therapies also totally reasonable option for her. We will send referral regardless. Plan: -continue cabergoline 0.25 mg twice a week -follow up on estradiol level from October 2024 -plan to repeat labs prior to next appointment in with a prolactin level as well as estradiol and FSH and LH -reiterated importance of following up with ophthalmology for evaluation of visual oakley -MRI pituitary would be repeated February 2025 , ordered today -neurosurgery referral placed -follow up in 3 months Patient was counseled today regarding side effects of cabergoline including nausea, orthostatic hypotension. Patient does take the medication in the evening with a meal to avoid these. Also counseled regarding side effects of impulse control disorder and cardiac valvulopathy. Given low dosage we will not obtain echocardiogram in her. Normal kidney function noted prior to starting medication. Patient was also counseled regarding restorationist of menses and increased chance of and to use reliable contraceptive method if she is trying to prevent . Was also counseled to inform us if she has a positive test. Although available evidence suggests cabergoline use early in does not cause harm to the fetus, it is recommended that dopamine agonist therapy be discontinued once is discovered (ES [[place] 2010]; TERA [[place] 2020]). (2) Pituitary macroadenoma: Code(s): D35.2 - Benign neoplasm of pituitary gland Category: Medical Plan: See above Plan I spent 30 minutes in reviewing the record, seeing the patient and documenting in the medical record. Orders: Orders MR head/brain wo/w con 3 Months D35.2 - Benign neoplasm of pituitary gland, E22.1 - Hyperprolactinemia Follicle Stimulating Hormone 3 Months D35.2 - Benign neoplasm of pituitary gland, E22.1 - Hyperprolactinemia Estradiol Ultra Sensitive 3 Months D35.2 - Benign neoplasm of pituitary gland, E22.1 - Hyperprolactinemia Lutenizing Hormone 3 Months D35.2 - Benign neoplasm of pituitary gland, E22.1 - Hyperprolactinemia Prolactin 3 Months D35.2 - Benign neoplasm of pituitary gland, E22.1 - Hyperprolactinemia Referrals Neurosurgery Referral D35.2 - Benign neoplasm of pituitary gland Patient Instructions: Follow up on eye doctor appointment for evaluation of visual oakley Continue cabergoline 0.25 mg twice weekly Talk to primary care physician about depression Neurosurgical referral placed for [facility] for Dr. Naila Galindo, our staff will follow up on that with the you Do blood work in 3 months prior to your next appointment, orders placed Do MRI prior to your follow up in 3 months, order placed, someone should call you to schedule this, if they do not, you call and schedule Coding Level of Care Code Est Pt Level 4 (50621) Diagnoses Hyperprolactinemia E22.1 Pituitary macroadenoma D35.2 Time Spent (min) 30
[2024-11-09 11:27] VITALS: BP 120/80; PULSE 77; O2SAT 96; BMI 38.6
--- OUTSIDE RECORDS SUMMARY | 2024-11-09 14:22 | XMS_ITS | Clinical Summary ---
Author Organization [employer] Address [address] [facility] [address] [place] [address] Care Team Providers Care Regional Business Development Manager Name Role Phone Aurea Johnson SENIOR MANAGER ASSET PROTECTION Primary Care Provider [phone] Allergies No known active allergies Medications omeprazole [...] provider if having challenges in getting an supervisor toy parts former appointment Assessment & Plan (09/09/2024 4:09 PM EST): Plan Patient education on prolactinoma Prolactin, Undiluted ng/mL 177.3 Abnormal Start cabergoline 0.5 mg weekly Patient teaching possible side effects of medication Keep appointment with laborer wharf Recheck prolactin level trend in 4 weeks Follow up in 4 weeks Panic 08/24/2024 Health care maintenance 08/18/2024 Assessment & Plan (08/18/2024 10:13 PM EST): Obese Secondary amenorrhea Elevated prolactin HCG negative Plan Transvaginal and Pelvic US MRI brain Referral to welding foreman and neurosurgery Diet and exercise rehabilitation counselor STI screening Follow up in 4 weeks to review lab and imaging To schedule pap smear at next visit Hyperprolactinemia 08/18/2024 Assessment & Plan (08/18/2024 2:00 PM EST): Prolactin 177.3 ng/mL 08/14/2024 D/dx prolactinoma, PCOS Plan Referral to neurosurgeon Referral lead software test engineer MRI brain Hx of cholecystectomy 08/18/2024 Secondary [...] Description 10/01/2024 1:45 PM EST Office Visit [facility] [address] [place] [phone] Aurea Johnson FNP Food allergy (Primary Dx); Prolactinoma (CMS/HCC); Dietary counseling; Exercise counseling; Obesity (BMI 30.0-34.9) 09/21/[address] [address] Marianela Atkins MA Chart Prep 09/14/[address] [address] Sánchez Ely, LIZ 09/07/[address] [address] Montserrat Harrington, LIZ 09/03/2024 1:45 PM EST Office Visit [address] [address] Aurea Johnson FNP Prolactinoma ([facility]/HCC) (Primary Dx) 09/03/2024 Travel 08/31/[address] [address] Aurea Johnson FNP patient survey 08/31/[address] [address] Marianela Atkins MA Chart Prep 08/30/[address] [address] Sharon Bond NP 08/25/2024 Telephone [facility] [address] [place] [phone] Aurea Johnson FNP 08/18/[address] [address] Aurea Johnson FNP Call Back Request 08/13/2024 10:30 AM EST Office Visit [address] [address] Aurea Johnson FNP Secondary amenorrhea (Primary Dx); Health care maintenance; Hyperprolactinemia (CMS/HCC) 08/13/2024 Orders Only [address] [address] Sharon Bond NP Secondary amenorrhea (Primary Dx); Chronic fatigue; Obesity (BMI 30.0-34.9); Healthcare maintenance 08/12/2024 Telephone [facility] [address] [place] [address] Marianela Atkins MA Chart Prep from Last [...] Description 11/26/2024 1:30 PM EDT Office Visit [facility] [address] [place], [place] [phone] Aurea Johnson FNP [address] [place], [place] [phone] Health Maintenance Due Date Last Done Comments [...] Priority Date/Time Associated Diagnosis Comments PROLACTIN Routine 11/03/2024 9:26 AM EST Secondary amenorrhea LH Routine 11/03/2024 9:26 AM EST Secondary amenorrhea FSH Routine 11/03/2024 9:26 AM EST Secondary amenorrhea PROLACTIN Routine 09/24/2024 [...] period is included. Prolactin, Undiluted 30.0 ng/mL [facility] Prolactin, Diluted TNP ng/mL [facility] Comment:TEST(S) NOT PERFORME D: PROLACTIN, DILUTEDUNABLE TO REPORTInitial testing necessitateda repeat, but there wasinsufficient sample to perform.THIS TEST WAS PERFORMED AT:[employer] [place] [phone] VIZCARRA MD 09/24/2024 9:44 AM EST 09/24/2024 9:44 AM EST Generic External Data Provider LAB BLOOD ORDERAB LES Final Result Performing Organization Address [facility] Co de Phone Number [facility] [address] [place] [phone] * Cortisol Random (09/24/2024 9:44 AM EST) Cortisol Random 10.0 ug/dL [facility] Comment:Reference Range*: Be fore 10 am 6.2-19.4 ug/dL After 5 pm 2.3-11.9 ug/dL*Please interpret above results accordingly.This test was performed using the [employer] chemiluminescentmethod. Values obtained from different assay methods cannotbe used interchangeably.Patients receiving fludrocortisone, prednisolone orprednisone may show artificially elevated cortisol valuesdue to cross-reactivity. 09/24/2024 9:44 AM EST 09/24/2024 9:44 AM EST us Generic External Data Provider LAB BLOOD ORDERAB LES Final Result Performing Organization Address [facility]/ZIP Co de Phone Number [facility] [address] [place] [phone] * Prolactin (09/24/2024 9:44 AM EST) Prolactin TNP [facility] Comment:DUPLICATE 09/24/2024 9:44 AM EST 09/24/2024 9:44 AM EST Generic External Data Provider LAB BLOOD ORDERAB LES Final Result Performing Organization Address City/[facility]/ZIP Co de Phone Number [facility] [address] [place] [phone] * IGF-1, LC/MS (09/24/2024 9:44 AM EST) [facility] IGF 1, LC/MS 151 53 - 331 ng/mL [facility] Z Score (Male) [facility] Z Score (Female) 0.1 -2.0 - 2.0 SD [facility] Comment:This test was develo ped and its analytical performancecharacteristics have been determined by [employer].It has not been cleared or approved by FDA. This assay hasbeen validated pursuant to the CLIA regulations and is usedfor clinical purposes.THIS TEST WAS PERFORMED AT:[employer]/[id number] [place] [address]LHQMBROBB ALVAREZ MD,PHD,ADAL 09/24/2024 9:44 AM EST 09/24/2024 9:44 AM EST Generic External Data Provider LAB BLOOD ORDERAB LES Final Result Performing Organization Address City/[facility]/ZIP Co de Phone Number [facility] [address] [place] [phone] * Growth Hormone (GH) (09/24/2024 9:44 AM EST) [facility] Growth Hormone TNP ng/mL [facility] Comment:UNABLE TO REPORTInit ial testing necessitateda repeat, but there wasinsufficient sample to perform.THIS TEST WAS PERFORMED AT:[employer] [address] [address]SLEWJCHRISSY VIZCARRA MD 09/24/2024 9:44 AM EST 09/24/2024 9:44 AM EST Generic External Data Provider LAB BLOOD ORDERAB LES Final Result Performing Organization Address [facility] Co de Phone Number [facility] [address] [place] [phone] * DHEA Sulfate (09/24/2024 9:44 AM EST) DHEA Sulfate 92 19 - 237 mcg/dL [facility] Comment:THIS TEST WAS PERFOR MED AT:[employer] [address] [id number] VIZCARRA MD 09/24/2024 9:44 AM EST 09/24/2024 9:44 AM EST Generic External Data Provider LAB BLOOD ORDERAB LES Final Result Performing Organization Address [facility] de Phone Number [facility] [address] [place] [phone] * Estradiol (09/24/2024 9:44 AM EST) Only the most recent of2 resultswithin the time period is included. Estradiol Ultra Sensitive 8 pg/mL [facility] Comment:Female Reference Ran ges for Estradiol, Ultrasensitive (pg/mL): Follicular Phase: 39-375 Luteal Phase: 48-440 Postmenopausal Phase: < or = 10This test was developed and its analytical performancecharacteristics have been determined by [employer].It has not been cleared or approved by FDA. This assay hasbeen validated pursuant to the CLIA regulations and is usedfor clinical purposes.THIS TEST WAS PERFORMED AT:[employer]/[address] [id number] [place] [address]JQTWPROBB ALVAREZ MD,PHD,ADAL 09/24/2024 9:44 AM EST 09/24/2024 9:44 AM EST Generic External Data Provider LAB BLOOD ORDERAB LES Final Result Performing Organization Address [facility] Co de Phone Number [facility] [address] [place] [phone] * ACTH, Plasma (09/24/2024 9:44 AM EST) ACTH, Plasma 15 6 - 50 pg/mL [facility] Comment:Reference range appl ies only to specimens collectedbetween 7am-10am.THIS TEST WAS PERFORMED AT:[employer] [id number] [place] [address]JEROQVESAQIB SMITH MD,PHD 09/24/2024 9:44 AM EST 09/24/2024 9:44 AM EST Generic External Data Provider LAB BLOOD ORDERAB LES Final Result Performing Organization Address [facility] Co de Phone Number [facility] [address] [place] [phone] * Testosterone, Free (Dialysis) And Total, MS (09/24/2024 9:44 AM EST) Pathologist [facility] Testosterone, Total 13 2 - 45 ng/dL [facility] Comment:For additional infor andie, please refer tohttp://education.Nurego/faq/[email or web address](This link is being provided for informational/educational purposes only.)This test was developed and its analytical performancecharacteristics have been determined by [facility] [place]. It hasnot been cleared or approved by the U.S. Food and DrugAdministration. This assay has been validated pursuantto the CLIA regulations and is used for clinicalpurposes. Testosterone, Free 1.9 0.1 - 6.4 pg/mL [facility] Comment:This test was develo ped and its analytical performancecharacteristics have been determined by [employer] [place], [place]. It hasnot been cleared or approved by the U.S. Food and DrugAdministration. This assay has been validated pursuantto the CLIA regulations and is used for clinicalpurposes.THIS TEST WAS PERFORMED AT:[employer] [place] [address]BSKELVXSAQIB SMITH MD,PHD 09/24/2024 9:44 AM EST 09/24/2024 9:44 AM EST us Generic External Data Provider LAB BLOOD ORDERAB LES Final Result Performing Organization Address [facility] Phone Number [facility] [address] [place] [phone] * TSH (09/24/2024 9:44 AM EST) Thyroid Stimulating Hormone 1.01 0.32 - 4.0 uIU/mL [facility] Comment:TSH 3rd Generation ( [facility]) 09/24/2024 9:44 AM EST 09/24/2024 9:44 AM EST Generic External Data Provider LAB BLOOD ORDERAB LES Final Result Performing Organization Address [facility] de Phone Number [facility] [address] [place] [phone] * T4, Free (09/24/2024 9:44 AM EST) Free T4 (Free Thyroxine) 1.04 0.71 - 1.85 ng/dL [facility] 09/24/2024 9:44 AM EST 09/24/2024 9:44 AM EST Generic External Data Provider LAB BLOOD ORDERAB LES Final Result Performing Organization Address [facility] de Phone Number [facility] [address] [place] [phone] * LH (09/24/2024 9:44 AM EST) Lutenizing Hormone 0.6 mIU/mL [facility] Comment:Reference Range Foll icular Phase 1.9-12.5 Mid-Cycle Peak 8.7-76.3 Luteal Phase 0.5-16.9 Postmenopausal 10.0-54.7THIS TEST WAS PERFORMED AT:[facility] [address] [address]FNLYKPAUL VIZCARRA MD 09/24/2024 9:44 AM EST 09/24/2024 9:44 AM EST Generic External Data Provider LAB BLOOD ORDERAB LES Final Result Performing Organization Address [facility] Co de Phone Number [facility] [address] [place] [phone] * FSH (09/24/2024 9:44 AM EST) Only the most recent of2 resultswithin the time period is included. Follicle Stimulating Hormone 5.3 mIU/mL [facility] Comment:Reference Range Foll icular Phase 2.5-10.2 Mid-cycle Peak 3.1-17.7 Luteal Phase 1.5- 9.1 Postmenopausal 23.0-116.3THIS TEST WAS PERFORMED AT:[facility] [address] [address]LYEAUCHRISSY VIZCARRA MD 09/24/2024 9:44 AM EST 09/24/2024 9:44 AM EST Generic External Data Provider LAB BLOOD ORDERAB LES Final Result Performing Organization Address City/[facility]/ZIP Co de Phone Number [facility] [address] [place] [phone] * (ABNORMAL) Basic Metabolic Panel (09/24/2024 9:44 AM EST) Sodium 137 135 - 145 mmol/L [facility] Potassium 4.1 3.3 - 5.1 mmol/L [facility] Chloride 110(H) 96 - 108 mmol/L [facility] Carbon Dioxide 22 22 - 29 mmol/L [facility] Anion Gap 9(L) 12 - 20 [facility] Urea Nitrogen (BUN) 15 9 - 16 mg/dL [facility] Creatinine, Serum 0.77 0.5 - 1.4 mg/dL [facility] Estimated Glomerular Filt Rate >60 [facility] Comment:Chronic Kidney Disea se: Estimated GFR < 60 mL/min/1.93f2Ajwzpz Kidney Disease: Estimated GFR < 15 mL/min/1.73m2 Glucose 100 60 - 115 mg/dL [facility] Calcium 9.0 8.4 - 10.2 mg/dL [facility] 09/24/2024 9:44 AM EST 09/24/2024 9:44 AM EST us Generic External Data Provider LAB BLOOD ORDERAB LES Final Result [facility] [address] [place] [phone] * Cortisol, Free, 24 Hour Urine (09/24/2024 9:22 AM EST) Cortisol, Free, 24 hr Urine 17.3 4.0 - 50.0 mcg/24 h [facility] Comment:This test was develo ped and its analytical performancecharacteristics have been determined by [employer].It has not been cleared or approved by FDA. This assay hasbeen validated pursuant to the CLIA regulations and is usedfor clinical purposes. Creatinine, Urine 1.12 0.50 - 2.15 g/24 h [facility] Comment:THIS TEST WAS PERFOR MED AT:[employer]/[address] [id number] [place] [id number] ALVAREZ MD,PHD,ADAL Total Volume 1500 mL [facility] 09/24/2024 9:22 AM EST 09/24/2024 10:04 AM EST Narrative [facility] - 09/29/2024 9:58 PM EST [id number] us Generic External Data Provider LAB BLOOD ORDERAB LES Final Result Performing Organization Address [facility] de Phone Number [facility] [address] [place] [phone] * CREATININE, 24 HR GROUP (09/24/2024 8:30 AM EST) Creatinine, 24 Hour Urine 1.1 1.0 - 2.0 G/Day [facility] Creatinine, Urine 71.14 [facility] Urine Total Volume 24 Hour 1,500 mL [facility] 09/24/2024 8:30 AM EST 09/24/2024 9:59 AM EST Narrative [facility] - 09/24/2024 10:50 AM EST [id number] us Generic External Data Provider LAB URINE ORDERAB LES Final Result Performing Organization Address [facility] Phone Number [facility] [address] [place] [phone] * Mr Brain w/ and w/o Contrast (08/26/2024 11:29 AM EST) Anatomical Region Laterality Modality Brain Magnetic Resonan ce 08/26/2024 11:2 9 AM EST Narrative 08/26/2024 1:21 PM EST ? [facility] ?[address] ?[place] [address] ? Magnetic Resonance Report ? Signed ? Patient: Destinee Alexander ?MR#: [id number] ?? [id number] ? : 1990 ?Acct:[id number] ? Age/Sex: 34 / F ?ADM Date: 12/19/24 ? Loc: HO.MRI ? Attending Dr: Aurea ARRIOLA ? Ordering Physician: Aurea Johnson ?? Date of Service: 08/26/24 ?? Procedure(s): MR head/brain wo/w con ?? Accession Number(s): [id number] ? cc: Aurea Johnson ? EXAMINATION: ?? MR BRAIN WITHOUT AND [...] DD/ 1129 ? TD/TT: 08/26/24 1230 ? Shoe Repair Cobbler: ? Procedure Note Viridiana, Lenny - 08/26/[address] [address] Magnetic Resonance Report Signed Patient: Destinee Alexander LMR#: [id number] : 1990Acct:[id number] Age/Sex: 34 / FADM Date: 08/26/24 Loc: HO.MRI Attending Dr: Aurea ARRIOLA Ordering Physician: Aurea Johnson Date of Service: 08/26/24 Procedure(s): MR head/brain wo/w con Accession Number(s): [id number] cc: Aurea Johnson EXAMINATION: MR BRAIN WITHOUT [...] 08/26/24 1318 DD/ 1129 TD/TT: 08/26/24 1230 Shoe Repair Cobbler: us Aurea ARRIOLA IMG MRI PROCEDURES Final Resul t * US Pelvis Transvaginal (08/20/2024 2:56 PM EST) Anatomical Region Laterality Modality Pelvis Ultrasound 08/20/2024 2:56 PM EST Narrative 09/29/2024 5:39 AM EST ? [facility] ?[address] ?[place] [address] ? Ultrasound Report ? Signed ? Patient: Benjamin,Destinee L ?MR#: [id number] ?? [id number] ? : 1990 ?Acct:[id number] ? Age/Sex: 34 / F ?ADM Date: 08/20/24 ? Loc: HO.US ? Attending Dr: Aurea ARRIOLA ? Ordering Physician: Aurea Johnson ?? Date of Service: 08/20/24 ?? Procedure(s): US pelvic and transvaginal ?? Accession Number(s): [id number] ? cc: Aurea Johnson ? EXAMINATION: ? [...] DD/ 1456 ? TD/TT: 08/20/24 1508 ? Shoe Repair Cobbler: ? Procedure Note Donotuseinterpreter, Image - 09/29/2024 [place] [address] Ultrasound Report Signed Patient: Destinee Alexander LMR#: [id number] : 1990Acct:[id number] Age/Sex: 34 / FADM Date: 08/20/24 Loc: HO.US Attending Dr: Aurea ARRIOLA Ordering Physician: Aurea Johnson Date of Service: 08/20/24 Procedure(s): US pelvic and transvaginal Accession Number(s): [id number] cc: Aurea Johnson EXAMINATION: US PELVIS CLINICAL [...] 09/29/24 0536 DD/ 1456 TD/TT: 08/20/24 1508 Shoe Repair Cobbler: Aurea ARRIOLA IMG US PROCEDURES Final Result * (ABNORMAL) POCT Urinalysis (08/13/2024 12:36 PM EST) Color, UA Yellow Clarity, UA Clear Glucose, UA Negative Bilirubin, UA Negative Ketones, UA Negative Spec Grav, UA 1.025 Blood, UA Positive(A) Negative, None Detected Comment:Trace-lysed pH, UA 6.5 Protein, UA Negative Urobilinogen, UA 0.2 Leukocytes, UA Negative Negative, Rare, Trace Nitrite, UA Negative Negative, None Detected QC Media Lot # [id number] Lot# Expiration Date Urine 08/13/2024 12:3 6 PM EST Aurea ARRIOLA POINT OF CARE TEST ENTER/EDIT ORDERABLES Final Result * TSH W/Reflex to FT4 (08/13/2024 12:18 PM EST) Pathologist [facility] TSH reflex Free T4 0.60 0.32 - 4.0 uIU/mL [facility] Blood Venous blood specimen / Unknown 08/13/2024 12:18 PM EST 08/13/2024 12:55 PM EST Sharon Bond MEDIA PLANNER LAB BLOOD ORDERABLES Final Resul t [facility] [address] [place] [phone] * (ABNORMAL) CBC auto differential (08/13/2024 12:18 PM EST) Pathologist [facility] White Blood Count 5.9 4.8 - 10.8 X10*3/uL [facility] Red Blood Count 4.54 4.20 - 5.50 X10*6/uL [facility] Hemoglobin 13.7 12.0 - 16.0 g/dl [facility] Hematocrit 39.4 37.0 - 47.0 % [facility] Mean Corpuscular Volume 86.8 80.0 - 98.0 fL [facility] Mean Corpuscular Hemoglobin 30.2 27.0 - 33.0 pg [facility] Mean Corpuscular HGB Conc 34.8 31.0 - 35.0 g/dl [facility] Red Cell Distribution Width 13.2 11.0 - 16.0 % [facility] Platelet Count 328 160 - 400 X10*3/uL [facility] Mean Platelet Volume 10.4 9.4 - 12.3 fL [facility] Neutrophils Percent Auto 49.0 45 - 73 % [facility] Imm Gran Pct Auto 0.2 0.0 - 0.4 % [facility] Lymphocytes Percent Auto 36.7 20 - 40 % [facility] Monocytes Percent Auto 6.1 2 - 11 % [facility] Eosinophils Percent Auto 6.8(H) 0 - 4 % [facility] Basophils Percent Auto 1.2 0 - 2 % [facility] NRBC Pct Auto 0.0 0.0 - 0.2 /100WBC [facility] Neutrophils Absolute Auto 2.9 2.0 - 8.3 x10*3/uL [facility] Imm Gran Abs Auto 0.01 0.00 - 0.03 X10*3/uL [facility] Lymphocytes Absolute Auto 2.2 1.2 - 4.9 X10*3/uL [facility] Monocytes Absolute Auto 0.4 0.1 - 1.2 X10*3/uL [facility] Eosinophils Absolute Auto 0.4 0.0 - 0.4 X10*3/uL [facility] Basophils Absolute Auto 0.1 0.0 - 0.2 X10*3/uL [facility] NRBC Abs Auto 0.000 0.0 - 0.012 X10*3/uL [facility] Blood Venous blood specimen / Unknown 08/13/2024 12:18 PM EST 08/13/2024 12:55 PM EST Sharon Bond NP LAB BLOOD ORDERABLES Final Resul t Performing Organization Address [facility] de Phone Number [facility] [address] [place] [phone] * Hepatitis C Antibody with Reflex to HCV, RNA, Quantitative, Real-Time PCR (08/13/2024 12:18 PM EST) Hepatitis C Antibody Nonreactive Nonreactive [facility] Comment:Antibodies to HCV no t detected; does not exclude early acuteHCV infection. Blood Venous blood specimen / Unknown 08/13/2024 12:18 PM EST 08/13/2024 12:55 PM EST Sharon Bond NP LAB BLOOD ORDERABLES Final Resul t Performing Organization Address [facility] Phone Number [facility] [address] [place] [phone] * Hepatitis B surface antigen, EIA (08/13/2024 12:18 PM EST) Hepatitis B Surface Ag Negative Negative [facility] Blood Venous blood specimen / Unknown 08/13/2024 12:18 PM EST 08/13/2024 12:55 PM EST Sharon Bond NP LAB BLOOD ORDERABLES Final Resul t Performing Organization Address [facility] de Phone Number [facility] [address] [place] [phone] * Hepatitis B Core Antibody, Total (08/13/2024 12:18 PM EST) Hepatitis B Core Antibody Nonreactive Nonreactive [facility] Blood Venous blood specimen / Unknown 08/13/2024 12:18 PM EST 08/13/2024 12:55 PM EST Sharon Bond NP LAB BLOOD ORDERABLES Final Resul t Performing Organization Address City/[facility]/ZIP Co de Phone Number [facility] [address] [place] [phone] * HIV-1/2 Antigen and Antibodies, Fourth Generation, with Reflexes (08/13/2024 12:18 PM EST) HIV AB/AG Nonreactive Nonreactive [facility] Comment:HIV-1 p24 Ag and/or HIV-1/HIV-2 Ab not detected.A test result that is nonreactive does not exclude thepossibility of exposure to or infection with HIV-1 and/orHIV-2. Nonreactive results in this assay for individualswith prior exposure to HIV-1 and/or HIV-2 may be due toantigen and antibody levels that are below the limit ofdetection of this assay.The [employer]able HIV Ag/Ab Combo assay result andsupplemental assay results should be interpreted inconjunction with the patient's clinical presentation,history and other laboratory results. If the results areinconsistent with clinical evidence, additional testing issuggested to confirm the result. Blood Venous blood specimen / Unknown 08/13/2024 12:18 PM EST 08/13/2024 12:55 PM EST Sharon Bond NP LAB BLOOD ORDERABLES Final Resul t Performing Organization Address City/[facility]/ZIP Co de Phone Number [facility] [address] [place] [phone] * Hepatitis B Surface Antibody, Qualitative (08/13/2024 12:18 PM EST) Pathologist [facility] ~Hepatitis B Surface Antibody REACTIVE Nonreactive [facility] Comment:REACTIVE: > 11.99 mI U/mL Blood Venous blood specimen / Unknown 08/13/2024 12:18 PM EST 08/13/2024 12:55 PM EST Sharon Graef MEDIA PLANNER LAB BLOOD ORDERABLES Final Resul t Performing Organization Address [facility]/ZIP Co de Phone Number [facility] [address] [place] [phone] [phone] * JENS Screen,IFA, with Reflex to Titer and Pattern (08/13/2024 12:18 PM EST) Anti Nuclear Antibody Screen NEGATIVE NEGATIVE [facility] Comment:JENS IFA is a first [...] clinicallysuspected inflammatory myopathies.AC-0: NegativeInternational Consensus on JENS Patterns(https://doi.org/10.1515/opaw-0083-2305)For additional information, please refer tohttp://education.ONL Therapeutics/faq/[id number](This link is being provided for informational/educational purposes only.)THIS TEST WAS PERFORMED AT:[employer] [place] [id number] VIZCARRA MD JENS Titer [facility] Pattern [facility] JENS TITER 2 (REF LAB) [facility] JENS Pattern 2 [facility] JENS TITER 3 [facility] JENS PATTERN 3 [facility] Blood Venous blood specimen / Unknown 08/13/2024 12:18 PM EST 08/13/2024 12:55 PM EST Sharon Bond MEDIA PLANNER LAB BLOOD ORDERABLES Final Resul t Performing Organization Address [facility]/ZIP Co de Phone Number [facility] [address] [place] [address] [phone] * hCG, Total, Quantitative (08/13/2024 12:18 PM EST) HCG Quantitative <2 mIU/mL [facility] Comment:Weeks post LMP Appro ximate hCG(Last Menstrual Period) Range (mIU/ml)3 - 4 weeks 9 - 1304 - 5 weeks 75 - 2,6005 - 6 weeks 850 - 20,8006 - 7 weeks 4000 - 100,2007 - 12 weeks 11,500 - 289,93367 - 16 weeks 18,300 - 137,96018 - 29 weeks (2nd trimester) 1,400 - 53,00272 - 41 weeks (3rd trimester) 940 - [...] NP LAB BLOOD ORDERABLES Final Resul t [facility] [address] [place] [phone] * Hemoglobin A1c (08/13/2024 12:18 PM EST) Hemoglobin A1c 5.4 <6.0 % [facility] Comment:Hemoglobin A1C Refer ence Range Adults: 4.8 - 6.0 % Non diabetic: < 6.0 % Goal: < 7.0 %Additional Action Suggested: > 8.0 %Note: Hemoglobin A1c results are invalid for patients with abnormal amounts of HbF. Blood transfusions may impact the HbA1c concentration in the patient sample. Estimated Average Glucose 108 mg/dL [facility] Comment:eAG = Estimated ave rage glucose which is %A1C expressed asaverage glucose, using the formula of the J5F-GilifsqWuyymtw Glucose study (ADAG), Diabetes Care, Vol.31,#8,Apr. 2007 Blood Venous blood specimen / Unknown 08/13/2024 12:18 PM EST 08/13/2024 12:55 PM EST us Sharon Bond MEDIA PLANNER LAB BLOOD ORDERABLES Final Resul t Performing Organization Address [facility] Co de Phone Number [facility] [address] [place] [phone] * (ABNORMAL) Lipid Panel, Standard (08/13/2024 12:18 PM EST) Triglycerides 182(H) <150 mg/dL [facility] Comment:Desirable Triglyceri de: less than 150 mg/dLBorderline High Triglyceride 150-199 mg/dLHigh Triglyceride: 200-499 mg/dLVery High Triglyceride: greater than or equal to 5OO mg/dL Cholesterol 252(H) <200 mg/dL [facility] Comment:Desirable Cholestero l: less than 200 mg/dLBorderline High Cholesterol: 200-239 mg/dLHigh Cholesterol: greater than 239 mg/dL LDL Cholesterol Calculated 175(H) <100 mg/dL [facility] Comment:Desirable LDL: less than 100 mg/dLNear Optimal/Above Optimal LDL: 110- 129 mg/dLBorderline High LDL: 130-159 mg/dLHigh LDL: 160-189 mg/dLVery High LDL: greater than or equal to 190 mg/dL HDL Cholesterol 41 >40 mg/dL [facility] Comment:Desirable HDL: great er than 40 mg/dL Note: This HDL assay may give artificially low results in patients with liver disease. Blood Venous blood specimen / Unknown 08/13/2024 12:18 PM EST 08/13/2024 12:55 PM EST us Sharon Bond MEDIA PLANNER LAB BLOOD ORDERABLES Final Resul t Performing Organization Address [facility]/ZIP Co de Phone Number [facility] [address] [place] [phone] * Comprehensive Metabolic Panel (08/13/2024 12:18 PM EST) Sodium 139 135 - 145 mmol/L [facility] Potassium 4.0 3.3 - 5.1 mmol/L [facility] Chloride 105 96 - 108 mmol/L [facility] Carbon Dioxide 26 22 - 29 mmol/L [facility] Anion Gap 12 12 - 20 [facility] Urea Nitrogen (BUN) 11 9 - 16 mg/dL [facility] Creatinine, Serum 0.82 0.5 - 1.4 mg/dL [facility] Estimated Glomerular Filt Rate >60 [facility] Comment:Chronic Kidney Disea se: Estimated GFR < 60 mL/min/1.29x0Ugtagd Kidney Disease: Estimated GFR < 15 mL/min/1.73m2 Glucose 100 60 - 115 mg/dL [facility] Calcium 9.8 8.4 - 10.2 mg/dL [facility] Bilirubin, Total 0.3 0.0 - 1.0 mg/dL [facility] Aspartate Amino Transferase 27 5 - 31 U/L [facility] Alanine Aminotransferase 27 0 - 31 U/L [facility] Total Protein 7.9 6.5 - 8.0 g/dL [facility] Albumin Level 4.4 3.5 - 5.0 g/dL [facility] Alkaline Phosphatase 98 39 - 117 U/L [facility] Blood Venous blood specimen / Unknown 08/13/2024 12:18 PM EST 08/13/2024 12:55 PM EST us Sharon Bond MEDIA PLANNER LAB BLOOD ORDERABLES Final Resul t [facility] [address] [place] [phone] * POCT Urine (08/13/2024 12:03 PM EST) Preg Test, Ur Negative Negative, Indeterminate, None Detected, Invalid, Specimen unsatisfactory for evaluation, Weakly Positive QC Media Lot # [id number] Lot# Expiration Date [id number] Urine 08/13/2024 12:0 3 PM EST us Aurea MONSONP POINT OF CARE TEST ENTER/EDIT ORDERABLES Final Result * Chlamydia/N. Gonorrhoeae RNA, TMA, Urogenitial (08/13/2024 12:00 AM EST) CT PCR NOT DETECTED Not Detect. [facility] Comment:A not detected test result [...] psychologicalconsequences. NG PCR NOT DETECTED Not Detect. [facility] Comment:A not detected test result [...] psychologicalconsequences. Urine (Urine, Random) 08/13/2024 08/13/2024 Narrative [facility] - 08/14/2024 2:44 PM EST Urine us Aurea Johnson [facility] MICROBIOLOGY - GENERAL ORD ERABLES Final Result [facility] [address] [place] [phone] from Last 3 Months Insurance [facility] PPO Care Teams Regional Business Development Manager Relationship Specialty Start Date End Date Aurea Johnson FNP [address] [place] [phone] PCP - General Family Medicine 07/02/24
--- OUTSIDE RECORDS SUMMARY | 2024-11-09 14:22 | XMS_ITS | Encounter Summary ---
Author Organization [employer] Address [address] [place] [address] Care Team Providers Care Slate Splitter Name Role Phone Gabriel Johnsonupe MERCHANDISING MANAGER Primary Care Provider [phone] Encounter Details Date Type Department Care Team ([facility] st Contact Info) Description 08/13/2024 Orders Only [facility] [address], [place] [phone] Sharon Bond NP [address] [place], [place] [phone] Secondary amenorrhea (Primary Dx); Chronic fatigue; Obesity [...] Upcoming Encounters Date Type Department Care Team ([facility] st Contact Info) Description 11/26/2024 1:30 PM EDT Office Visit [facility] [address] [place] [phone] Aurea Johnson FNP [address] [place] [address] Pending Results Name Type Priority Associated Diagnoses Date /Time FSH Lab Routine Secondary amenorrhea 11/03/2024 9:26 AM EST LH Lab Routine Secondary amenorrhea 11/03/2024 9:26 AM EST Prolactin Lab Routine Secondary amenorrhea 11/03/2024 9:26 AM EST documented as of this encounter Procedures Procedure Name Priority Date/Time Associated Diagnosis Comments PROLACTIN Routine 11/03/2024 9:26 AM EST Secondary amenorrhea LH Routine 11/03/2024 9:26 AM EST Secondary amenorrhea FSH Routine 11/03/2024 9:26 AM EST Secondary amenorrhea PROLACTIN, DILUTION STUDY [...] * Prolactin (09/24/2024 9:44 AM EST) Prolactin [facility] Comment:DUPLICATE 09/24/2024 9:44 AM EST 09/24/2024 9:44 AM EST us Generic External Data Provider LAB BLOOD ORDERAB LES Final Result [facility] [address] [place] [address] [phone] * Prolactin, Dilution Study (09/24/2024 9:44 AM EST) Prolactin, Undiluted 30.0 ng/mL [facility] Prolactin, Diluted TNP ng/mL [facility] Comment:TEST(S) NOT PERFORME D: PROLACTIN, DILUTEDUNABLE TO REPORTInitial testing necessitateda repeat, but there wasinsufficient sample to perform.THIS TEST WAS PERFORMED AT:[facility] [address] [address]CHRISSY VIZCARRA MD 09/24/2024 9:44 AM EST 09/24/2024 9:44 AM EST Generic External Data Provider LAB BLOOD ORDERAB LES Final Result Performing Organization Address [facility] Co de Phone Number [facility] [address] [place] [phone] * Growth Hormone (GH) (09/24/2024 9:44 AM EST) Growth Hormone TNP ng/mL [facility] Comment:UNABLE TO REPORTInit ial testing necessitateda repeat, but there wasinsufficient sample to perform.THIS TEST WAS PERFORMED AT:[facility] [address] [address]DWYKFCHRISSY VIZCARRA MD 09/24/2024 9:44 AM EST 09/24/2024 9:44 AM EST us Generic External Data Provider LAB BLOOD ORDERAB LES Final Result Performing Organization Address [facility] Co de Phone Number [facility] [address] [place] [phone] * LH (09/24/2024 9:44 AM EST) Lutenizing Hormone 0.6 mIU/mL [facility] Comment:Reference Range Foll icular Phase 1.9-12.5 Mid-Cycle Peak 8.7-76.3 Luteal Phase 0.5-16.9 Postmenopausal 10.0-54.7THIS TEST WAS PERFORMED AT:[facility] [address] [address]EJRGDCHRISSY VIZCARRA MD 09/24/2024 9:44 AM EST 09/24/2024 9:44 AM EST Generic External Data Provider LAB BLOOD ORDERAB LES Final Result Performing Organization Address [facility] de Phone Number [facility] [address] [place] [phone] * FSH (09/24/2024 9:44 AM EST) Follicle Stimulating Hormone 5.3 mIU/mL [facility] Comment:Reference Range Foll icular Phase 2.5-10.2 Mid-cycle Peak 3.1-17.7 Luteal Phase 1.5- 9.1 Postmenopausal 23.0-116.3THIS TEST WAS PERFORMED AT:[facility] [address] [address]ILWATCHRISSY VIZCARRA MD 09/24/2024 9:44 AM EST 09/24/2024 9:44 AM EST Generic External Data Provider LAB BLOOD ORDERAB LES Final Result Performing Organization Address [facility] de Phone Number [facility] [address] [place] [phone] * Estradiol (09/24/2024 9:44 AM EST) Estradiol Ultra Sensitive 8 pg/mL [facility] Comment:Female Reference Ran ges for Estradiol, Ultrasensitive (pg/mL): Follicular Phase: 39-375 Luteal Phase: 48-440 Postmenopausal Phase: < or = 10This test was developed and its analytical performancecharacteristics have been determined by [employer].It has not been cleared or approved by FDA. This assay hasbeen validated pursuant to the CLIA regulations and is usedfor clinical purposes.THIS TEST WAS PERFORMED AT:[facility] [id number] [place] [address]RRRYKROBB ALVAREZ MD,PHD,ADAL 09/24/2024 9:44 AM EST 09/24/2024 9:44 AM EST us Generic External Data Provider LAB BLOOD ORDERAB LES Final Result [facility] [address] [place] [address] [phone] * Testosterone, Free (Dialysis) And Total, MS (09/24/2024 9:44 AM EST) Testosterone, Total 13 2 - 45 ng/dL [facility] Comment:For additional infor andie, please refer tohttp://education.[employer]/faq/[email or web address](This link is being provided for informational/educational purposes only.)This test was developed and its analytical performancecharacteristics have been determined by [employer], [place]. It hasnot been cleared or approved by the U.S. Food and DrugAdministration. This assay has been validated pursuantto the CLIA regulations and is used for clinicalpurposes. Testosterone, Free 1.9 0.1 - 6.4 pg/mL [facility] Comment:This test was develo ped and its analytical performancecharacteristics have been determined by [employer] [employer], [place]. It hasnot been cleared or approved by the U.S. Food and DrugAdministration. This assay has been validated pursuantto the CLIA regulations and is used for clinicalpurposes.THIS TEST WAS PERFORMED AT:[facility] [id number] [place] [address]QOLQXBISAQIB SMITH MD,PHD 09/24/2024 9:44 AM EST 09/24/2024 9:44 AM EST us Generic External Data Provider LAB BLOOD ORDERAB LES Final Result Performing Organization Address [facility] de Phone Number [facility] [address] [place] [phone] * ACTH, Plasma (09/24/2024 9:44 AM EST) ACTH, Plasma 15 6 - 50 pg/mL [facility] Comment:Reference range appl ies only to specimens collectedbetween 7am-10am.THIS TEST WAS PERFORMED AT:[facility]/[place] [id number] [place] [address]EILBAYQSAQIB SMITH MD,PHD 09/24/2024 9:44 AM EST 09/24/2024 9:44 AM EST Generic External Data Provider LAB BLOOD ORDERAB LES Final Result Performing Organization Address [facility] de Phone Number [facility] [address] [place] [phone] * IGF-1, LC/MS (09/24/2024 9:44 AM EST) IGF 1, LC/MS 151 53 - 331 ng/mL [facility] Z Score (Male) TNP [facility] Z Score (Female) 0.1 -2.0 - 2.0 SD [facility] Comment:This test was develo ped and its analytical performancecharacteristics have been determined by [employer].It has not been cleared or approved by FDA. This assay hasbeen validated pursuant to the CLIA regulations and is usedfor clinical purposes.THIS TEST WAS PERFORMED AT:[facility]/[place] [id number] [place]IN [place]OME[place] [address]MUQMGROBB ALVAREZ MD,PHD,ADAL 09/24/2024 9:44 AM EST 09/24/2024 9:44 AM EST Generic External Data Provider LAB BLOOD ORDERAB LES Final Result Performing Organization Address [facility] de Phone Number [facility] [address] [place] [phone] * DHEA Sulfate (09/24/2024 9:44 AM EST) DHEA Sulfate 92 19 - 237 mcg/dL [facility] Comment:THIS TEST WAS PERFOR MED AT:[facility] [place] [id number] VIZCARRA MD 09/24/2024 9:44 AM EST 09/24/2024 9:44 AM EST [facility] External Data Provider LAB BLOOD ORDERAB LES Final Result Performing Organization Address [facility] Phone Number [facility] [address] [place] [phone] * Cortisol Random (09/24/2024 9:44 AM EST) Cortisol Random 10.0 ug/dL [facility] Comment:Reference Range*: Be fore 10 am 6.2-19.4 ug/dL After 5 pm 2.3-11.9 ug/dL*Please interpret above results accordingly.This test was performed using the [employer] chemiluminescentmethod. Values obtained from different assay methods cannotbe used interchangeably.Patients receiving fludrocortisone, prednisolone orprednisone may show artificially elevated cortisol valuesdue to cross-reactivity. 09/24/2024 9:44 AM EST 09/24/2024 9:44 AM EST Generic External Data Provider LAB BLOOD ORDERAB LES Final Result Performing Organization Address [facility] de Phone Number [facility] [address] [place] [phone] * TSH (09/24/2024 9:44 AM EST) Thyroid Stimulating Hormone 1.01 0.32 - 4.0 uIU/mL [facility] Comment:TSH 3rd Generation ( [facility]) 09/24/2024 9:44 AM EST 09/24/2024 9:44 AM EST us Generic External Data Provider LAB BLOOD ORDERAB LES Final Result Performing Organization Address [facility]/ZIP Co de Phone Number [facility] [address] [place] [phone] * T4, Free (09/24/2024 9:44 AM EST) Pathologist [facility] Free T4 (Free Thyroxine) 1.04 0.71 - 1.85 ng/dL [facility] 09/24/2024 9:44 AM EST 09/24/2024 9:44 AM EST Generic External Data Provider LAB BLOOD ORDERAB LES Final Result Performing Organization Address [facility] Co de Phone Number [facility] [address] [place] [phone] * (ABNORMAL) Basic Metabolic Panel (09/24/2024 9:44 AM EST) Pathologist [facility] Sodium 137 135 - 145 mmol/L [facility] Potassium 4.1 3.3 - 5.1 mmol/L [facility] Chloride 110(H) 96 - 108 mmol/L [facility] Carbon Dioxide 22 22 - 29 mmol/L [facility] Anion Gap 9(L) 12 - 20 [facility] Urea Nitrogen (BUN) 15 9 - 16 mg/dL [facility] Creatinine, Serum 0.77 0.5 - 1.4 mg/dL [facility] Estimated Glomerular Filt Rate >60 [facility] Comment:Chronic Kidney Disea se: Estimated GFR < 60 mL/min/1.87c0Cmrtlx Kidney Disease: Estimated GFR < 15 mL/min/1.73m2 Glucose 100 60 - 115 mg/dL [facility] Calcium 9.0 8.4 - 10.2 mg/dL [facility] 09/24/2024 9:44 AM EST 09/24/2024 9:44 AM EST Generic External Data Provider LAB BLOOD ORDERAB LES Final Result Performing Organization Address [facility] Co de Phone Number [facility] [address] [place] [phone] * Cortisol, Free, 24 Hour Urine (09/24/2024 9:22 AM EST) Cortisol, Free, 24 hr Urine 17.3 4.0 - 50.0 mcg/24 h [facility] Comment:This test was develo ped and its analytical performancecharacteristics have been determined by [employer].It has not been cleared or approved by FDA. This assay hasbeen validated pursuant to the CLIA regulations and is usedfor clinical purposes. Creatinine, Urine 1.12 0.50 - 2.15 g/24 h [facility] Comment:THIS TEST WAS PERFOR MED AT:[facility] [id number] [place] [address]TDMNMROBB ALVAREZ MD,PHD,ADAL Total Volume 1500 mL [facility] 09/24/2024 9:22 AM EST 09/24/2024 10:04 AM EST Narrative [facility] - 09/29/2024 9:58 PM EST [id number] us Generic External Data Provider LAB BLOOD ORDERAB LES Final Result Performing Organization Address [facility] Co de Phone Number [facility] [address] [place] [phone] * CREATININE, 24 HR GROUP (09/24/2024 8:30 AM EST) Creatinine, 24 Hour Urine 1.1 1.0 - 2.0 G/Day [facility] Creatinine, Urine 71.14 [facility] Urine Total Volume 24 Hour 1,500 mL [facility] 09/24/2024 8:30 AM EST 09/24/2024 9:59 AM EST Narrative [facility] - 09/24/2024 10:50 AM EST [id number] us Generic External Data Provider LAB URINE ORDERAB LES Final Result Performing Organization Address [facility] Co de Phone Number [facility] [address] [place] [phone] * Hepatitis B surface antigen, EIA (08/13/2024 12:18 PM EST) Pathologist [facility] Hepatitis B Surface Ag Negative Negative [facility] Blood Venous blood specimen / Unknown 08/13/2024 12:18 PM EST 08/13/2024 12:55 PM EST us Sharon Bond NP LAB BLOOD ORDERABLES Final Resul t Performing Organization Address [facility] de Phone Number [facility] [address] [place] [phone] * Hepatitis B Core Antibody, Total (08/13/2024 12:18 PM EST) Hepatitis B Core Antibody Nonreactive Nonreactive [facility] Blood Venous blood specimen / Unknown 08/13/2024 12:18 PM EST 08/13/2024 12:55 PM EST Sharon Bond TITLE SUPERVISOR LAB BLOOD ORDERABLES Final Resul t Performing Organization Address [facility] Phone Number [facility] [address] [place] [phone] * Hepatitis B Surface Antibody, Qualitative (08/13/2024 12:18 PM EST) ~Hepatitis B Surface Antibody REACTIVE Nonreactive [facility] Comment:REACTIVE: > 11.99 mI U/mL Blood Venous blood specimen / Unknown 08/13/2024 12:18 PM EST 08/13/2024 12:55 PM EST us Sharon Bond TITLE SUPERVISOR LAB BLOOD ORDERABLES Final Resul t Performing Organization Address [facility] Co de Phone Number [facility] [address] [place] [address] [phone] * (ABNORMAL) Lipid Panel, Standard (08/13/2024 12:18 PM EST) Triglycerides 182(H) <150 mg/dL [facility] Comment:Desirable Triglyceri de: less than 150 mg/dLBorderline High Triglyceride 150-199 mg/dLHigh Triglyceride: 200-499 mg/dLVery High Triglyceride: greater than or equal to 5OO mg/dL Cholesterol 252(H) <200 mg/dL [facility] Comment:Desirable Cholestero l: less than 200 mg/dLBorderline High Cholesterol: 200-239 mg/dLHigh Cholesterol: greater than 239 mg/dL LDL Cholesterol Calculated 175(H) <100 mg/dL [facility] Comment:Desirable LDL: less than 100 mg/dLNear Optimal/Above Optimal LDL: 110- 129 mg/dLBorderline High LDL: 130-159 mg/dLHigh LDL: 160-189 mg/dLVery High LDL: greater than or equal to 190 mg/dL HDL Cholesterol 41 >40 mg/dL [facility] Comment:Desirable HDL: great er than 40 mg/dL Note: This HDL assay may give artificially low results in patients with liver disease. Blood Venous blood specimen / Unknown 08/13/2024 12:18 PM EST 08/13/2024 12:55 PM EST us Sharon Bond NP LAB BLOOD ORDERABLES Final Resul t Performing Organization Address [facility]/ZIP Co de Phone Number [facility] [address] [place] [phone] * Comprehensive Metabolic Panel (08/13/2024 12:18 PM EST) Sodium 139 135 - 145 mmol/L [facility] Potassium 4.0 3.3 - 5.1 mmol/L [facility] Chloride 105 96 - 108 mmol/L [facility] Carbon Dioxide 26 22 - 29 mmol/L [facility] Anion Gap 12 12 - 20 [facility] Urea Nitrogen (BUN) 11 9 - 16 mg/dL [facility] Creatinine, Serum 0.82 0.5 - 1.4 mg/dL [facility] Estimated Glomerular Filt Rate >60 [facility] Comment:Chronic Kidney Disea se: Estimated GFR < 60 mL/min/1.34w5Hjwavz Kidney Disease: Estimated GFR < 15 mL/min/1.73m2 Glucose 100 60 - 115 mg/dL [facility] Calcium 9.8 8.4 - 10.2 mg/dL [facility] Bilirubin, Total 0.3 0.0 - 1.0 mg/dL [facility] Aspartate Amino Transferase 27 5 - 31 U/L [facility] Alanine Aminotransferase 27 0 - 31 U/L [facility] Total Protein 7.9 6.5 - 8.0 g/dL [facility] Albumin Level 4.4 3.5 - 5.0 g/dL [facility] Alkaline Phosphatase 98 39 - 117 U/L [facility] Blood Venous blood specimen / Unknown 08/13/2024 12:18 PM EST 08/13/2024 12:55 PM EST us Sharon Bond TITLE SUPERVISOR LAB BLOOD ORDERABLES Final Resul t [facility] [address], [place] [phone] * Hemoglobin A1c (08/13/2024 12:18 PM EST) Hemoglobin A1c 5.4 <6.0 % [facility] Comment:Hemoglobin A1C Refer ence Range Adults: 4.8 - 6.0 % Non diabetic: < 6.0 % Goal: < 7.0 %Additional Action Suggested: > 8.0 %Note: Hemoglobin A1c results are invalid for patients with abnormal amounts of HbF. Blood transfusions may impact the HbA1c concentration in the patient sample. Estimated Average Glucose 108 mg/dL [facility] Comment:eAG = Estimated ave rage glucose which is %A1C expressed asaverage glucose, using the formula of the F2T-TptrwyiXfachtn Glucose study (ADAG), Diabetes Care, Vol.31,#8,Apr. 2007 Blood Venous blood specimen / Unknown 08/13/2024 12:18 PM EST 08/13/2024 12:55 PM EST us Sharon Bond TITLE SUPERVISOR LAB BLOOD ORDERABLES Final Resul t [facility] [address] [place] [phone] * (ABNORMAL) CBC auto differential (08/13/2024 12:18 PM EST) White Blood Count 5.9 4.8 - 10.8 X10*3/uL [facility] Red Blood Count 4.54 4.20 - 5.50 X10*6/uL [facility] Hemoglobin 13.7 12.0 - 16.0 g/dl [facility] Hematocrit 39.4 37.0 - 47.0 % [facility] Mean Corpuscular Volume 86.8 80.0 - 98.0 fL [facility] Mean Corpuscular Hemoglobin 30.2 27.0 - 33.0 pg [facility] Mean Corpuscular HGB Conc 34.8 31.0 - 35.0 g/dl [facility] Red Cell Distribution Width 13.2 11.0 - 16.0 % [facility] Platelet Count 328 160 - 400 X10*3/uL [facility] Mean Platelet Volume 10.4 9.4 - 12.3 fL [facility] Neutrophils Percent Auto 49.0 45 - 73 % [facility] Imm Gran Pct Auto 0.2 0.0 - 0.4 % [facility] Lymphocytes Percent Auto 36.7 20 - 40 % [facility] Monocytes Percent Auto 6.1 2 - 11 % [facility] Eosinophils Percent Auto 6.8(H) 0 - 4 % [facility] Basophils Percent Auto 1.2 0 - 2 % [facility] NRBC Pct Auto 0.0 0.0 - 0.2 /100WBC [facility] Neutrophils Absolute Auto 2.9 2.0 - 8.3 x10*3/uL [facility] Imm Gran Abs Auto 0.01 0.00 - 0.03 X10*3/uL [facility] Lymphocytes Absolute Auto 2.2 1.2 - 4.9 X10*3/uL [facility] Monocytes Absolute Auto 0.4 0.1 - 1.2 X10*3/uL [facility] Eosinophils Absolute Auto 0.4 0.0 - 0.4 X10*3/uL [facility] Basophils Absolute Auto 0.1 0.0 - 0.2 X10*3/uL [facility] NRBC Abs Auto 0.000 0.0 - 0.012 X10*3/uL [facility] Blood Venous blood specimen / Unknown 08/13/2024 12:18 PM EST 08/13/2024 12:55 PM EST us Sharon Bond NP LAB BLOOD ORDERABLES Final Resul t [facility] [address] [place] [phone] * HIV-1/2 Antigen and Antibodies, Fourth Generation, with Reflexes (08/13/2024 12:18 PM EST) HIV AB/AG Nonreactive Nonreactive [facility] Comment:HIV-1 p24 Ag and/or HIV-1/HIV-2 Ab not detected.A test result that is nonreactive does not exclude thepossibility of exposure to or infection with HIV-1 and/orHIV-2. Nonreactive results in this assay for individualswith prior exposure to HIV-1 and/or HIV-2 may be due toantigen and antibody levels that are below the limit ofdetection of this assay.The [employer] HIV Ag/Ab Combo assay result andsupplemental assay results should be interpreted inconjunction with the patient's clinical presentation,history and other laboratory results. If the results areinconsistent with clinical evidence, additional testing issuggested to confirm the result. Blood Venous blood specimen / Unknown 08/13/2024 12:18 PM EST 08/13/2024 12:55 PM EST Sharon Bond TITLE SUPERVISOR LAB BLOOD ORDERABLES Final Resul t Performing Organization Address [facility] Co de Phone Number [facility] [address] [place] [phone] * Hepatitis C Antibody with Reflex to HCV, RNA, Quantitative, Real-Time PCR (08/13/2024 12:18 PM EST) Hepatitis C Antibody Nonreactive Nonreactive [facility] Comment:Antibodies to HCV no t detected; does not exclude early acuteHCV infection. Blood Venous blood specimen / Unknown 08/13/2024 12:18 PM EST 08/13/2024 12:55 PM EST Sharon Bond TITLE SUPERVISOR LAB BLOOD ORDERABLES Final Resul t Performing Organization Address [facility] de Phone Number [facility] [address] [place] [phone] * (ABNORMAL) Prolactin, Dilution Study (08/13/2024 12:18 PM EST) Prolactin, Undiluted 177.3(A) ng/mL [facility] Prolactin, Diluted SEE NOTE ng/mL [facility] Comment:Result confirmed by 1:100 dilution. No high dosehook effect detected. Reference Range Females Non- 3.0-30.0 10.0-209.0 Postmenopausal 2.0-20.0Prolactin dilution studies are done to determine ifthere is a high-dose hook effect (i.e. a non-linearassay response due to a very high concentration ofProlactin). This is reported to occur at Prolactinconcentrations at or above 30,000 ng/mL.This test is not recommended for identifyingmacroprolactin. The [employer], Prolactin, Total and Monomeric is therecommended test (Order code [id number]).THIS TEST WAS PERFORMED AT:[facility] [address] [address]ZUPFQCHRISSY VIZCARRA MD Blood Venous blood specimen / Unknown 08/13/2024 12:18 PM EST 08/13/2024 12:55 PM EST Sharon Bond NP LAB BLOOD ORDERABLES Final Resul t Performing Organization Address [facility]/ZIP Co de Phone Number [facility] [address] [place] [phone] * Estradiol (08/13/2024 12:18 PM EST) Estradiol Ultra Sensitive 7 pg/mL [facility] Comment:Female Reference Ran ges for Estradiol, Ultrasensitive (pg/mL): Follicular Phase: 39-375 Luteal Phase: 48-440 Postmenopausal Phase: < or = 10This test was developed and its analytical performancecharacteristics have been determined by [employer].It has not been cleared or approved by FDA. This assay hasbeen validated pursuant to the CLIA regulations and is usedfor clinical purposes.THIS TEST WAS PERFORMED AT:[facility] [id number] [place] [address]BDGBTROBB ALVAREZ MD,PHD,ADAL Blood Venous blood specimen / Unknown 08/13/2024 12:18 PM EST 08/13/2024 12:55 PM EST Sharon Bond NP LAB BLOOD ORDERABLES Final Resul t Performing Organization Address [facility]/ZIP Co de Phone Number [facility] [address] [place] [phone] * FSH (08/13/2024 12:18 PM EST) Follicle Stimulating Hormone 1.7 mIU/mL [facility] Comment:Reference Range Foll icular Phase 2.5-10.2 Mid-cycle Peak 3.1-17.7 Luteal Phase 1.5- 9.1 Postmenopausal 23.0-116.3THIS TEST WAS PERFORMED AT:[facility] [address] [address]ARJRGPAUL VIZCARRA MD Blood Venous blood specimen / Unknown 08/13/2024 12:18 PM EST 08/13/2024 12:55 PM EST us Sharon Bond NP LAB BLOOD ORDERABLES Final Resul t [facility] [address] [place] [address] [phone] * JENS Screen,IFA, with Reflex to Titer and Pattern (08/13/2024 12:18 PM EST) Anti Nuclear Antibody Screen NEGATIVE NEGATIVE [facility] LABS Comment:JENS IFA is a first [...] clinicallysuspected inflammatory myopathies.AC-0: NegativeInternational Consensus on JENS Patterns(https://doi.org/10.1515/milj-7066-2752)For additional information, please refer tohttp://education.[employer]Young[employer]/faq/WQC785(This link is being provided for informational/educational purposes only.)THIS TEST WAS PERFORMED AT:[facility] [address] [id number] VIZCARRA MD JENS Titer TNP [facility] JENS [facility] 2 (REF LAB) [facility] JENS Pattern 2 [facility] JENS TITER 3 TNP [facility] JENS PATTERN 3 [facility] Blood Venous blood specimen / Unknown 08/13/2024 12:18 PM EST 08/13/2024 12:55 PM EST us Sharon Bond NP LAB BLOOD ORDERABLES Final Resul t Performing Organization Address City/[facility]/ZIP Co de Phone Number [facility] [address] [place] [address] [phone] * hCG, Total, Quantitative (08/13/2024 12:18 PM EST) HCG Quantitative <2 mIU/mL [facility] Comment:Weeks post LMP Appro ximate hCG(Last Menstrual Period) Range (mIU/ml)3 - 4 weeks 9 - 1304 - 5 weeks 75 - 2,6005 - 6 weeks 850 - 20,8006 - 7 weeks 4000 - 100,2007 - 12 weeks 11,500 - 289,97017 - 16 weeks 18,300 - 137,24857 - 29 weeks (2nd trimester) 1,400 - 53,37075 - 41 weeks (3rd trimester) 940 - [...] ORDERABLES Final Resul t Performing Organization Address City/[facility]/ZIP Co de Phone Number [facility] [address] [place] [address] [phone] * TSH W/Reflex to FT4 (08/13/2024 12:18 PM EST) TSH reflex Free T4 0.60 0.32 - 4.0 uIU/mL [facility] Blood Venous blood specimen / Unknown 08/13/2024 12:18 PM EST 08/13/2024 12:55 PM EST us Sharon Bond TITLE SUPERVISOR LAB BLOOD ORDERABLES Final Resul t [facility] [address] [place] [address] [phone] documented in this encounter Visit Diagnoses Diagnosis Secondary amenorrhea- Primary Absence of menstruation Chronic fatigue Other malaise and fatigue Obesity (BMI 30.0-34.9) Healthcare maintenance documented in this encounter Additional Health Concerns Assessment Noted Time PHQ-9 Depression Total Score: 7 08/13/20 24 11:41 AM EST documented as of this encounter Care Teams Slate Splitter Relationship Specialty Start Date End Date Aurea Johnson FNP [address] [place] [phone] PCP - General Family Medicine 07/02/24 documented as of this encounter
== END 2024-11-09 12:07 | disposition home or self-care (01) ==
PROVIDERS: PCP Nurse Practitioner Family; Visit Provider Student in an Organized Health Care Education/Training Program
DX: E22.1 Hyperprolactinemia (principal); D35.2 Benign neoplasm of pituitary gland
CPT/HCPCS: 99214

== ENCOUNTER 2025-02-04 12:56 | Outpatient (REF) | payer OTHER, SELFPAY ==
--- NOTE | ~2025-02-04 | MR_ITS ---
EXAMINATION: MR BRAIN WITHOUT AND WITH CONTRAST CLINICAL INFORMATION: Benign neoplasm of pituitary gland. Follow-up examination. COMPARISON: 08/26/2024. TECHNIQUE: Multiplanar, multisequence MRI of the brain and sella was obtained before and after the intravenous administration of 8.5 mL IV Gadavist. Examination performed on 1.5 Lyla Siemens high-field magnet. FINDINGS: SELLA: There is redemonstration of a hypoenhancing oval mass in the anterior pituitary gland slightly left of midline, measuring 1.0 cm in AP, by 1.2 cm in transverse, by 0.7 cm in craniocaudad dimension (series 12, image 6; series 13, image 9). This appears slightly smaller than previously where it measured 1.1 x 1.4 x 1.4 cm. There is minimal/trace right deviation of the infundibulum. There is no infundibular thickening. There is no extension of the mass into the cavernous sinuses or contact of the carotid artery flow voids. The pituitary maintains a concave superior border. There is no extension into the suprasellar cistern or compression of any suprasellar or parasellar structures. IMAGED BRAIN: No hemorrhage. No diffusion restriction. No extra-axial fluid collection. No midline shift. Ventricles, sulci, and cisterns are normal in size and configuration for patient age. No mass effect or edema. No significant white matter abnormalities. Midline structures normally formed. Cerebellar tonsils are appropriately located. No abnormal intra or extra-axial enhancement identified within the brain. The globes and orbital contents appear normal. The paranasal sinuses, mastoids, and tympanic cavities appear normal. No extracranial soft tissue abnormalities. No bone marrow signal abnormalities are evident. Mild degenerative changes at the atlantoaxial joint. MR/MR head/brain wo/w con IMPRESSION: 1. 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 It appears slightly smaller on today's exam. No mass effect or extension into the suprasellar or parasellar structures. 2. Normal-appearing brain. No acute intracranial abnormality. Electronically signed by: Aurelio Figueroa MD 02/07/2025 11:25 AM EDT
--- OUTSIDE RECORDS SUMMARY | 2025-02-04 13:10 | XMS_ITS | Encounter Summary ---
Author Organization [employer] Address [address] [facility] 7 [place] [address] Care Team Providers Care Horticultural Farmworker Name Role Phone Aurea Johnson Primary Care Provider [phone] Reason for Visit * Reason Onset Date Comments Appointment Request 02/01/2025 Encounter Details Date Type Department Care Team ([facility] Contact Info) Description 02/01/2025 Telephone [facility] MEDICINE [address] [place], [place] [phone] Aurea Johnson FNP [address] [place] [address] Appointment Request Social History Tobacco Use Types Packs/Day Years Used Date Smoking Tobacco: Never Passive Smoke Exposure: Never Smokeless Tobacco: Never Depression Answer Date Recorded Patient Health Questionnaire-9 Score 9 12/10/2024 Patient Health Questionnaire-9 Score 9 12/10/2024 Last PHQ-9: Questionnaire Data Not on file 0 12/10/2024 Housing Stability Answer Date Recorded What is [...] Date Recorded Patient Health Questionnaire-2 Score 2 12/10/2024 Internet Access Answer Date Recorded Internet Access Q1 Yes 07/22/2024 Internet Access Q2 Not on file 07/22/2024 Comments Unknown Sex and Gender Information Value Date Recorded Sex Assigned at Female 07/08/2022 10:38 AM EDT Legal Sex Female 10:38 AM EDT Gender Identity Female 07/08/2022 10:38 AM EDT Sexual Orientation Don't know 07/08/2022 10 :38 AM EDT documented as of this encounter Miscellaneous Notes * Telephone Encounter - Dayna Alaniz - 02/01/2025 12:25 PM EDT Tc from pt requesting to r.s follow up appointment scheduled for February. Pt would like to be seen in March. documented in this encounter Plan of Treatment Not on file documented as of this encounter Visit Diagnoses Not on filedocumented in this encounter Additional Health Concerns Assessment Noted Time PHQ-9 Depression Total Score: 9 12/11/19 25 11:34 AM EDT documented as of this encounter Care Teams Horticultural Farmworker Relationship Specialty Start Date End Date Aurea Johnson FNP [address] [place] [phone] PCP - General Family Medicine 07/02/24 documented as of this encounter
[2025-02-04] MEDS: gadobutroL 10 ML VIAL IVPUSH (13:37)
[2025-02-05 07:03] LABS: Follicle Stimulating Hormone 5.8 mIU/mL; Lutenizing Hormone 3.9 mIU/mL; Prolactin 5.6 ng/mL
== END 2025-02-04 12:57 | disposition home or self-care (01) ==
LOC: HO.MRI 12:56
PROVIDERS: PCP Nurse Practitioner Family; Visit Provider Student in an Organized Health Care Education/Training Program
DX: D35.2 Benign neoplasm of pituitary gland (principal); E22.1 Hyperprolactinemia
CPT/HCPCS: 36415; 70553; 82670; 83001; 83002; 84146; A9585

== ENCOUNTER → 2025-02-04 13:00 | Outpatient (BNV) | payer OTHER, SELFPAY | PROVIDERS: PCP Nurse Practitioner Family; Visit Provider Radiology Diagnostic Radiology | DX: D49.7 Neoplasm of unspecified behavior of endocrine glands and other parts of nervous system (principal) | CPT/HCPCS: 70553 ==

== ENCOUNTER 2025-02-28 15:33 | Outpatient (AMB) | payer OTHER, SELFPAY ==
[2025-02-28 15:35] VITALS: BP 102/74; PULSE 78; O2SAT 95; BMI 38.4
--- NOTE | 2025-02-28 15:35 | A.OFFVIS_ITS ---
Vital Signs 3 02/28/25 15:35 Height 5 ft Weight 196 lb 6.91 oz BMI 38.4 BP 102/74 Blood Pressure Location Lt brachial Position Sitting Pulse 78 Pulse Source Pulse Oximeter Pulse Oximetry (%) 95 Oxygen Delivery Method Room Air Intake Visit Reasons: Hyperprolactinemia Intake Note: Patient present today for Hyperprolactinemia office visit. Moderate Needs Teacher Required: No Accompanied by: Self / Same As Patient Allergies No Known Allergies Allergy (Verified 02/28/25 15:39) Medication List - Last Reconciled 02/28/25 by Oanh Meza MD buspirone 10 mg PO BID cabergoline 0.25 mg (1/2 x 0.5 mg) PO 2XW HPI Comments Details: 34-year-old female coming in today for follow up of hyperprolactinemia and pituitary macroadenoma. HPI from initial visit Labs from 08/13/2024 showed prolactin level elevated at 177.3. Estradiol level of 7 which is low, with a low normal FSH of 1.7. Normal kidney function. TSH normal at 0.6. Lab work was done as she had not had a menstrual cycle for some time . Pituitary MRI from 08/26/2024 showed a pituitary macroadenoma with a 1.4 cm hypoenhancing mass occupying almost the entire pituitary gland. Trace rightward deviation of the infundibulum. Optic chiasm is normal. Cavernous sinus normal. Started on cabergoline 0.25 mg every Friday started 09/03/24. By PCP. She is tolerating it well without any nausea or vomiting. Vision changes: none Headache: once a week or in 2 weeks, not bothered by it Nipple discharge: none , no breast soreness Business Services Manager history: Menarche: 9 years of age LMP:2020, 3 years Pregnancies : no In a relationship with cis male but not sexually active currently used to use condoms Was on OCP for seven years stopped in , her periods used to be light on that Change in sense of smell: no Change in ring size: feels increased due to gained weight Change in shoe size: none Reports some fatigue, hot flushes on cheeks. Reports hair loss . Reports occasional loose stools. Patient currently denies heat or cold intolerance, palpitation, mood changes, changes in appearance of eyes or vision changes, tremors, increased diaphoresis or dry skin. ? Easy bruising: yes Proximal muscle weakness: none No DM, HTN Left wrist 2005 while playing basket ball Nausea: none Vomiting:none Lightheadedness: none Weight: GAined 50 lbs in the past 5 years No history of heart disease , valvulopathy Works in [employer] with partner Interval history 11/09/2024 Currently on cabergoline 0.25 mg twice weekly. Friday and Friday Increased on last appointment 09/21/2024. Repeat labs 09/24/2024: Showed prolactin had come down to 30 pg/mL, estradiol was low at 8 within inappropriately normal FSH of 5.3 and LH of 0.6. and otherwise normal pituitary panel. Another set of labs done 11/03/2024 shows prolactin now down to 5.1 pg/mL. Estradiol level pending, normal FSH LH. LMP: 11/06/24 : first period back. No nausea , vomiting, lightheadenss, dizziness Feels have been having low mood Interval history 02/28/2025 11/30/2024: Visual field done with the [facility], were unremarkable Labs repeated January 2025 showed prolactin is again within normal range at 5.6. MRI brain repeated with and without contrast 02/04/2025 showed some decrease in the size of the macroadenoma which is now measuring 1 X1.2 X 0.7 cm down from 1.1 x 1.4 X1.4 cm , there is still some deviation of the infundibulum, optic chiasm is not affected. LMP 02/24/25 no nipple discharge, this was never a problem. Currently on cabergoline 0.25 mg twice weekly. Friday and Friday No nausea , vomiting, lightheadenss, dizziness Reports depression that has persisted despite trying multiple SSRIs , she is quite bothered by the depressive symptoms and would like surgical evaluation as she does not want to be on Cabergoline for long-term. Physical exam General: sitting comfortably in no acute distress HEENT: normocephalic/atraumatic, EOM intact, visual oakley grossly intact Neck: supple, symmetrical, no thyromegaly Cardiac: normal heart sounds Pulm: normal breath sounds B/L, no added breath sounds Abd: not distended, no tenderness Extremities: no edema, no signs of myxedema Neuro: AAO x3, Speech: normal, no facial droop, moving all 4 extremities Laboratory Tests 03/02/23 08/13/24 22:05 12:18 Creatinine 0.82 Estimated GFR > 60 TSH 0.60 Estradiol Ultra LCMSMS 7 FSH 1.7 Prolactin Undiluted 177.3 H Beta HCG, Quant < 2 Urine Test NEGATIVE Laboratory Tests 08/13/24 09/24/24 09/24/24 12:18 09:22 09:44 TSH 1.01 Free T4 1.04 Estradiol Ultra LCMSMS 7 8 FSH 1.7 5.3 Luteinizing Hormone 0.6 Prolactin Undiluted 177.3 H 30.0 Prolactin Total Testosterone 13 Fr Testosterone Dialys 1.9 DHEA Sulfate 92 Somatomedin-C 151 Somato-C Z-Score Female 0.1 Random Cortisol 10.0 ACTH 15 Urine Total Volume 1500 Ur Creatinine 24 Hour 1.12 Ur Free Cortisol 24 Hr 17.3 11/03/24 09:26 TSH Free T4 Estradiol Ultra LCMSMS FSH 3.9 Luteinizing Hormone 5.3 Prolactin Undiluted Prolactin 5.1 Total Testosterone Fr Testosterone Dialys DHEA Sulfate Somatomedin-C Somato-C Z-Score Female Random Cortisol ACTH Urine Total Volume Ur Creatinine 24 Hour Ur Free Cortisol 24 Hr Laboratory Tests 11/03/24 02/04/25 09:26 13:56 Estradiol Ultra LCMSMS 82 77 FSH 3.9 5.8 Luteinizing Hormone 5.3 3.9 Prolactin 5.1 5.6 MR BRAIN WITHOUT AND WITH CONTRAST 02/04/25 CLINICAL INFORMATION: Benign neoplasm of pituitary gland. Follow-up examination. COMPARISON: 08/26/2024. TECHNIQUE: Multiplanar, multisequence MRI of the brain and sella was obtained before and after the intravenous administration of 8.5 mL IV Gadavist. Examination performed on 1.5 Lyla Siemens high-field magnet. FINDINGS: SELLA: There is redemonstration of a hypoenhancing oval mass in the anterior pituitary gland slightly left of midline, measuring 1.0 cm in AP, by 1.2 cm in transverse, by 0.7 cm in craniocaudad dimension (series 12, image 6; series 13, image 9). This appears slightly smaller than previously where it measured 1.1 x 1.4 x 1.4 cm. There is minimal/trace right deviation of the infundibulum. There is no infundibular thickening. There is no extension of the mass into the cavernous sinuses or contact of the carotid artery flow voids. The pituitary maintains a concave superior border. There is no extension into the suprasellar cistern or compression of any suprasellar or parasellar structures. IMAGED BRAIN: No hemorrhage. No diffusion restriction. No extra-axial fluid collection. No midline shift. Ventricles, sulci, and cisterns are normal in size and configuration for patient age. No mass effect or edema. No significant white matter abnormalities. Midline structures normally formed. Cerebellar tonsils are appropriately located. No abnormal intra or extra-axial enhancement identified within the brain. The globes and orbital contents appear normal. The paranasal sinuses, mastoids, and tympanic cavities appear normal. No extracranial soft tissue abnormalities. No bone marrow signal abnormalities are evident. Mild degenerative changes at the atlantoaxial joint. MR/MR head/brain wo/w con IMPRESSION: 1. 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 It appears slightly smaller on today's exam. No mass effect or extension into the suprasellar or parasellar structures. 2. Normal-appearing brain. No acute intracranial abnormality. Electronically signed by: Aurelio Figueroa MD 02/07/2025 11:25 AM EDT RP MR BRAIN WITHOUT AND WITH CONTRAST 08/26/24 CLINICAL INFORMATION: Secondary abdomen area. Prolactin level 177.3 COMPARISON: None available. TECHNIQUE: Multiplanar, multisequence MRI of the brain was obtained before and after the intravenous administration of 4.5 mL Gadavist. FINDINGS: The sella is expanded and protrudes into the left sphenoid sinus. There is a 1.1 x 1.4 x 1.4 cm left paracentral hypoenhancing mass occupying almost the entire pituitary gland. Trace rightward deviation of the infundibulum. The suprasellar cistern is normal. The optic chiasm and prechiasmatic optic nerves are normal. The cavernous sinuses are normal. No abnormal intracranial enhancement. No acute intracranial hemorrhage or infarct. No edema, midline shift or hydrocephalus. No acute extra-axial fluid collections. The osseous structures are unremarkable. The pineal gland and remaining midline structures are unremarkable. No orbital pathology. The paranasal sinuses and mastoid air cells are clear. 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 -No acute intracranial abnormality. Electronically signed by: Carrillo Celeste MD 08/26/2024 01:18 PM [facility] Medical History (Updated 09/21/24 @ 10:51 by Oanh Meza MD) Pituitary macroadenoma Hyperprolactinemia Environmental allergies IBS (irritable bowel syndrome) Surgical History History of laparoscopic cholecystectomy (~03/03/23) Family History Mother Non Hodgkin's lymphoma Father No known health problems Social History Alcohol intake: never Patient Tobacco Use Status: Never used Tobacco Physical Exam Vital Signs: Last Vital Signs Pulse 78 02/28/25 15:35 BP 102/74 02/28/25 15:35 Pulse Ox 95 02/28/25 15:35 Oxygen Delivery Method Room Air 02/28/25 15:35 BMI result Body Mass Index 38.4 Assessment & Plan Assessment & Plan (1) Hyperprolactinemia: Code(s): E22.1 - Hyperprolactinemia Category: Medical Plan: 34-year-old female here today for initial evaluation of hyperprolactinemia and pituitary macroadenoma. Labs from 08/13/2024 showed prolactin level elevated at 177.3. Estradiol level of 7 which is low, with a low normal FSH of 1.7. Normal kidney function. TSH normal at 0.6. Lab work was done as she had not had a menstrual cycle for some time . Pituitary MRI from 08/26/2024 showed a pituitary macroadenoma with a 1.4 cm hypoenhancing mass occupying almost the entire pituitary gland. Trace rightward deviation of the infundibulum. Optic chiasm is normal. Cavernous sinus normal. She was started on Cabergoline 0.25 mg in so we can August and I increased it to twice weekly in September 2024. She continues on this. Visual field testing done November 2024 was normal. Labs repeated January 2025 showed prolactin is again within normal range at 5.6. MRI brain repeated with and without contrast 02/04/2025 showed some decrease in the size of the macroadenoma which is now measuring 1 X1.2 X 0.7 cm down from 1.1 x 1.4 X1.4 cm , there is still some deviation of the infundibulum, optic chiasm is not affected. LMP 02/24/25, now having monthly periods. Currently on cabergoline 0.25 mg twice weekly. Friday and Friday Unfortunately she Reports depression that has persisted despite trying multiple SSRIs , she is quite bothered by the depressive symptoms and would like surgical evaluation as she does not want to be on Cabergoline for long-term. I also discussed with the patient today that there has been a shift in guidelines since 2022 where in a young female with pituitary adenoma, transsphenoidal resection is also an option especially given the low risk of complications and higher rates of remission. Patient is interested in meeting with Neurosurgery to discuss her options especially given she is having depressive symptoms of the Cabergoline.. Plan: -continue cabergoline 0.25 mg twice a week -plan to repeat labs prior to next appointment in with a prolactin level as well as estradiol and FSH and LH in June 2025 -neurosurgery referral placed -follow up in 4 months Patient was counseled today regarding side effects of cabergoline including nausea, orthostatic hypotension. Patient does take the medication in the evening with a meal to avoid these. Also counseled regarding side effects of impulse control disorder and cardiac valvulopathy. Given low dosage we will not obtain echocardiogram in her. Normal kidney function noted prior to starting medication. Patient was also counseled regarding sikh of menses and increased chance of and to use reliable contraceptive method if she is trying to prevent . Was also counseled to inform us if she has a positive test. Although available evidence suggests cabergoline use early in does not cause harm to the fetus, it is recommended that dopamine agonist therapy be discontinued once is discovered (ES [[place] 2010]; TERA [[place] 2020]). (2) Pituitary macroadenoma: Code(s): D35.2 - Benign neoplasm of pituitary gland Category: Medical Plan: See above Plan I spent 30 minutes in reviewing the record, seeing the patient and documenting in the medical record. Orders: Orders 2 Prolactin 06/13/25 D35.2 - Benign neoplasm of pituitary gland, E22.1 - Hyperprolactinemia Follicle Stimulating Hormone 06/13/25 D35.2 - Benign neoplasm of pituitary gland, E22.1 - Hyperprolactinemia Lutenizing Hormone 06/13/25 D35.2 - Benign neoplasm of pituitary gland, E22.1 - Hyperprolactinemia Estradiol Ultra Sensitive 06/13/25 D35.2 - Benign neoplasm of pituitary gland, E22.1 - Hyperprolactinemia Patient Instructions: Coding Level of Care Code Est Pt Level 4 (65526) Diagnoses Hyperprolactinemia E22.1 Pituitary macroadenoma D35.2 Time Spent (min) 30
--- OUTSIDE RECORDS SUMMARY | 2025-02-28 17:02 | XMS_ITS | Encounter Summary ---
Author Organization [employer] Address [address] [place] [address] Care Team Providers Care Press Department Manager Name Role Phone Aurea Johnson Primary Care Provider [phone] Reason for Visit * Reason Comments Pre-visit Planning SDOH unable to reach LVM Encounter Details Date Type Department Care Team ([facility] st Contact Info) Description 02/25/2025 Patient Outreach [facility] MED & PEDS [address] [place] [address] Aurea Johnson, WASH HELPER [address] [place] [address] Pre-visit Planning (SDOH unable to reach LVM/) Social History Tobacco Use Types Packs/Day Years [...] AM EDT documented as of this encounter Progress Notes * Dian Santiago - 02/25/2025 2:32 PM EDT JORGE Chaparro placed outbound call to patient to complete pre-visit planning. No answer at this time. Patient name and were not confirmed. CC left voicemail requesting return call. Direct contactinformation provided. documented in this encounter Plan of Treatment Upcoming Encounters Date Type Department Care Team (Late st Contact Info) Description 03/04/2025 2:30 PM EDT Office Visit [facility] MEDICINE [address] [place] [address] Aurea Johnson FNP [address] [place] [address] documented as of this encounter Visit Diagnoses Not on filedocumented in this encounter Additional Health Concerns Assessment Noted Time PHQ-9 Depression Total Score: 9 12/11/19 11:34 AM EDT documented as of this encounter Care Teams Press Department Manager Relationship Specialty Start Date End Date Aurea Johnson FNP [address] [place] [address] PCP - General Family Medicine 07/02/24 documented as of this encounter
== END 2025-02-28 16:07 | disposition home or self-care (01) ==
LOC: HO.ENCR 15:33
PROVIDERS: PCP Nurse Practitioner Family; Visit Provider Student in an Organized Health Care Education/Training Program
DX: E22.1 Hyperprolactinemia (principal); D35.2 Benign neoplasm of pituitary gland
CPT/HCPCS: 99214